=== PATIENT | male | born 1940 | race African-American/Black ===

== ENCOUNTER → 2020-06-25 | Outpatient (CLI) | payer BC ==
--- NOTE | 2020-06-26 02:21 | MR ---
EXAMINATION TYPE: MR brain wo/w con DATE OF EXAM: 06/25/2020 COMPARISON: None HISTORY: Mental status changes. CONTRAST: Standard multiplanar, multisequence MRI departmental protocol utilizing 9 mL intravenous Gadavist pranav olinium contrast. There is diffuse cerebral cortical atrophy. There is no mass effect nor midline shift. There is no si gn of intracranial hemorrhage. There is some thinning of the corpus callosum. Diffusion images show n o evidence of an acute infarct. On the T2 and FLAIR images there are numerous foci of white matter hi gh signal around the lateral ventricles. These are coalescent and measure up to 1 cm. There are small er more peripheral high signal foci at the mullins-white matter junction of both cerebral hemispheres. T he brainstem is intact. Cerebellum is intact. Sella turcica appears intact. The contrast images show no pathologic enhancement. There is normal enhancement of the venous sinuses . IMPRESSION: Extensive white matter coalescent increased signal around the lateral ventricles and mullins-white matte r junction of both cerebral hemispheres. This probably relates to chronic small vessel ischemia. Demy elinating disease also possible. No evidence of an acute infarct. Cerebral atrophy.
== END | disposition home or self-care (01) ==
LOC: RADMRIMAIN 18:31
PROVIDERS: ATTEND Physician Assistant Medical
DX: R90.89 Other abnormal findings on diagnostic imaging of central nervous system (principal); G31.84 Mild cognitive impairment of uncertain or unknown etiology
CPT/HCPCS: 70553; A9585

== ENCOUNTER 2020-12-11 06:50 | Day surgery (SDC) | payer BC ==
[2020-12-10 11:44] VITALS: BMI 31.6
[~2020-12-11 06:50] MED LIST: LACTATED RINGERS 1,000 ML IV SCH; LIDOCAINE 1% (10MG/ML) FOR IV START INTRADERMA PRN
[2020-12-11 07:30] VITALS: TEMP 97.3
[2020-12-11 07:42] LABS: Glucose,Whole Blood 96 mg/dL (75-99)
[2020-12-11] MEDS ORDERED: PROPOFOL 10 MG/ML 20 ML VIAL IV ONE (08:02)
[2020-12-11] MEDS ORDERED: GLUCAGON 1 MG/ML VIAL ONE (08:02)
--- NOTE | 2020-12-11 08:10 | P.GSHP ---
History of Present Illness H&P Date: 12/11/20 Chief Complaint: GI bleed This is a 80-year-old male who's had issues with rectal bleeding. Patient presents today for colonoscopy. Past Medical History Past Medical History: Asthma, Coronary Artery Disease (CAD), Cancer, Diabetes Mellitus, Hyperlipidemia, Hypertension, Myocardial Infarction ([place]) Additional Past Medical History / Comment(s): 12-16-14 ADMITTTED WITH AFIB/FLUTTER. OTHER PAST HX INCLUDES: PROSTATE CANCER. Myocardial infarction Last Myocardial Infarction Date:: 06/30/2015 History of Any Multi-Drug Resistant Organisms: None Reported Past Surgical History: Coronary Bypass/CABG, Heart Catheterization, Heart Catheterization With Stent, Prostate Surgery Additional Past Surgical History / Comment(s): TRIPLE VESSEL CABG-06/30/2015. COLONOSCOPY Past Anesthesia/Blood Transfusion Reactions: No Reported Reaction Date of Last Stent Placement:: 2004 Smoking Status: Former smoker - Past Family History Father Family Medical History: CVA/TIA Mother Family Medical History: Cancer Additional Family Medical History / Comment(s): COLON CANCER Medications and Allergies Home Medications Medication Instructions Recorded Confirmed Type Montelukast [Singulair] 10 mg PO HS 11/26/14 12/11/20 History Atorvastatin [Lipitor] 20 mg PO HS #30 tab 12/14/14 12/11/20 Rx Aspirin EC [Ecotrin Low Dose] 81 mg PO DAILY #60 tablet. 12/19/14 12/11/20 Rx Losartan [Cozaar] 100 mg PO DAILY #60 tab 12/19/14 12/11/20 Rx sitaGLIPtin [Januvia] 100 mg PO DAILY #30 tab 07/02/15 12/11/20 Rx Ergocalciferol [Vitamin D2 (1250 1,250 mcg PO MO 12/10/20 12/11/20 History Mcg = 98364 Iu)] Insulin Detemir [Levemir Flextouch 35 units SQ HS 12/10/20 12/11/20 History Pen] Metoprolol Tartrate [Lopressor] 25 mg PO HS 12/10/20 12/11/20 History Metoprolol Tartrate [Lopressor] 50 mg PO QAM 12/10/20 12/11/20 History glyBURIDE [Diabeta] 5 mg PO AC-BID 12/10/20 12/11/20 History hydroCHLOROthiazide [Hydrodiuril] 25 mg PO DAILY 12/10/20 12/11/20 History Allergies Allergy/AdvReac Type Severity Reaction Status Date / Time No Known Allergies Allergy Verified 12/10/20 11:27 Surgical - Exam Vital Signs Temp Pulse Resp BP Pulse Ox 97.3 F L 67 16 153/78 98 12/11/20 07:24 12/11/20 07:24 12/11/20 07:24 12/11/20 07:24 12/11/20 07:24 - General well developed, well nourished, no distress - Eyes PERRL - ENT normal pinna - Neck no masses - Respiratory normal expansion - Cardiovascular Rhythm: regular - Abdomen Abdomen: soft, non tender Assessment and Plan Assessment: GI bleed. We'll perform colonoscopy.
--- NOTE | 2020-12-11 08:45 | P.OP ---
Date of Procedure: 12/11/20 Preoperative Diagnosis: GI bleed Postoperative Diagnosis: Sigmoid colon mass Procedure(s) Performed: Colonoscopy Anesthesia: MAC Surgeon: Daryl Womack Pathology: other (Sigmoid colon) Condition: stable Disposition: PACU Description of Procedure: The patient's placed on the endoscopy table in the lateral position. He received IV sedation. Digital rectal exam was performed which revealed no abnormalities. The prostate was symmetric without nodules. Flexible colonoscope was then placed patient anus passed throughout the entire colon. Ileocecal valve was visualized. Cecum, ascending and transverse colon appeared normal. The descending colon appeared normal. In the sigmoid colon at approximately 27 cm art there was a friable mass seen. This was biopsied. It had the suspicious characteristics of a colon cancer. The scope was brought back the rectum this appeared normal. Scope was withdrawn for patient.
[2020-12-11 08:50] VITALS: RESP 20
[2020-12-11 09:15] VITALS: BP 110/70; PULSE 58
== END 2020-12-11 09:26 | disposition home or self-care (01) ==
LOC: ORWHC2ENDO 06:50
PROVIDERS: ATTEND Surgery
DX: C18.7 Malignant neoplasm of sigmoid colon (principal); J45.909 Unspecified asthma, uncomplicated; I25.10 Atherosclerotic heart disease of native coronary artery without angina pectoris; E11.9 Type 2 diabetes mellitus without complications; E78.5 Hyperlipidemia, unspecified; I10 Essential (primary) hypertension; I25.2 Old myocardial infarction; Z85.46 Personal history of malignant neoplasm of prostate; I48.91 Unspecified atrial fibrillation; I48.92 Unspecified atrial flutter; Z95.5 Presence of coronary angioplasty implant and graft; Z95.1 Presence of aortocoronary bypass graft; Z98.890 Other specified postprocedural states; Z87.891 Personal history of nicotine dependence; Z82.49 Family history of ischemic heart disease and other diseases of the circulatory system; Z80.0 Family history of malignant neoplasm of digestive organs; Z79.84 Long term (current) use of oral hypoglycemic drugs; Z79.82 Long term (current) use of aspirin; Z79.4 Long term (current) use of insulin; Z79.899 Other long term (current) drug therapy; K92.2 Gastrointestinal hemorrhage, unspecified
CPT/HCPCS: 88305; 45380; J1610; J2704; 45381

== ENCOUNTER → 2020-12-22 | Outpatient (CLI) | payer BC ==
[2020-12-22 13:48] LABS: Potassium 4.7 mmol/L (3.5-5.1)
[2020-12-22 14:03] LABS: HCT 43.7 % (39.0-53.0); HGB 14.1 gm/dL (13.0-17.5); MCH 29.9 pg (25.0-35.0); MCHC 32.3 g/dL (31.0-37.0); MCV 92.6 fL (80.0-100.0); Mean Platelet Volume 7.9; Platelet Count 205 k/uL (150-450); RBC 4.72 m/uL (4.30-5.90); RDW 13.8 % (11.5-15.5); WBC 6.3 k/uL (3.8-10.6)
== END | disposition home or self-care (01) ==
LOC: LABPAT 11:35
PROVIDERS: ATTEND Surgery
DX: Z01.812 Encounter for preprocedural laboratory examination (principal); C18.9 Malignant neoplasm of colon, unspecified
CPT/HCPCS: 80051; 85027

== ENCOUNTER 2020-12-29 08:22 | Inpatient (IN) | payer BC ==
[~2020-12-29 08:22] MED LIST changes: +ACETAMINOPHEN TAB 500 MG TAB PO PRN; +DEXAMETHASONE SOD PHOSPHATE 4 MG/ML 1 ML VIAL IV ONE; +HEPARIN SODIUM,PORCINE/PF 5,000 UNIT/0.5 ML SYRINGE SQ PRN; +HYDROmorphone 0.5 MG/0.5 ML SYRINGE IVP PRN; -LACTATED RINGERS 1,000 ML IV SCH; +MIDAZOLAM 2 MG/2 ML VIAL IV PRN; +ONDANSETRON 4 MG/2 ML VIAL IVP ONE
[2020-12-29 09:07] LABS: Glucose,Whole Blood 178 mg/dL (75-99)
[2020-12-29] MEDS: LACTATED RINGERS 1,000 ML IV SCH (09:08)
[2020-12-29] MEDS ORDERED: MIDAZOLAM 2 MG/2 ML VIAL IVP ONE (10:25)
[2020-12-29] MEDS ORDERED: ALVIMOPAN 12 MG CAPSULE PO ONE (10:54)
--- NOTE | 2020-12-29 10:58 | P.GSHP ---
History of Present Illness H&P Date: 12/29/20 Chief Complaint: Colon cancer Is a 80-year-old male who had complaints of rectal bleeding. Patient's workup with colonoscopy. 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 He presents today for low anterior resection. Past Medical History Past Medical History: Asthma, Coronary Artery Disease (CAD), Cancer, Diabetes Mellitus, Hyperlipidemia, Hypertension, Myocardial Infarction ([place]), Osteoarthritis (OA), Prostate Disorder Additional Past Medical History / Comment(s): PROSTATE CANCER. colon cancer, Last Myocardial Infarction Date:: 06/30/2015 History of Any Multi-Drug Resistant Organisms: None Reported Past Surgical History: Coronary Bypass/CABG, Heart Catheterization, Heart Catheterization With Stent, Prostate Surgery Additional Past Surgical History / Comment(s): TRIPLE VESSEL CABG-06/30/2015, COLONOSCOPY, two cardiac stents Past Anesthesia/Blood Transfusion Reactions: No Reported Reaction Date of Last Stent Placement:: 2004 Smoking Status: Former smoker - Past Family History Father Family Medical History: CVA/TIA Mother Family Medical History: Cancer Additional Family Medical History / Comment(s): COLON CANCER Medications and Allergies Home Medications Medication Instructions Recorded Confirmed Type Montelukast [Singulair] 10 mg PO QAM 11/26/14 12/24/20 History Atorvastatin [Lipitor] 20 mg PO HS #30 tab 12/14/14 12/24/20 Rx Aspirin EC [Ecotrin Low Dose] 81 mg PO DAILY #60 tablet. 12/19/14 12/24/20 Rx sitaGLIPtin [Januvia] 100 mg PO DAILY #30 tab 07/02/15 12/24/20 Rx Ergocalciferol [Vitamin D2 (1250 1,250 mcg PO MO 12/10/20 12/24/20 History Mcg = 38806 Iu)] Insulin Detemir [Levemir Flextouch 35 units SQ HS 12/10/20 12/24/20 History Pen] Metoprolol Tartrate [Lopressor] 25 mg PO HS 12/10/20 12/24/20 History Metoprolol Tartrate [Lopressor] 50 mg PO QAM 12/10/20 12/24/20 History glyBURIDE [Diabeta] 5 mg PO AC-BID 12/10/20 12/24/20 History hydroCHLOROthiazide [Hydrodiuril] 25 mg PO DAILY 12/10/20 12/24/20 History Losartan [Cozaar] 100 mg PO AC-SUPPER 12/24/20 12/24/20 History Allergies Allergy/AdvReac Type Severity Reaction Status Date / Time No Known Allergies Allergy Verified 12/29/20 08:48 Surgical - Exam Vital Signs Temp Pulse Resp BP Pulse Ox 97.4 F L 66 16 154/85 98 12/29/20 08:56 12/29/20 08:56 12/29/20 08:56 12/29/20 08:56 12/29/20 08:56 - General well developed, well nourished, no distress - Eyes PERRL - ENT normal pinna - Neck no masses - Respiratory normal expansion - Cardiovascular Rhythm: regular - Abdomen Abdomen: soft, non tender Results - Labs Abnormal Lab Results - Last 24 Hours (Table) 12/29/20 Range/Units 09:05 POC Glucose (mg/dL) 178 H (75-99) mg/dL Assessment and Plan Assessment: History of colon cancer. We'll perform a low anterior section. I discussed the risk of possible colostomy with the patient and his daughter.
[2020-12-29] MEDS ORDERED: NEOSTIGMINE 1 MG/ML 10 ML VIAL ONE (11:30)
[2020-12-29] MEDS ORDERED: ePHEDrine SULFATE/0.9% NACL/PF 50 MG/5 ML SYRINGE IV ONE (11:30)
[2020-12-29] MEDS ORDERED: PROPOFOL 10 MG/ML 20 ML VIAL IV ONE (11:30)
[2020-12-29] MEDS ORDERED: GLYCOPYRROLATE 0.2 MG/ML 2 ML VIAL ONE (11:30)
[2020-12-29] MEDS ORDERED: MIDAZOLAM 2 MG/2 ML VIAL ONE (11:30)
[2020-12-29] MEDS ORDERED: LIDOCAINE 1% INJ 10MG/ML (20 ML MDV) ONE (11:30)
[2020-12-29] MEDS ORDERED: fentaNYL (PF) 50 MCG/ML 2 ML AMP ONE (11:30)
[2020-12-29] MEDS ORDERED: ROCURONIUM 10 MG/ML (5 ML VIAL) IV ONE (11:30)
[2020-12-29] MEDS ORDERED: SUCCINYLCHOLINE CHLORIDE 100 MG/5 ML SYR IV ONE (11:30)
[2020-12-29] MEDS ORDERED: NALOXONE 0.4 MG/ML 1 ML VIAL IV PRN (11:30)
--- NOTE | 2020-12-29 11:30 | P.ANPRN ---
Procedure Note - Anesthesia - Epidural/Spinal Epidural Continuous Time Out Performed: Yes Date of Procedure: 12/29/20 Procedure Start Time: 10:24 Procedure Stop Time: 10:38 Location of Patient: PreOp Indication: Acute Post-Operative Pain Sedation Type: Sedate with meaningful contact maintained Preparation: Sterile Dressing Position: Sitting Catheter: Indwelling Needle Guage: 18 Injectate: Test Dose Lidocaine1.5% w/1:200,000 epi (3cc without response) Blood Aspirated: No Pain Paresthesia on Injection Noted: No Events: Uneventful and Well Tolerated
[2020-12-29] MEDS: metroNIDAZOLE-NS PMX 500 MG in SALINE 1 100ML.BAG IVPB PRN ×2 (11:50→12:02)
[2020-12-29] MEDS ORDERED: LACTATED RINGERS 1,000 ML IV ONE (12:29)
[2020-12-29] MEDS ORDERED: METOCLOPRAMIDE 5 MG/ML 2 ML VIAL IVP PRN (13:01)
--- NOTE | 2020-12-29 13:01 | P.OP ---
Date of Procedure: 12/29/20 Preoperative Diagnosis: Sigmoid colon cancer Postoperative Diagnosis: Sigmoid colon cancer Procedure(s) Performed: Low anterior resection Anesthesia: DAYNA Surgeon: Daryl Womack Estimated Blood Loss (ml): 25 Pathology: other (Sigmoid colon) Condition: stable Disposition: PACU Description of Procedure: DESCRIPTION OF PROCEDURE: The patient was placed on the operating table in the supine position. Patient received a general anesthesia. Patient was then placed in the dorsal lithotomy position. The patients abdomen was prepped and draped in the usual sterile fashion. Through a low midline incision, the abdomen was entered. The Cooper retractor was placed in the wound. The stomach appeared normal. The small bowel appeared normal. The liver appeared normal. The right colon and transverse colon appeared normal. On the left colon, there was an extensive diverticulosis noted. The sigmoid colon was then mobilized by dividing the white line of Toldt with electrocautery. At this point, the proximal sigmoid colon was transected with a GI stapler after a window had been made in the mesentery. The distal sigmoid colon was then dissected. Mesentery was taken down between Nell clamps and ligated with #0 silk ties. At a point beyond the lesion, the bowel was then transected with a Proximate stapler. This was then removed. The splenic flexure was then taken down in order to provide adequate lengthening of the sigmoid colon. At this point, the auto purse-string suture device was placed across the proximal colon and fired. The colon was then opened. The 29 mm EEA anvil was then placed into the colon and then the purse-string was secured. The EEA stapler device was then placed in the patients anus and passed into the rectum. The nail for the EEA was then brought out through the distal rectum and then attached to the anvil. The EEA stapler device was then fired. The anastomosis was inspected. There were 2 good donuts of tissue removed from the EEA stapler. The anastomosis was then tested under water and there was no air leak seen. At this point the abdomen was then irrigated. There was no bleeding seen. The fascia was then closed with double stranded #1 PDS. The skin was closed with li. The patient tolerated the procedure well.
[2020-12-29 13:34] LABS: Glucose,Whole Blood 185 mg/dL (75-99)
[2020-12-29] MEDS: ROPIVACAINE 250 MG, fentaNYL (PF) 625 MCG in SODIUM CHLORIDE 0.9% 188 ML EPIDURAL PRN (13:47)
[2020-12-29] MEDS: D5-0.45% NACL WITH KCL 20MEQ/L 1,000 ML IV SCH (17:51)
[2020-12-29] MEDS: HEPARIN SODIUM,PORCINE/PF 5,000 UNIT/0.5 ML SYRINGE SQ SCH ×2 (17:51→22:49)
[2020-12-29 19:33] LABS: Glucose,Whole Blood 185 mg/dL (75-99)
[2020-12-30] MEDS: D5-0.45% NACL WITH KCL 20MEQ/L 1,000 ML IV SCH ×4 (03:41→18:13)
--- NOTE | 2020-12-30 07:34 | P.PN ---
Progress Note - Text Progress Note Date: 12/30/20 Postoperative day # 1 status post low anterior resection ,epidural catheter placed for postoperative analgesia, patient doing well epidural site okay, patient currently on combination of epidural infusion solution of Ropivacaine 0.0625% and FentanyL the infusion rate at 10 ml per hour , patient had no motor deficit epidural site okay , vital signs stable ,VAS 0/10 , Assessment and plan= post operative day #1 patient doing well ,pain well controlled , there is no anesthesia related complications
[2020-12-30] MEDS: LACTATED RINGERS 1,000 ML IV SCH ×2 (07:38→22:56)
[2020-12-30] MEDS: ALVIMOPAN 12 MG CAPSULE PO SCH ×2 (08:04→21:04)
[2020-12-30] MEDS: HEPARIN SODIUM,PORCINE/PF 5,000 UNIT/0.5 ML SYRINGE SQ SCH ×2 (08:04→15:24)
[2020-12-30 09:09] LABS: Basophils % (A) 0 %; Eosinophils # (A) 0.2 k/uL (0-0.7); Eosinophils % (A) 2 %; HCT 38.6 % (39.0-53.0); HGB 12.9 gm/dL (13.0-17.5); Lymphocytes # (A) 2.1 k/uL (1.0-4.8); Lymphocytes % (A) 19 %; MCHC 33.5 g/dL (31.0-37.0); MCV 89.6 fL (80.0-100.0); Mean Platelet Volume 7.3; Monocytes # (A) 0.5 k/uL (0-1.0); Monocytes % (A) 4 %; Neutrophils # (A) 7.9 k/uL (1.3-7.7); Neutrophils % (A) 73 %; Platelet Count 200 k/uL (150-450); RBC 4.31 m/uL (4.30-5.90); RDW 14.3 % (11.5-15.5); WBC 10.9 k/uL (3.8-10.6)
[2020-12-30 09:29] LABS: African American GFR (CKD) 62 (>60 ml/min/1.73 sqM); Anion Gap 4 mmol/L; Blood Urea Nitrogen 11 mg/dL (9-20); Calcium 8.6 mg/dL (8.4-10.2); Carbon Dioxide 27 mmol/L (22-30); Chloride 104 mmol/L (98-107); Glucose 215 mg/dL (74-99); Non-African American GFR(CKD) 54 (>60 ml/min/1.73 sqM); Potassium 4.4 mmol/L (3.5-5.1); Sodium 135 mmol/L (137-145)
[2020-12-30] MEDS: METOPROLOL TARTRATE 25 MG TAB PO SCH ×2 (10:09→21:04)
[2020-12-30] MEDS: hydroCHLOROthiazide 25 MG TAB PO SCH (10:09)
[2020-12-30] MEDS: SIMETHICONE 40 MG/0.6 ML DROPS 2,000 MG/30 ML BOTTLE PO SCH ×4 (10:10→21:04)
[2020-12-30 11:25] LABS: Glucose,Whole Blood 206 mg/dL (75-99)
[2020-12-30] MEDS: ROPIVACAINE 250 MG, fentaNYL (PF) 625 MCG in SODIUM CHLORIDE 0.9% 188 ML EPIDURAL PRN (11:37)
--- NOTE | 2020-12-30 11:51 | P.PN ---
Subjective Progress Note Date: 12/30/20 CHIEF COMPLAINT: Sigmoid colon cancer HISTORY OF PRESENT ILLNESS: Patient is status post lower anterior resection and appendectomy. Postop day #1. Patient has epidural in place. He reports his pain is controlled. Denies any nausea or vomiting. He is complaining of some gas pains denies any flatus or BM. Currently nothing by mouth. Afebrile. WBC is 10.9 hemoglobin 12.9 and platelets 200 sodium 135 potassium 4.4 creatinine is 1.26 glucose 215 urine output adequate PHYSICAL EXAM: VITAL SIGNS: Reviewed. GENERAL: Well-developed in no acute distress. HEENT: No sclera icterus. Extraocular movements grossly intact. Moist buccal mucosa. Head is atraumatic, normocephalic. ABDOMEN: Soft. Mildly distended. There is 3 small areas of small blood saturation noted on incisional dressing. And also noted at the distal aspect of the incisional dressing NEUROLOGIC: Alert and oriented. Cranial nerves II through XII grossly intact. ASSESSMENT: 1. Sigmoid colon cancer status post lower anterior resection and appendectomy PLAN: -Continue epidural for pain control -Continue Sandoval catheter -Keep patient nothing by mouth except for ice chips, gum and medications -Add Mylicon gas drops for gas pains -continue IV fluids -Encouraged patient to use incentive spirometer -Encouraged patient to increase activity -DVT prophylaxis subcu heparin and GI prophylaxis will add protonix Physician Billing Typist note has been reviewed by physician. Signing provider agrees with the documented findings, assessment, and plan of care. Objective - Vital Signs Vital signs: Vital Signs Temp 99.1 F 12/30/20 05:24 Pulse 89 12/30/20 05:24 Resp 16 12/30/20 05:24 BP 114/72 12/30/20 05:24 Pulse Ox 96 12/30/20 05:24 Intake & Output 12/29/20 12/30/20 12/30/20 18:59 06:59 18:59 Intake Total 2117 Output Total 800 600 Balance 1318 -600 Weight 90 kg Intake: IV 2117 Output: Urine 770 600 Estimated Blood Loss 30 Other: Voiding Method Indwelling Catheter Indwelling Catheter # Bowel Movements 0 0 - Labs CBC & Chem 7: 12/30/20 09:00 12/30/20 09:00 Labs: Abnormal Lab Results - Last 24 Hours (Table) 12/29/20 12/29/20 12/30/20 Range/Units 13:32 19:30 09:00 WBC 10.9 H (3.8-10.6) k/uL Hgb 12.9 L (13.0-17.5) gm/dL Hct 38.6 L (39.0-53.0) % Neutrophils # 7.9 H (1.3-7.7) k/uL Sodium (137-145) mmol/L Creatinine (0.66-1.25) mg/dL Glucose (74-99) mg/dL POC Glucose (mg/dL) 185 H 185 H (75-99) mg/dL 12/30/20 12/30/20 Range/Units 09:00 11:23 WBC (3.8-10.6) k/uL Hgb (13.0-17.5) gm/dL Hct (39.0-53.0) % Neutrophils # (1.3-7.7) k/uL Sodium 135 L (137-145) mmol/L Creatinine 1.26 H (0.66-1.25) mg/dL Glucose 215 H (74-99) mg/dL POC Glucose (mg/dL) 206 H (75-99) mg/dL
[2020-12-30] MEDS: PANTOPRAZOLE 40 MG/10 ML VIAL IVP SCH (13:07)
[2020-12-30] MEDS: INSULIN ASPART (NovoLOG) 100 UNIT/ML VIAL SQ SCH ×3 (13:08→21:04)
[2020-12-30] MEDS: LOSARTAN 50 MG TAB PO SCH (15:25)
[2020-12-30 17:11] LABS: Glucose,Whole Blood 167 mg/dL (75-99)
[2020-12-30 20:55] LABS: Glucose,Whole Blood 182 mg/dL (75-99)
[2020-12-30] MEDS: ATORVASTATIN 20 MG TAB PO SCH (21:04)
[2020-12-31] MEDS: HEPARIN SODIUM,PORCINE/PF 5,000 UNIT/0.5 ML SYRINGE SQ SCH ×3 (00:14→18:02)
[2020-12-31] MEDS: D5-0.45% NACL WITH KCL 20MEQ/L 1,000 ML IV SCH ×3 (02:10→20:28)
[2020-12-31 07:19] LABS: Glucose,Whole Blood 247 mg/dL (75-99)
--- NOTE | 2020-12-31 08:26 | P.CONS ---
History of Present Illness - Reason for Consult Consult date: 12/30/20 Requesting physician: Daryl Womack - History of Present Illness Issa Jennings is a 80 yo M with PMH of T2DM, HTN who is admitted for LAR. He was noted with rectal bleeding and on subsequent colonoscopy was found to have colorectal cancer. He is POD#1 today, overall feeling well, denies abdominal pain, nausea, vomiting. He has epidural in place today. He has not had a bowel movement. He has not yet had a chance to see Oncology. Review of Systems All systems: negative Constitutional: Reports weakness, Denies chills, Denies fever Eyes: denies blurred vision, denies pain Ears, nose, mouth and throat: Denies headache, Denies sore throat Cardiovascular: Denies chest pain, Denies shortness of breath Respiratory: Denies cough Gastrointestinal: Denies abdominal pain, Denies diarrhea, Denies nausea, Denies vomiting Musculoskeletal: Denies myalgias Integumentary: Denies pruritus, Denies rash Neurological: Denies numbness, Denies weakness Psychiatric: Denies anxiety, Denies depression Endocrine: Denies fatigue, Denies weight change Past Medical History Past Medical History: Asthma, Coronary Artery Disease (CAD), Cancer, Diabetes Mellitus, Hyperlipidemia, Hypertension, Myocardial Infarction ([place]), Osteoarthritis ([place]), Prostate Disorder Additional Past Medical History / Comment(s): PROSTATE CANCER. colon cancer, Last Myocardial Infarction Date:: 06/30/2015 History of Any Multi-Drug Resistant Organisms: None Reported Past Surgical History: Coronary Bypass/CABG, Heart Catheterization, Heart Catheterization With Stent, Prostate Surgery Additional Past Surgical History / Comment(s): TRIPLE VESSEL CABG-06/30/2015, COLONOSCOPY, two cardiac stents Past Anesthesia/Blood Transfusion Reactions: No Reported Reaction Date of Last Stent Placement:: 2004 Smoking Status: Former smoker - Past Family History Father Family Medical History: CVA/TIA Mother Family Medical History: Cancer Additional Family Medical History / Comment(s): COLON CANCER Medications and Allergies Home Medications Medication Instructions Recorded Confirmed Type Montelukast [Singulair] 10 mg PO QAM 11/26/14 12/24/20 History Atorvastatin [Lipitor] 20 mg PO HS #30 tab 12/14/14 12/24/20 Rx Aspirin EC [Ecotrin Low Dose] 81 mg PO DAILY #60 tablet. 12/19/14 12/24/20 Rx sitaGLIPtin [Januvia] 100 mg PO DAILY #30 tab 07/02/15 12/24/20 Rx Ergocalciferol [Vitamin D2 (1250 1,250 mcg PO MO 12/10/20 12/24/20 History Mcg = 47215 Iu)] Insulin Detemir [Levemir Flextouch 35 units SQ HS 12/10/20 12/24/20 History Pen] Metoprolol Tartrate [Lopressor] 25 mg PO HS 12/10/20 12/24/20 History Metoprolol Tartrate [Lopressor] 50 mg PO QAM 12/10/20 12/24/20 History glyBURIDE [Diabeta] 5 mg PO AC-BID 12/10/20 12/24/20 History hydroCHLOROthiazide [Hydrodiuril] 25 mg PO DAILY 12/10/20 12/24/20 History Losartan [Cozaar] 100 mg PO AC-SUPPER 12/24/20 12/24/20 History Allergies Allergy/AdvReac Type Severity Reaction Status Date / Time No Known Allergies Allergy Verified 12/29/20 08:48 Physical Exam Vitals: Vital Signs Temp Pulse Resp BP BP Pulse Ox 12/31/20 05:00 100.4 F H 95 16 102/66 95 12/30/20 20:22 99.4 F 70 16 164/92 96 12/30/20 15:20 98.6 F 103 H 16 126/76 95 12/30/20 13:05 55 L 123/66 12/30/20 12:52 99.6 F 96 17 143/91 98 Intake and Output 12/30/20 12/31/20 12/31/20 22:59 06:59 14:59 Intake Total 30 1215 Output Total 200 1100 Balance -170 115 Intake: Intake, IV Titration 1200 Amount D5-0.45% NaCl with KCl 1200 20Meq/l 1,000 ml @ 125 mls/hr IV .Q8H [facility] Rx#: [id number] Oral 30 15 Output: Urine 200 1100 Other: Voiding Method Indwelling Catheter # Bowel Movements 0 General: elderly male in NAD, vitals reviewed HEENT: normocephalic, atraumatic, mucus membranes moist Neck: supple, no thyromegaly, no JVD CV: RRR, no murmur. Pulses 2+ Lungs: Normal effort, clear throughout Abd: soft, generalized tenderness Neuro: alert and oriented x3, no focal deficits Skin: warm and dry Results CBC & Chem 7: 12/30/20 09:00 12/30/20 09:00 Labs: Abnormal Lab Results - Last 24 Hours (Table) 12/30/20 12/30/20 12/30/20 Range/Units 09:00 09:00 11:23 WBC 10.9 H (3.8-10.6) k/uL Hgb 12.9 L (13.0-17.5) gm/dL Hct 38.6 L (39.0-53.0) % Neutrophils # 7.9 H (1.3-7.7) k/uL Sodium 135 L (137-145) mmol/L Creatinine 1.26 H (0.66-1.25) mg/dL Glucose 215 H (74-99) mg/dL POC Glucose (mg/dL) 206 H (75-99) mg/dL 12/30/20 12/30/20 12/31/20 Range/Units 17:05 20:54 07:16 WBC (3.8-10.6) k/uL Hgb (13.0-17.5) gm/dL Hct (39.0-53.0) % Neutrophils # (1.3-7.7) k/uL Sodium (137-145) mmol/L Creatinine (0.66-1.25) mg/dL Glucose (74-99) mg/dL POC Glucose (mg/dL) 167 H 182 H 247 H (75-99) mg/dL Assessment and Plan Plan: 1. Colorectal cancer s/p LAR. Await pathology, advance diet per surgery. Will need outpatient follow up with Oncology and surgery 2. HTN. Resume home antihypertensives 3. T2DM. Hold jauvia. Accucheck, sliding scale insulin
[2020-12-31] MEDS: ALVIMOPAN 12 MG CAPSULE PO SCH ×2 (09:04→20:29)
[2020-12-31] MEDS: PANTOPRAZOLE 40 MG/10 ML VIAL IVP SCH (09:04)
[2020-12-31] MEDS: hydroCHLOROthiazide 25 MG TAB PO SCH (09:05)
[2020-12-31] MEDS: METOPROLOL TARTRATE 25 MG TAB PO SCH ×2 (09:05→20:28)
[2020-12-31] MEDS: SIMETHICONE 40 MG/0.6 ML DROPS 2,000 MG/30 ML BOTTLE PO SCH ×4 (09:06→20:29)
[2020-12-31] MEDS: INSULIN ASPART (NovoLOG) 100 UNIT/ML VIAL SQ SCH ×4 (09:07→20:28)
[2020-12-31 09:37] LABS: Basophils % (A) 0 %; Eosinophils # (A) 0.1 k/uL (0-0.7); Eosinophils % (A) 1 %; HCT 43.2 % (39.0-53.0); HGB 14.1 gm/dL (13.0-17.5); Lymphocytes # (A) 1.2 k/uL (1.0-4.8); Lymphocytes % (A) 13 %; MCH 30.1 pg (25.0-35.0); MCHC 32.6 g/dL (31.0-37.0); MCV 92.1 fL (80.0-100.0); Mean Platelet Volume 7.5; Monocytes # (A) 0.5 k/uL (0-1.0); Monocytes % (A) 6 %; Neutrophils % (A) 79 %; Platelet Count 201 k/uL (150-450); RBC 4.69 m/uL (4.30-5.90); RDW 14.2 % (11.5-15.5); WBC 8.8 k/uL (3.8-10.6)
[2020-12-31 09:46] LABS: African American GFR (CKD) 57 (>60 ml/min/1.73 sqM); Anion Gap 5 mmol/L; Blood Urea Nitrogen 9 mg/dL (9-20); Calcium 8.7 mg/dL (8.4-10.2); Carbon Dioxide 24 mmol/L (22-30); Chloride 105 mmol/L (98-107); Glucose 271 mg/dL (74-99); Non-African American GFR(CKD) 50 (>60 ml/min/1.73 sqM); Potassium 4.7 mmol/L (3.5-5.1); Sodium 134 mmol/L (137-145)
[2020-12-31 11:24] LABS: Glucose,Whole Blood 219 mg/dL (75-99)
[2020-12-31] MEDS: ROPIVACAINE 250 MG, fentaNYL (PF) 625 MCG in SODIUM CHLORIDE 0.9% 188 ML EPIDURAL PRN (12:11)
--- NOTE | 2020-12-31 12:57 | P.PN ---
Subjective Progress Note Date: 12/31/20 CHIEF COMPLAINT: Sigmoid colon cancer HISTORY OF PRESENT ILLNESS: Patient is status post lower anterior resection and appendectomy. Postop day #2. Patient has epidural in place. He reports his pain is controlled. Denies any nausea or vomiting. Patient denies any flatus or BM. Patient did have a temp of 100.4 this morning. WBC 8.8 hemoglobin 14.1 platelets 201 sodium 134 creatinine 1.35 glucose 219 PHYSICAL EXAM: VITAL SIGNS: Reviewed. GENERAL: Well-developed in no acute distress. HEENT: No sclera icterus. Extraocular movements grossly intact. Moist buccal mucosa. Head is atraumatic, normocephalic. ABDOMEN: Soft. Mildly distended. Incision site clean dry and intact NEUROLOGIC: Alert and oriented. Cranial nerves II through XII grossly intact. ASSESSMENT: 1. Sigmoid colon cancer status post lower anterior resection and appendectomy 2. Low-grade temperature 0.4 likely due to atelectasis. We'll monitor PLAN: -Continue epidural for pain control -Continue Sandoval catheter -Keep patient nothing by mouth except for ice chips, gum and medications -continue IV fluids -Encouraged patient to use incentive spirometer -Encouraged patient to increase activity -DVT prophylaxis subcu heparin and GI prophylaxis protonix Physician Structural Engineering Technician note has been reviewed by physician. Signing provider agrees with the documented findings, assessment, and plan of care. Objective - Vital Signs Vital signs: Vital Signs Temp 98.3 F 12/31/20 12:36 Pulse 89 12/31/20 12:36 Resp 17 12/31/20 12:36 BP 128/79 12/31/20 12:36 Pulse Ox 97 12/31/20 12:36 Intake & Output 12/30/20 12/31/20 12/31/20 18:59 06:59 18:59 Intake Total 1245 245.667 Output Total 700 1100 Balance -700 145 245.667 Intake: Intake, IV Titration 1200 245.667 Amount D5-0.45% NaCl with KCl 1200 20Meq/l 1,000 ml @ 125 mls/hr IV .Q8H [facility] Rx#: [id number] Ropivacaine 250 mg 245.667 fentaNYL (PF) 625 mcg In Sodium Chloride 0.9% 188 ml @ Per Protocol EPIDURAL .Q0M PRN Rx#: [id number] Oral 45 Output: Urine 700 1100 Other: Voiding Method Indwelling Catheter Indwelling Catheter Indwelling Catheter # Bowel Movements 0 - Labs CBC & Chem 7: 12/31/20 09:12 12/31/20 09:12 Labs: Abnormal Lab Results - Last 24 Hours (Table) 12/30/20 12/30/20 12/31/20 Range/Units 17:05 20:54 07:16 Sodium (137-145) mmol/L Creatinine (0.66-1.25) mg/dL Glucose (74-99) mg/dL POC Glucose (mg/dL) 167 H 182 H 247 H (75-99) mg/dL 12/31/20 12/31/20 Range/Units 09:12 11:13 Sodium 134 L (137-145) mmol/L Creatinine 1.35 H (0.66-1.25) mg/dL Glucose 271 H (74-99) mg/dL POC Glucose (mg/dL) 219 H (75-99) mg/dL
--- NOTE | 2020-12-31 15:17 | P.PN ---
Progress Note - Text Progress Note Date: 12/31/20 Anesthesia Postop day 2 Status post low anterior resection with epidural catheter day #3 Patient seen and examined. Doing well without complaint. VAS 9 out of 10rest able. Patient very happy with pain control. No nausea vomiting or pruritus. Ropivacaine 0.1% with fentanyl 2.5 mcg/mL at 10 mL an hour. Objective: Vital signs reviewed Lungs: Good chest excursion Abdomen: Appears nondistended Other: Epidural Site Intact without induration. Dressing intact Neuro: No apparent motor block. Sensory within normal limits. Assessment: Status post low anterior resection with epidural postoperative day #2 Plan: Continue current care with your medical management. Anticipate catheter removal tomorrow. Discussed with nurse about holding heparin in a.m.
--- NOTE | 2020-12-31 15:38 | P.PN ---
Subjective Progress Note Date: 12/31/20 Issa Jennings is a 80 yo M with PMH of T2DM, HTN who is admitted for LAR. He was noted with rectal bleeding and on subsequent colonoscopy was found to have colorectal cancer. He is POD#1 today, overall feeling well, denies abdominal pain, nausea, vomiting. He has epidural in place today. He has not had a bowel movement. He has not yet had a chance to see Oncology. 12/31/2020 Pain controlled with epidural. Tolerating ice chips. Denies nausea vomiting. Minimal flatus. T-max 100.4, afebrile. Creatinine up to 1.35., Glucose 219. 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 Benign appendix without histopathologic abnormality. Objective - Vital Signs Vital signs: Vital Signs Temp 98.3 F 12/31/20 12:36 Pulse 89 12/31/20 12:36 Resp 17 12/31/20 12:36 BP 128/79 12/31/20 12:36 Pulse Ox 97 12/31/20 12:36 Intake & Output 12/30/20 12/31/20 12/31/20 18:59 06:59 18:59 Intake Total 1245 245.667 Output Total 700 1100 Balance -700 145 245.667 Intake: Intake, IV Titration 1200 245.667 Amount D5-0.45% NaCl with KCl 1200 20Meq/l 1,000 ml @ 125 mls/hr IV .Q8H [facility] Rx#: [id number] Ropivacaine 250 mg 245.667 fentaNYL (PF) 625 mcg In Sodium Chloride 0.9% 188 ml @ Per Protocol EPIDURAL .Q0M PRN Rx#: [id number] Oral 45 Output: Urine 700 1100 Other: Voiding Method Indwelling Catheter Indwelling Catheter Indwelling Catheter # Bowel Movements 0 - Exam General: elderly male in NAD, vitals reviewed HEENT: normocephalic, atraumatic, mucus membranes moist Neck: supple, no thyromegaly, no JVD CV: RRR, no murmur. Pulses 2+ Lungs: Normal effort, clear throughout Abd: soft, generalized tenderness Neuro: alert and oriented x3, no focal deficits Skin: warm and dry - Labs CBC & Chem 7: 12/31/20 09:12 12/31/20 09:12 Labs: Abnormal Lab Results - Last 24 Hours (Table) 12/30/20 12/30/20 12/31/20 Range/Units 17:05 20:54 07:16 Sodium (137-145) mmol/L Creatinine (0.66-1.25) mg/dL Glucose (74-99) mg/dL POC Glucose (mg/dL) 167 H 182 H 247 H (75-99) mg/dL 12/31/20 12/31/20 Range/Units 09:12 11:13 Sodium 134 L (137-145) mmol/L Creatinine 1.35 H (0.66-1.25) mg/dL Glucose 271 H (74-99) mg/dL POC Glucose (mg/dL) 219 H (75-99) mg/dL Assessment and Plan Assessment: Colorectal cancer status post LAR and appendectomy. Hypertension Diabetes mellitus type 2 Plan: Continue on current medication regime ,monitoring and symptomatic treatment. Diet advancement as per surgery. Pain management. Increase ambulation as tolerated. Aggressive pulmonary toileting with incentive spirometer reinforced. Close monitoring of renal function with repeat labs ordered for a.m. The impression and plan of care has been dictated as directed. : I performed a history and examination of this patient, discussed the same with the dictator. I agree with the dictator's note ,documented as a scribe. Any additional findings or plans will be noted.
[2020-12-31 17:27] LABS: Glucose,Whole Blood 195 mg/dL (75-99)
[2020-12-31] MEDS: LOSARTAN 50 MG TAB PO SCH (18:08)
[2020-12-31 19:58] LABS: Glucose,Whole Blood 147 mg/dL (75-99)
[2020-12-31] MEDS: ATORVASTATIN 20 MG TAB PO SCH (20:28)
[2021-01-01] MEDS: HEPARIN SODIUM,PORCINE/PF 5,000 UNIT/0.5 ML SYRINGE SQ SCH ×3 (00:16→18:03)
[2021-01-01 07:08] LABS: Glucose,Whole Blood 221 mg/dL (75-99)
[2021-01-01] MEDS: LACTATED RINGERS 1,000 ML IV SCH (08:54)
[2021-01-01] MEDS: METOPROLOL TARTRATE 25 MG TAB PO SCH ×2 (09:02→22:18)
[2021-01-01] MEDS: ALVIMOPAN 12 MG CAPSULE PO SCH ×2 (09:02→22:17)
[2021-01-01] MEDS: PANTOPRAZOLE 40 MG/10 ML VIAL IVP SCH (09:03)
[2021-01-01] MEDS: INSULIN ASPART (NovoLOG) 100 UNIT/ML VIAL SQ SCH ×4 (09:03→22:16)
[2021-01-01] MEDS: SIMETHICONE 40 MG/0.6 ML DROPS 2,000 MG/30 ML BOTTLE PO SCH ×4 (09:03→22:18)
--- NOTE | 2021-01-01 10:53 | P.PN ---
Subjective Progress Note Date: 01/01/21 CHIEF COMPLAINT: Sigmoid colon cancer HISTORY OF PRESENT ILLNESS: Patient is status post lower anterior resection and appendectomy. Postop day #3. Patient reports his pain is controlled. Currently has epidural in place. He did have some nausea. No vomiting. He is having flatus. No bowel movement. Afebrile. BMP pending PHYSICAL EXAM: VITAL SIGNS: Reviewed. GENERAL: Well-developed in no acute distress. HEENT: No sclera icterus. Extraocular movements grossly intact. Moist buccal mucosa. Head is atraumatic, normocephalic. ABDOMEN: Soft. Mildly distended. Incision dressing small area of saturation yellowish color NEUROLOGIC: Alert and oriented. Cranial nerves II through XII grossly intact. ASSESSMENT: 1. 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 Signing provider agrees with the documented findings, assessment, and plan of care. Objective - Vital Signs Vital signs: Vital Signs Temp 98.9 F 01/01/21 05:00 Pulse 70 01/01/21 05:00 Resp 17 01/01/21 05:00 BP 99/63 01/01/21 05:00 Pulse Ox 97 01/01/21 05:00 Intake & Output 12/31/20 01/01/21 01/01/21 18:59 06:59 18:59 Intake Total 805.600 3615 Output Total 350 1200 Balance -104.333 300 Intake: Intake, IV Titration 035.193 1093 Amount D5-0.45% NaCl with KCl 1500 20Meq/l 1,000 ml @ 125 mls/hr IV .Q8H [facility] Rx#: [id number] Ropivacaine 250 mg 245.667 fentaNYL (PF) 625 mcg In Sodium Chloride 0.9% 188 ml @ Per Protocol EPIDURAL .Q0M PRN Rx#: [id number] Output: Urine 350 1200 Other: Voiding Method Indwelling Catheter Indwelling Catheter # Bowel Movements 0 - Labs CBC & Chem 7: 12/31/20 09:12 12/31/20 09:12 Labs: Abnormal Lab Results - Last 24 Hours (Table) 12/31/20 12/31/20 12/31/20 Range/Units 11:13 17:24 19:57 POC Glucose (mg/dL) 219 H 195 H 147 H (75-99) mg/dL 01/01/21 Range/Units 07:06 POC Glucose (mg/dL) 221 H (75-99) mg/dL
--- NOTE | 2021-01-01 11:26 | P.PN ---
Progress Note - Text Progress Note Date: 01/01/21 Anesthesia Postop day #3 Status post low anterior resection with epidural day #4 Patient seen and examined. Doing well without complaint. VAS 9 out of 10. Rest able. No nausea vomiting or pruritus. Ropivacaine 0.1% with fentanyl 2.5 mcg/mL at 10 mL an hour. Objective: Vital signs reviewed Lungs: Good chest excursion Abdomen: Appears nondistended Other: Epidural Site Intact without induration. Dressing intact Neuro: No apparent motor block. Sensory within normal limits. Assessment: Status post low anterior resection postop day #4 Plan: Continue current care with your medical management. Discontinue epidural. Communicated with nurse. Heparin to continue to be held until after epidural pull.
[2021-01-01] MEDS: HYDROcodone/APAP 5-325MG 1 EACH TAB PO PRN ×2 (11:56→19:21)
[2021-01-01] MEDS: D5-0.45% NACL WITH KCL 20MEQ/L 1,000 ML IV SCH ×3 (12:10→23:47)
[2021-01-01 12:15] LABS: Glucose,Whole Blood 205 mg/dL (75-99)
[2021-01-01] MEDS: HYDROmorphone 1 MG/ML 1 ML SYRINGE IVP PRN (14:24)
--- NOTE | 2021-01-01 16:22 | P.PN ---
Subjective Progress Note Date: 01/01/21 Issa Jennings is a 80 yo M with PMH of T2DM, HTN who is admitted for LAR. He was noted with rectal bleeding and on subsequent colonoscopy was found to have colorectal cancer. He is POD#1 today, overall feeling well, denies abdominal pain, nausea, vomiting. He has epidural in place today. He has not had a bowel movement. He has not yet had a chance to see Oncology. 12/31/2020 Pain controlled with epidural. Tolerating ice chips. Denies nausea vomiting. Minimal flatus. T-max 100.4, afebrile. Creatinine up to 1.35., Glucose 219. 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 Benign appendix without histopathologic abnormality. 01/01/2021 scheduled to have epidural discontinued today. Reports bloatedness, minimal passing of flatus, no bowel movement with mild nausea. Abdomen dist ended. Pain controlled. T-max 99. Labs pending. Reports he ambulated in the hallway yesterday, tolerating exertion well. Denies chest pain, palpitations or shortness of breath. Maintaining O2 sats in the high 90s on room air. Objective - Vital Signs Vital signs: Vital Signs Temp 98.9 F 01/01/21 05:00 Pulse 70 01/01/21 05:00 Resp 17 01/01/21 05:00 BP 99/63 01/01/21 05:00 Pulse Ox 97 01/01/21 05:00 Intake & Output 12/31/20 01/01/21 01/01/21 18:59 06:59 18:59 Intake Total 392.572 7256 Output Total 350 1200 Balance -104.333 300 Intake: Intake, IV Titration 511.777 5727 Amount D5-0.45% NaCl with KCl 1500 20Meq/l 1,000 ml @ 125 mls/hr IV .Q8H [facility] Rx#: [id number] Ropivacaine 250 mg 245.667 fentaNYL (PF) 625 mcg In Sodium Chloride 0.9% 188 ml @ Per Protocol EPIDURAL .Q0M PRN Rx#: [id number] Output: Urine 350 1200 Other: Voiding Method Indwelling Catheter Indwelling Catheter # Bowel Movements 0 - Exam General: elderly male in NAD, vitals reviewed HEENT: normocephalic, atraumatic, mucus membranes moist Neck: supple, no thyromegaly, no JVD CV: RRR, no murmur. Pulses 2+ Lungs: Normal effort, clear throughout Abd: soft, distended, generalized tenderness Neuro: alert and oriented x3, no focal deficits Skin: warm and dry - Labs CBC & Chem 7: 12/31/20 09:12 12/31/20 09:12 Labs: Abnormal Lab Results - Last 24 Hours (Table) 12/31/20 12/31/20 12/31/20 Range/Units 11:13 17:24 19:57 POC Glucose (mg/dL) 219 H 195 H 147 H (75-99) mg/dL 01/01/21 Range/Units 07:06 POC Glucose (mg/dL) 221 H (75-99) mg/dL Assessment and Plan Assessment: Colorectal cancer status post LAR and appendectomy. Hypertension Diabetes mellitus type 2 Plan: Continue on current medication regime ,monitoring and symptomatic treatment. Diet advancement/ Pain management as per surgery. Increase ambulation as tolerated. Aggressive pulmonary toileting with incentive spirometer reinforced. BMP pending- Close monitoring of renal function with repeat labs ordered for a.m. The impression and plan of care has been dictated as directed. : I performed a history and examination of this patient, discussed the same with the dictator. I agree with the dictator's note ,documented as a scribe. Any a dditional findings or plans will be noted.
[2021-01-01 17:11] LABS: African American GFR (CKD) 52.7 (60.0-200.0); Anion Gap 14.6 mmol/L (4.00-12.00); BUN/Creat Ratio 5.69 Ratio (12.00-20.00); Blood Urea Nitrogen 8.3 mg/dL (9.0-27.0); Calcium 8.6 mg/dL (8.7-10.3); Carbon Dioxide 18.6 mmol/L (21.6-31.8); Non-African American GFR(CKD) 45.5 (60.0-200.0); Potassium 4.9 mmol/L (3.5-5.5)
[2021-01-01 17:23] LABS: Glucose,Whole Blood 252 mg/dL (75-99)
[2021-01-01] MEDS: LOSARTAN 50 MG TAB PO SCH (18:02)
[2021-01-01 20:14] LABS: Glucose,Whole Blood 231 mg/dL (75-99)
[2021-01-01] MEDS: ATORVASTATIN 20 MG TAB PO SCH (22:18)
[2021-01-02] MEDS: HEPARIN SODIUM,PORCINE/PF 5,000 UNIT/0.5 ML SYRINGE SQ SCH ×3 (01:28→16:50)
--- NOTE | 2021-01-02 02:05 | XR ---
EXAMINATION TYPE: XR chest 1V DATE OF EXAM: 01/02/2021 COMPARISON: 06/29/2015 HISTORY: Weakness TECHNIQUE: Single view FINDINGS: There is no heart failure nor confluent pneumonic infiltrate. Costophrenic angles show some subtle mild blunting on the right side. There are no hilar masses. There are sternal wires. Bony tho rax is intact. IMPRESSION: There is small right pleural effusion that appears new compared to old exam. No heart ariana lure.
[2021-01-02] MEDS: D5-0.45% NACL WITH KCL 20MEQ/L 1,000 ML IV SCH ×3 (06:13→22:15)
[2021-01-02 07:16] LABS: Glucose,Whole Blood 208 mg/dL (75-99)
[2021-01-02] MEDS: LACTATED RINGERS 1,000 ML IV SCH (07:36)
[2021-01-02] MEDS: HYDROmorphone 1 MG/ML 1 ML SYRINGE IVP PRN ×4 (07:37→21:57)
[2021-01-02] MEDS: ALVIMOPAN 12 MG CAPSULE PO SCH ×2 (07:38→21:46)
[2021-01-02] MEDS: INSULIN ASPART (NovoLOG) 100 UNIT/ML VIAL SQ SCH ×4 (07:39→21:46)
[2021-01-02] MEDS: METOPROLOL TARTRATE 25 MG TAB PO SCH ×2 (07:39→21:45)
[2021-01-02] MEDS: PANTOPRAZOLE 40 MG/10 ML VIAL IVP SCH (07:40)
[2021-01-02] MEDS: SIMETHICONE 40 MG/0.6 ML DROPS 2,000 MG/30 ML BOTTLE PO SCH ×4 (07:41→21:46)
[2021-01-02 08:52] LABS: Basophils % (A) 0 %; Eosinophils # (A) 0.4 k/uL (0-0.7); Eosinophils % (A) 6 %; HCT 43.7 % (39.0-53.0); HGB 13.8 gm/dL (13.0-17.5); Lymphocytes # (A) 1.4 k/uL (1.0-4.8); Lymphocytes % (A) 20 %; MCH 29.7 pg (25.0-35.0); MCHC 31.7 g/dL (31.0-37.0); MCV 93.7 fL (80.0-100.0); Mean Platelet Volume 7.7; Monocytes # (A) 0.5 k/uL (0-1.0); Monocytes % (A) 6 %; Neutrophils # (A) 4.5 k/uL (1.3-7.7); Neutrophils % (A) 65 %; Platelet Count 213 k/uL (150-450); RBC 4.66 m/uL (4.30-5.90); RDW 13.9 % (11.5-15.5); WBC 6.9 k/uL (3.8-10.6)
[2021-01-02 11:00] LABS: African American GFR (CKD) 66.3 (60.0-200.0); Anion Gap 12.6 mmol/L (4.00-12.00); BUN/Creat Ratio 4.83 Ratio (12.00-20.00); Blood Urea Nitrogen 5.8 mg/dL (9.0-27.0); Calcium 8.6 mg/dL (8.7-10.3); Carbon Dioxide 20.4 mmol/L (21.6-31.8); Non-African American GFR(CKD) 57.2 (60.0-200.0); Potassium 4.5 mmol/L (3.5-5.5)
--- NOTE | 2021-01-02 11:09 | P.PN ---
Subjective Progress Note Date: 01/02/21 CHIEF COMPLAINT: Sigmoid colon cancer HISTORY OF PRESENT ILLNESS: Patient is status post lower anterior resection and appendectomy. Postop day #4. Patient had increase in abdominal distention and bloating last night. With severe nausea. NG tube was inserted. He is stopped having any flatus. Nausea is improving. NG tube with 700 mL of dark output. Afebrile. Elevated BP. WBC 6.9 hemoglobin 13.8 platelets 213 sodium 136 potassium 4.5 creatinine 1.2 PHYSICAL EXAM: VITAL SIGNS: Reviewed. GENERAL: Well-developed in no acute distress. HEENT: No sclera icterus. Extraocular movements grossly intact. Moist buccal mucosa. Head is atraumatic, normocephalic. ABDOMEN: Soft. Distended. Incision dressing small area of saturation yellowish color NEUROLOGIC: Alert and oriented. Cranial nerves II through XII grossly intact. ASSESSMENT: 1. 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 Signing provider agrees with the documented findings, assessment, and plan of care. Objective - Vital Signs Vital signs: Vital Signs Temp 98.1 F 01/02/21 06:57 Pulse 76 01/02/21 06:57 Resp 15 01/02/21 06:57 BP 172/97 01/02/21 06:57 Pulse Ox 97 01/02/21 06:57 Intake & Output 01/01/21 01/02/21 01/02/21 18:59 06:59 18:59 Intake Total 240 Output Total 400 150 Balance -160 -150 Intake: Oral 240 Output: Urine 400 150 Other: Voiding Method Indwelling Catheter # Voids 3 - Labs CBC & Chem 7: 01/02/21 06:45 01/02/21 06:45 Labs: Abnormal Lab Results - Last 24 Hours (Table) 01/01/21 01/01/21 01/01/21 Range/Units 06:16 12:11 17:22 Carbon Dioxide 18.6 L (21.6-31.8) mmol/L Anion Gap 14.60 H (4.00-12.00) mmol/L BUN 8.3 L (9.0-27.0) mg/dL Est GFR (CKD-EPI)AfAm 52.7 L (60.0-200.0) Est GFR (CKD-EPI)NonAf 45.5 L (60.0-200.0) BUN/Creatinine Ratio 5.69 L (12.00-20.00) Ratio Glucose 229 H (70-110) mg/dL POC Glucose (mg/dL) 205 H 252 H (75-99) mg/dL Calcium 8.6 L (8.7-10.3) mg/dL 01/01/21 01/02/21 01/02/21 Range/Units 20:12 06:45 07:14 Carbon Dioxide 20.4 L (21.6-31.8) mmol/L Anion Gap 12.60 H (4.00-12.00) mmol/L BUN 5.8 L (9.0-27.0) mg/dL Est GFR (CKD-EPI)AfAm (60.0-200.0) Est GFR (CKD-EPI)NonAf 57.2 L (60.0-200.0) BUN/Creatinine Ratio 4.83 L (12.00-20.00) Ratio Glucose 212 H (70-110) mg/dL POC Glucose (mg/dL) 231 H 208 H (75-99) mg/dL Calcium 8.6 L (8.7-10.3) mg/dL
[2021-01-02 11:56] LABS: Glucose,Whole Blood 234 mg/dL (75-99)
--- NOTE | 2021-01-02 12:32 | P.PN ---
Subjective Progress Note Date: 01/02/21 Issa Jennings is a 80 yo M with PMH of T2DM, HTN who is admitted for LAR. He was noted with rectal bleeding and on subsequent colonoscopy was found to have colorectal cancer. He is POD#1 today, overall feeling well, denies abdominal pain, nausea, vomiting. He has epidural in place today. He has not had a bowel movement. He has not yet had a chance to see Oncology. 12/31/2020 Pain controlled with epidural. Tolerating ice chips. Denies nausea vomiting. Minimal flatus. T-max 100.4, afebrile. Creatinine up to 1.35., Glucose 219. 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 Benign appendix without histopathologic abnormality. 01/01/2021 scheduled to have epidural discontinued today. Reports bloatedness, minimal passing of flatus, no bowel movement with mild nausea. Abdomen dist ended. Pain controlled. T-max 99. Labs pending. Reports he ambulated in the hallway yesterday, tolerating exertion well. Denies chest pain, palpitations or shortness of breath. Maintaining O2 sats in the high 90s on room air. 01/02/2021 NG tube inserted yesterday with improvement in abdominal distention, denies nausea. Denies passing any flatus. Epidural discontinued, pain currently controlled on current regimen. Hypertensive. Denies chest pain, palpitations or shortness of breath. Afebrile, normal WBC. Creatinine trending down, 1.2. Objective - Vital Signs Vital signs: Vital Signs Temp 98.1 F 01/02/21 06:57 Pulse 76 01/02/21 06:57 Resp 15 01/02/21 06:57 BP 172/97 01/02/21 06:57 Pulse Ox 97 01/02/21 06:57 Intake & Output 01/01/21 01/02/21 01/02/21 18:59 06:59 18:59 Intake Total 240 Output Total 400 150 Balance -160 -150 Intake: Oral 240 Output: Urine 400 150 Other: Voiding Method Indwelling Catheter # Voids 3 - Exam General: Sitting up at side of bed, NAD, vitals reviewed HEENT: normocephalic, atraumatic, mucus membranes moist Neck: supple, no thyromegaly, no JVD CV: RRR, no murmur. Pulses 2+ Lungs: Normal effort, clear throughout Abd: softer, distended, status post surgery- generalized tenderness Neuro: alert and oriented x3, no focal deficits Skin: warm and dry - Labs CBC & Chem 7: 01/02/21 06:45 01/02/21 06:45 Labs: Abnormal Lab Results - Last 24 Hours (Table) 01/01/21 01/01/21 01/01/21 Range/Units 06:16 17:22 20:12 Carbon Dioxide 18.6 L (21.6-31.8) mmol/L Anion Gap 14.60 H (4.00-12.00) mmol/L BUN 8.3 L (9.0-27.0) mg/dL Est GFR (CKD-EPI)AfAm 52.7 L (60.0-200.0) Est GFR (CKD-EPI)NonAf 45.5 L (60.0-200.0) BUN/Creatinine Ratio 5.69 L (12.00-20.00) Ratio Glucose 229 H (70-110) mg/dL POC Glucose (mg/dL) 252 H 231 H (75-99) mg/dL Calcium 8.6 L (8.7-10.3) mg/dL 01/02/21 01/02/21 01/02/21 Range/Units 06:45 07:14 11:55 Carbon Dioxide 20.4 L (21.6-31.8) mmol/L Anion Gap 12.60 H (4.00-12.00) mmol/L BUN 5.8 L (9.0-27.0) mg/dL Est GFR (CKD-EPI)AfAm (60.0-200.0) Est GFR (CKD-EPI)NonAf 57.2 L (60.0-200.0) BUN/Creatinine Ratio 4.83 L (12.00-20.00) Ratio Glucose 212 H (70-110) mg/dL POC Glucose (mg/dL) 208 H 234 H (75-99) mg/dL Calcium 8.6 L (8.7-10.3) mg/dL Assessment and Plan Assessment: Colorectal cancer status post LAR and appendectomy. Hypertension Diabetes mellitus type 2 Plan: Continue on current medication regime ,monitoring and symptomatic treatment. Norvasc ordered, close monitoring of blood pressure..Decompression via NG tube/Pain management as per surgery. IV fluid hydration. Increase ambulation as tolerated. Aggressive pulmonary toileting with incentive spirometer reinforced. The impression and plan of care has been dictated as directed. : I performed a history and examination of this patient, discussed the same with the dictator. I agree with the dictator's note ,documented as a scribe. Any additional findings or plans will be noted.
[2021-01-02] MEDS: amLODIPine 5 MG TAB NG-TUBE SCH (13:31)
[2021-01-02 15:07] VITALS: BMI 33.0
[2021-01-02] MEDS: LOSARTAN 50 MG TAB PO SCH (16:50)
[2021-01-02] MEDS: METOCLOPRAMIDE 5 MG/ML 2 ML VIAL IVP SCH ×2 (16:50→17:42)
[2021-01-02 17:15] LABS: Glucose,Whole Blood 203 mg/dL (75-99)
[2021-01-02 20:45] LABS: Glucose,Whole Blood 214 mg/dL (75-99)
[2021-01-02] MEDS: ATORVASTATIN 20 MG TAB PO SCH (21:46)
[2021-01-03] MEDS: HEPARIN SODIUM,PORCINE/PF 5,000 UNIT/0.5 ML SYRINGE SQ SCH ×3 (00:16→17:18)
[2021-01-03] MEDS: METOCLOPRAMIDE 5 MG/ML 2 ML VIAL IVP SCH ×4 (00:16→17:51)
[2021-01-03] MEDS: D5-0.45% NACL WITH KCL 20MEQ/L 1,000 ML IV SCH ×2 (02:57→13:20)
[2021-01-03] MEDS: HYDROmorphone 1 MG/ML 1 ML SYRINGE IVP PRN ×3 (06:09→21:20)
[2021-01-03 06:54] LABS: Glucose,Whole Blood 246 mg/dL (75-99)
[2021-01-03] MEDS: LACTATED RINGERS 1,000 ML IV SCH (07:14)
[2021-01-03] MEDS: INSULIN ASPART (NovoLOG) 100 UNIT/ML VIAL SQ SCH ×5 (07:26→21:21)
[2021-01-03] MEDS: amLODIPine 5 MG TAB NG-TUBE SCH (09:04)
[2021-01-03] MEDS: METOPROLOL TARTRATE 25 MG TAB PO SCH ×2 (09:04→21:22)
[2021-01-03] MEDS: ALVIMOPAN 12 MG CAPSULE PO SCH ×2 (09:05→21:22)
[2021-01-03] MEDS: PANTOPRAZOLE 40 MG/10 ML VIAL IVP SCH (09:05)
[2021-01-03] MEDS: SIMETHICONE 40 MG/0.6 ML DROPS 2,000 MG/30 ML BOTTLE PO SCH ×4 (09:07→21:22)
--- NOTE | 2021-01-03 11:11 | P.PN ---
Progress Note - Text Progress Note Date: 01/03/21 Patient feels better today. He states he had a bowel movement. On exam her vital signs are stable. Abdomen soft. Incision is clean dry intact. Resolving ileus. Patient will have nasogastric tube removed today.
[2021-01-03 11:38] LABS: Glucose,Whole Blood 248 mg/dL (75-99)
[2021-01-03] MEDS: SODIUM CHLORIDE 0.9% 1,000 ML IV SCH ×2 (13:29→21:21)
[2021-01-03 17:12] LABS: Glucose,Whole Blood 183 mg/dL (75-99)
[2021-01-03] MEDS: LOSARTAN 50 MG TAB PO SCH (17:18)
[2021-01-03] MEDS: HYDROcodone/APAP 5-325MG 1 EACH TAB PO PRN (17:20)
[2021-01-03 20:21] LABS: Glucose,Whole Blood 179 mg/dL (75-99)
[2021-01-03] MEDS: ATORVASTATIN 20 MG TAB PO SCH (21:22)
--- NOTE | 2021-01-03 21:53 | P.PN ---
Subjective This is a pleasant 80 years old -[place] male with diagnosis of sigmoid colon cancer status post lower anterior resection with appendectomy by primary surgery team with Dr. Washington. We are seeing the patient for consult. Patient today is fully awake and oriented, he is lying in bed comfortable not in distress, has normal conversation. His NG tube was withdrawn anterior and he was started on liquid diet which he tolerates well so far. Denies abdominal pain. No chest pain. No vomiting. He has normal bowel movement or gas yet. Vitals are stable. Abdomen is soft remains on IV fluids, normal saline at 125 mL/h. He had fever on admission but thus resolved now. His creatinine was elevated upon admission resolved yesterday to 1.2, with baseline 1.1-1.4. Patient is known with chronic kidney disease stage III Objective - Vital Signs Vital signs: Vital Signs Temp 97.9 F 01/03/21 11:19 Pulse 67 01/03/21 11:19 Resp 16 01/03/21 11:19 BP 150/81 01/03/21 11:19 Pulse Ox 97 01/03/21 11:19 Intake & Output 01/02/21 01/03/21 01/03/21 18:59 06:59 18:59 Intake Total 1500 Output Total 600 1000 400 Balance -600 500 -400 Weight 90 kg Intake: Intake, IV Titration 1500 Amount D5-0.45% NaCl with KCl 1500 20Meq/l 1,000 ml @ 125 mls/hr IV .Q8H [facility] Rx#: [id number] Output: Gastric Drainage 600 1000 Urine 400 Other: Voiding Method Urinal Urinal # Voids 3 # Bowel Movements 1 - Exam -GENERAL: The patient is alert and oriented x3, not in any acute distress. Obese HEENT: Pupils are round and equally reacting to light. EOMI. No scleral icterus. No conjunctival pallor. Normocephalic, atraumatic. No pharyngeal erythema. No thyromegaly. CARDIOVASCULAR: S1 and S2 present. No murmurs, rubs, or gallops. PULMONARY: Chest is clear to auscultation, no wheezing or crackles. -ABDOMEN: Soft, nontender, nondistended, normoactive bowel sounds. No palpable organomegaly. The colon was cleaned with a dressing, rest of exam is deferred to surgery team MUSCULOSKELETAL: No joint swelling or deformity. EXTREMITIES: No cyanosis, clubbing, or pedal edema. NEUROLOGICAL: Gross neurological examination did not reveal any focal deficits. SKIN: No rashes. no petechiae. 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 Patient on liquid diet. Advance as tolerated per surgery team. Patient is controlled. Monitor electrolytes and creatinine. Keep the patient off his Levemir 35 units, Januvia and glyburide and continue with insulin sliding scale as distal a liquid diet. Continue with hydration check BMP and magnesium tomorrow Labs and medication were reviewed.. Continue same treatment. Continue with symptomatic treatment. Resume home medication. Monitor lytes and vitals. DVT and GI prophylaxis. Further recommendations as per clinical course of the patient DVT prophylaxis: Subcutaneous heparin GI Prophylaxis: Zhengcid Thank you for consulting us, we'll follow up with the pt
[2021-01-04] MEDS: METOCLOPRAMIDE 5 MG/ML 2 ML VIAL IVP SCH ×4 (01:23→18:00)
[2021-01-04] MEDS: HEPARIN SODIUM,PORCINE/PF 5,000 UNIT/0.5 ML SYRINGE SQ SCH ×3 (01:23→16:43)
[2021-01-04] MEDS: HYDROcodone/APAP 5-325MG 1 EACH TAB PO PRN (01:29)
[2021-01-04] MEDS: ONDANSETRON 4 MG/2 ML VIAL IVP PRN ×2 (02:19→08:51)
[2021-01-04] MEDS: SODIUM CHLORIDE 0.9% 1,000 ML IV SCH ×3 (04:37→21:16)
[2021-01-04] MEDS: HYDROmorphone 1 MG/ML 1 ML SYRINGE IVP PRN ×4 (04:38→19:58)
[2021-01-04 07:05] LABS: Glucose,Whole Blood 166 mg/dL (75-99)
[2021-01-04] MEDS: LACTATED RINGERS 1,000 ML IV SCH (07:37)
[2021-01-04] MEDS: PANTOPRAZOLE 40 MG/10 ML VIAL IVP SCH (08:53)
[2021-01-04] MEDS: SIMETHICONE 40 MG/0.6 ML DROPS 2,000 MG/30 ML BOTTLE PO SCH ×4 (09:19→21:16)
[2021-01-04 09:47] LABS: Basophils % (A) 0 %; Eosinophils # (A) 0.2 k/uL (0-0.7); Eosinophils % (A) 2 %; HGB 13.3 gm/dL (13.0-17.5); Lymphocytes # (A) 0.8 k/uL (1.0-4.8); Lymphocytes % (A) 8 %; MCH 28.8 pg (25.0-35.0); MCHC 30.3 g/dL (31.0-37.0); MCV 94.9 fL (80.0-100.0); Mean Platelet Volume 8.6; Monocytes # (A) 0.5 k/uL (0-1.0); Monocytes % (A) 5 %; Neutrophils # (A) 8.4 k/uL (1.3-7.7); Neutrophils % (A) 84 %; Platelet Count 219 k/uL (150-450); RBC 4.64 m/uL (4.30-5.90)
[2021-01-04 10:16] LABS: ALT 52 U/L (4-49); AST 85 U/L (17-59); African American GFR (CKD) 71 (>60 ml/min/1.73 sqM); Albumin 3.4 g/dL (3.5-5.0); Albumin/Globulin Ratio 1.2; Alkaline Phosphatase 56 U/L (38-126); Anion Gap 8 mmol/L; Blood Urea Nitrogen 5 mg/dL (9-20); Carbon Dioxide 24 mmol/L (22-30); Chloride 104 mmol/L (98-107); Globulin 2.9 g/dL; Glucose 197 mg/dL (74-99); Non-African American GFR(CKD) 61 (>60 ml/min/1.73 sqM); Potassium 5.9 mmol/L (3.5-5.1); Sodium 136 mmol/L (137-145); Total Bilirubin 0.6 mg/dL (0.2-1.3); Total Protein 6.3 g/dL (6.3-8.2)
[2021-01-04 10:25] LABS: Magnesium 1.7 mg/dL (1.5-2.4)
[2021-01-04] MEDS: ALVIMOPAN 12 MG CAPSULE PO SCH ×2 (10:27→21:16)
[2021-01-04] MEDS: METOPROLOL TARTRATE 25 MG TAB PO SCH ×2 (10:27→21:15)
[2021-01-04] MEDS: amLODIPine 5 MG TAB NG-TUBE SCH (10:27)
[2021-01-04] MEDS: INSULIN ASPART (NovoLOG) 100 UNIT/ML VIAL SQ SCH ×4 (10:27→21:15)
--- NOTE | 2021-01-04 10:45 | P.PN ---
Progress Note - Text Progress Note Date: 01/04/21 Patient states he's had some flatus and a small bowel movement. He still has significant abdominal distention. On exam vital signs are stable. Abdomen soft. There is some distention. There is no rebound or guarding. There is mild incisional pain. Resolving ileus. Patient will remain on sips of clear liquids
[2021-01-04 10:54] LABS: African American GFR (CKD) 68.3 (60.0-200.0); Anion Gap 11.4 mmol/L (4.00-12.00); BUN/Creat Ratio 4.61 Ratio (12.00-20.00); Blood Urea Nitrogen 5.4 mg/dL (9.0-27.0); Calcium 9.1 mg/dL (8.7-10.3); Potassium 5.7 mmol/L (3.5-5.5)
[2021-01-04 12:02] LABS: Glucose,Whole Blood 185 mg/dL (75-99)
[2021-01-04] MEDS: LOSARTAN 50 MG TAB PO SCH (16:43)
[2021-01-04 17:02] LABS: Glucose,Whole Blood 178 mg/dL (75-99)
--- NOTE | 2021-01-04 20:23 | P.PN ---
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 Washington. We are seeing the patient for consult. Patient today is fully awake and oriented, he is lying in bed comfortable not in distress, has normal conversation. His NG tube was withdrawn anterior and he was started on liquid diet which he tolerates well so far. Denies abdominal pain. No chest pain. No vomiting. He has normal bowel movement or gas yet. Vitals are stable. Abdomen is soft remains on IV fluids, normal saline at 125 mL/h. He had fever on admission but thus resolved now. His creatinine was elevated upon admission resolved yesterday to 1.2, with baseline 1.1-1.4. Patient is known with chronic kidney disease stage III 01/04/2021 Patient awake and alert, today he has some abdominal distention but no significant pain and abdomen looked soft and examination with no rebound or guarding. He is hemodynamically stable and fever on admission subsided with no fever over the last 48 hours. 1.1 glucose is around 200. Has some today was elevated about 5.9. And liver enzymes mildly elevated. Surgical team are following the case closely and they kept the patient on clear liquid diet and keep monitoring including his abdominal distention. Other than that he is hemodynamically stable. His pain is controlled. He remains on normal saline at 1 25 mL/h Objective - Vital Signs Vital signs: Vital Signs Temp 98.5 F 01/04/21 11:22 Pulse 88 01/04/21 11:22 Resp 16 01/04/21 11:22 BP 138/76 01/04/21 11:22 Pulse Ox 95 01/04/21 11:22 Intake & Output 01/03/21 01/04/21 01/04/21 18:59 06:59 18:59 Intake Total 1500 Output Total 1200 200 Balance -1200 1300 Intake: Intake, IV Titration 1500 Amount Sodium Chloride 0.9% 1, 1500 000 ml @ 125 mls/hr IV . Q8H [facility] Rx#:[id number] Output: Urine 1200 200 Other: Voiding Method Urinal Urinal # Voids 2 # Bowel Movements 1 2 - Exam -GENERAL: The patient is alert and oriented x3, not in any acute distress. Obese HEENT: Pupils are round and equally reacting to light. EOMI. No scleral icterus. No conjunctival pallor. Normocephalic, atraumatic. No pharyngeal erythema. No thyromegaly. CARDIOVASCULAR: S1 and S2 present. No murmurs, rubs, or gallops. PULMONARY: Chest is clear to auscultation, no wheezing or crackles. -ABDOMEN: Soft, nontender, nondistended, normoactive bowel sounds. No palpable organomegaly. The colon was cleaned with a dressing, rest of exam is deferred to surgery team MUSCULOSKELETAL: No joint swelling or deformity. EXTREMITIES: No cyanosis, clubbing, or pedal edema. NEUROLOGICAL: Gross neurological examination did not reveal any focal deficits. SKIN: No rashes. no petechiae. - Labs CBC & Chem 7: 01/04/21 06:05 01/04/21 06:05 Labs: Abnormal Lab Results - Last 24 Hours (Table) 01/03/21 01/03/21 01/04/21 Range/Units 17:11 20:19 06:05 MCHC (31.0-37.0) g/dL Neutrophils # (1.3-7.7) k/uL Lymphocytes # (1.0-4.8) k/uL Sodium (137-145) mmol/L Potassium 5.7 H (3.5-5.5) mmol/L BUN 5.4 L (9.0-27.0) mg/dL Est GFR (CKD-EPI)NonAf 59.0 L (60.0-200.0) BUN/Creatinine Ratio 4.61 L (12.00-20.00) Ratio Glucose 196 H (70-110) mg/dL POC Glucose (mg/dL) 183 H 179 H (75-99) mg/dL AST (17-59) U/L ALT (4-49) U/L Albumin (3.5-5.0) g/dL 01/04/21 01/04/21 01/04/21 Range/Units 06:05 06:05 07:03 MCHC 30.3 L (31.0-37.0) g/dL Neutrophils # 8.4 H (1.3-7.7) k/uL Lymphocytes # 0.8 L (1.0-4.8) k/uL Sodium 136 L (137-145) mmol/L Potassium 5.9 H (3.5-5.5) mmol/L BUN 5 L (9.0-27.0) mg/dL Est GFR (CKD-EPI)NonAf (60.0-200.0) BUN/Creatinine Ratio (12.00-20.00) Ratio Glucose 197 H (70-110) mg/dL POC Glucose (mg/dL) 166 H (75-99) mg/dL AST 85 H (17-59) U/L ALT 52 H (4-49) U/L Albumin 3.4 L (3.5-5.0) g/dL 01/04/21 01/04/21 Range/Units 11:52 16:57 MCHC (31.0-37.0) g/dL Neutrophils # (1.3-7.7) k/uL Lymphocytes # (1.0-4.8) k/uL Sodium (137-145) mmol/L Potassium (3.5-5.5) mmol/L BUN (9.0-27.0) mg/dL Est GFR (CKD-EPI)NonAf (60.0-200.0) BUN/Creatinine Ratio (12.00-20.00) Ratio Glucose (70-110) mg/dL POC Glucose (mg/dL) 185 H 178 H (75-99) mg/dL AST (17-59) U/L ALT (4-49) U/L Albumin (3.5-5.0) g/dL Assessment and Plan Assessment: Sigmoid colon cancer status post lower anterior resection with appendectomy Chronic kidney disease stage III Hyperkalemia Plan: This is a pleasant 80 years old male with colon cancer status post resection. Patient on liquid diet. Advance as tolerated per surgery team. Patient pain is controlled. Recheck potassium Monitor electrolytes and creatinine. Keep the patient off his Levemir 35 units, Januvia and glyburide and continue with insulin sliding scale as distal a liquid diet. Continue with hydration check BMP and magnesium tomorrow Labs and medication were reviewed.. Continue same treatment. Continue with symptomatic treatment. Resume home medication. Monitor lytes and vitals. DVT and GI prophylaxis. Further recommendations as per clinical course of the patient DVT prophylaxis: Subcutaneous heparin GI Prophylaxis: Pepcid Thank you for consulting us, we'll follow up with the pt
[2021-01-04 20:41] LABS: Glucose,Whole Blood 160 mg/dL (75-99)
[2021-01-04] MEDS: ATORVASTATIN 20 MG TAB PO SCH (21:15)
[2021-01-05] MEDS: METOCLOPRAMIDE 5 MG/ML 2 ML VIAL IVP SCH ×5 (00:37→23:48)
[2021-01-05] MEDS: HEPARIN SODIUM,PORCINE/PF 5,000 UNIT/0.5 ML SYRINGE SQ SCH ×4 (00:37→23:48)
[2021-01-05] MEDS: LACTATED RINGERS 1,000 ML IV SCH (06:05)
[2021-01-05] MEDS: SODIUM CHLORIDE 0.9% 1,000 ML IV SCH ×2 (06:05→12:35)
[2021-01-05 07:34] LABS: Glucose,Whole Blood 144 mg/dL (75-99)
[2021-01-05] MEDS: METOPROLOL TARTRATE 25 MG TAB PO SCH ×2 (07:40→20:34)
[2021-01-05] MEDS: PANTOPRAZOLE 40 MG/10 ML VIAL IVP SCH (07:41)
[2021-01-05] MEDS: SIMETHICONE 40 MG/0.6 ML DROPS 2,000 MG/30 ML BOTTLE PO SCH ×4 (07:41→20:35)
[2021-01-05] MEDS: ALVIMOPAN 12 MG CAPSULE PO SCH (07:41)
[2021-01-05] MEDS: amLODIPine 5 MG TAB NG-TUBE SCH (07:41)
[2021-01-05] MEDS: INSULIN ASPART (NovoLOG) 100 UNIT/ML VIAL SQ SCH ×4 (08:44→20:35)
[2021-01-05] MEDS: HYDROmorphone 1 MG/ML 1 ML SYRINGE IVP PRN ×4 (08:47→20:39)
--- NOTE | 2021-01-05 11:36 | P.PN ---
Subjective Progress Note Date: 01/05/21 Issa Jennings is a 80 yo M with PMH of T2DM, HTN who is admitted for LAR. He was noted with rectal bleeding and on subsequent colonoscopy was found to have colorectal cancer. He is POD#1 today, overall feeling well, denies abdominal pain, nausea, vomiting. He has epidural in place today. He has not had a bowel movement. He has not yet had a chance to see Oncology. 12/31/2020 Pain controlled with epidural. Tolerating ice chips. Denies nausea vomiting. Minimal flatus. T-max 100.4, afebrile. Creatinine up to 1.35., Glucose 219. 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 Benign appendix without histopathologic abnormality. 01/01/2021 scheduled to have epidural discontinued today. Reports bloatedness, minimal passing of flatus, no bowel movement with mild nausea. Abdomen dist ended. Pain controlled. T-max 99. Labs pending. Reports he ambulated in the hallway yesterday, tolerating exertion well. Denies chest pain, palpitations or shortness of breath. Maintaining O2 sats in the high 90s on room air. 01/02/2021 NG tube inserted yesterday with improvement in abdominal distention, denies nausea. Denies passing any flatus. Epidural discontinued, pain currently controlled on current regimen. Hypertensive. Denies chest pain, palpitations or shortness of breath. Afebrile, normal WBC. Creatinine trending down, 1.2. 01/05/2021 tolerating consistent carb clear liquid diet with no nausea. Blood sugars controlled. Most recent creatinine continues trending down, 1.14. Abdomen distended, reports less bloating. Positive loose bowel movement. Pain controlled. T-max 99.2. Objective - Vital Signs Vital signs: Vital Signs Temp 98.0 F 01/05/21 05:20 Pulse 90 01/05/21 05:20 Resp 16 01/05/21 05:20 BP 158/81 01/05/21 05:20 Pulse Ox 91 L 01/05/21 05:20 Intake & Output 01/04/21 01/05/21 01/05/21 18:59 06:59 18:59 Intake Total 1200 1000 Balance 1200 1000 Intake: Intake, IV Titration 1200 1000 Amount Sodium Chloride 0.9% 1, 1200 1000 000 ml @ 125 mls/hr IV . Q8H [facility] Rx#:[id number] Other: Voiding Method Urinal Toilet Urinal # Bowel Movements 3 1 - Exam General: Sitting up at side of bed, NAD, vitals reviewed HEENT: normocephalic, atraumatic, mucus membranes moist Neck: supple, no thyromegaly, no JVD CV: RRR, no murmur. Pulses 2+ Lungs: Normal effort, clear throughout Abd: softer, distended, status post surgery, positive bowel sounds Neuro: alert and oriented x3, no focal deficits Skin: warm and dry - Labs CBC & Chem 7: 01/04/21 06:05 01/04/21 20:31 Labs: Abnormal Lab Results - Last 24 Hours (Table) 01/04/21 01/04/21 01/04/21 Range/Units 11:52 16:57 20:38 POC Glucose (mg/dL) 185 H 178 H 160 H (75-99) mg/dL 01/05/21 Range/Units 07:33 POC Glucose (mg/dL) 144 H (75-99) mg/dL Assessment and Plan Assessment: Colorectal cancer status post LAR and appendectomy. Hypertension Diabetes mellitus type 2 Plan: Continue on current medication regime ,monitoring and symptomatic treatment. Maintain IV fluid hydration. Increase ambulation as tolerated. Continue with aggressive pulmonary toileting with incentive spirometer reinforced. Diet advancement/pain management as per surgery. The impression and plan of care has been dictated as directed. : I performed a history and examination of this patient, discussed the same with the dictator. I agree with the dictator's note ,documented as a scribe. Any additional findings or plans will be noted.
[2021-01-05 11:37] LABS: Glucose,Whole Blood 133 mg/dL (75-99)
--- NOTE | 2021-01-05 14:15 | P.PN ---
Subjective Progress Note Date: 01/05/21 CHIEF COMPLAINT: Sigmoid colon cancer HISTORY OF PRESENT ILLNESS: Patient is status post lower anterior resection and appendectomy. Postop day #7. Patient is having flatus and BM's. NG tube was removed over the weekend. He is currently on a liquid diet. He reports his pain is controlled. Denies any nausea or vomiting. He reports feeling distended. Afebrile PHYSICAL EXAM: VITAL SIGNS: Reviewed. GENERAL: Well-developed in no acute distress. HEENT: No sclera icterus. Extraocular movements grossly intact. Moist buccal mucosa. Head is atraumatic, normocephalic. ABDOMEN: Soft. Distended. Incisional dressing clean dry and intact NEUROLOGIC: Alert and oriented. Cranial nerves II through XII grossly intact. ASSESSMENT: 1. Sigmoid colon cancer status post lower anterior resection and appendectomy PLAN: -Continue clear liquid diet -Continue pain medication as needed -Continue antiemetics as needed -continue IV fluids -Encouraged patient to use incentive spirometer -Encouraged patient to increase activity -DVT prophylaxis subcu heparin and GI prophylaxis protonix Physician Faculty Dean note has been reviewed by physician. Signing provider agrees with the documented findings, assessment, and plan of care. Objective - Vital Signs Vital signs: Vital Signs Temp 97.9 F 01/05/21 11:41 Pulse 76 01/05/21 11:41 Resp 17 01/05/21 11:41 BP 126/56 01/05/21 11:41 Pulse Ox 98 01/05/21 11:41 Intake & Output 01/04/21 01/05/21 01/05/21 18:59 06:59 18:59 Intake Total 1200 1000 Balance 1200 1000 Weight 90 kg Intake: Intake, IV Titration 1200 1000 Amount Sodium Chloride 0.9% 1, 1200 1000 000 ml @ 125 mls/hr IV . Q8H [facility] Rx#:[id number] Other: Voiding Method Urinal Toilet Urinal # Bowel Movements 3 1 - Labs CBC & Chem 7: 01/04/21 06:05 01/04/21 20:31 Labs: Abnormal Lab Results - Last 24 Hours (Table) 01/04/21 01/04/21 01/05/21 Range/Units 16:57 20:38 07:33 POC Glucose (mg/dL) 178 H 160 H 144 H (75-99) mg/dL 01/05/21 Range/Units 11:36 POC Glucose (mg/dL) 133 H (75-99) mg/dL
--- NOTE | 2021-01-05 14:27 | CDI ---
Documentation Clarification Form Date: 01/05/2021 02:04:57 PM From: Deann Le RN, CCDS Admit Date: 12/29/2020 08:22:00 AM Patient Name: sIsa Jennings Visit Number: [id number] Discharge Date: ATTENTION: The Clinical Documentation Specialists (CDI) and [facility] Coding Staff appreciate your assistance in clarifying documentation. Please respond to the clarification below the line at the bottom and electronically sign. The CDI & [facility] Coding staff will review the response and follow-up if needed. Please note: Queries are made part of the Legal Health Record. If you have any questions, please contact the author of this message via ITS. Dr. Daryl Womack Ileus is documented 01/03 & 01/04, Surgical progress note and patient had low anterior resection, 12/29. Additional clarification is requested regarding the relationship, if any, that exists between the diagnosis and the procedure. Patients Admitting Diagnosis: Sigmoid colon cancer Post-Operative Diagnosis: Sigmoid colon cancer Procedure performed: Low anterior resection History/Risk Factors: 80-year-old male was found to have sigmoid colon cancer. Medical history: Prostate cancer, colon cancer, CKD 3, HLD and HTN. H&P, 12/29. Clinical Indicators: 01/02 Surgical Progress note: Post op day #4. Patient had increase in abdominal distention and bloating last night. With severe nausea. NG tube was inserted. He is stopped having any flatus. Nausea is improving. NG tube with 700ml of dark outpt. 01/02 Medicine Progress note: NG tube inserted yesterday with improvement of abdominal distention denies nausea and passing any flatus. Treatment: 01/01 NG tube for decompression. 01/01 NPO except ice chips, gum and medications. What relationship, if any, exists between the diagnosis of Ileus and the procedure: [ ] Ileus is a complication of surgical procedure [x ] Ileus is an expected outcome of the surgical procedure [ ] Ileus is related to patients co-morbid condition(s) of please insert comorbid conditions & not a complication of the procedure [ ] Other please specify ____ [ ] Unable to determine (Template Last Revised: May 2020) ARSHD
[2021-01-05 17:19] LABS: Glucose,Whole Blood 104 mg/dL (75-99)
[2021-01-05] MEDS: LOSARTAN 50 MG TAB PO SCH (17:47)
[2021-01-05 20:14] LABS: Glucose,Whole Blood 132 mg/dL (75-99)
[2021-01-05] MEDS: ATORVASTATIN 20 MG TAB PO SCH (20:34)
[2021-01-06] MEDS: SODIUM CHLORIDE 0.9% 1,000 ML IV SCH (00:28)
[2021-01-06] MEDS: METOCLOPRAMIDE 5 MG/ML 2 ML VIAL IVP SCH ×2 (05:54→13:13)
[2021-01-06 07:23] LABS: Glucose,Whole Blood 140 mg/dL (75-99)
[2021-01-06] MEDS: PANTOPRAZOLE 40 MG/10 ML VIAL IVP SCH (07:23)
[2021-01-06] MEDS: HEPARIN SODIUM,PORCINE/PF 5,000 UNIT/0.5 ML SYRINGE SQ SCH (07:23)
[2021-01-06] MEDS: LACTATED RINGERS 1,000 ML IV SCH (07:23)
[2021-01-06] MEDS: SIMETHICONE 40 MG/0.6 ML DROPS 2,000 MG/30 ML BOTTLE PO SCH ×2 (07:24→13:14)
[2021-01-06] MEDS: amLODIPine 5 MG TAB NG-TUBE SCH (07:24)
[2021-01-06] MEDS: METOPROLOL TARTRATE 25 MG TAB PO SCH (07:24)
[2021-01-06] MEDS: INSULIN ASPART (NovoLOG) 100 UNIT/ML VIAL SQ SCH ×2 (08:37→13:14)
[2021-01-06] MEDS: HYDROcodone/APAP 5-325MG 1 EACH TAB PO PRN (10:58)
--- NOTE | 2021-01-06 11:15 | P.PN ---
Subjective Progress Note Date: 01/06/21 Issa Jennings is a 80 yo M with PMH of T2DM, HTN who is admitted for LAR. He was noted with rectal bleeding and on subsequent colonoscopy was found to have colorectal cancer. He is POD#1 today, overall feeling well, denies abdominal pain, nausea, vomiting. He has epidural in place today. He has not had a bowel movement. He has not yet had a chance to see Oncology. 12/31/2020 Pain controlled with epidural. Tolerating ice chips. Denies nausea vomiting. Minimal flatus. T-max 100.4, afebrile. Creatinine up to 1.35., Glucose 219. 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 Benign appendix without histopathologic abnormality. 01/01/2021 scheduled to have epidural discontinued today. Reports bloatedness, minimal passing of flatus, no bowel movement with mild nausea. Abdomen dist ended. Pain controlled. T-max 99. Labs pending. Reports he ambulated in the hallway yesterday, tolerating exertion well. Denies chest pain, palpitations or shortness of breath. Maintaining O2 sats in the high 90s on room air. 01/02/2021 NG tube inserted yesterday with improvement in abdominal distention, denies nausea. Denies passing any flatus. Epidural discontinued, pain currently controlled on current regimen. Hypertensive. Denies chest pain, palpitations or shortness of breath. Afebrile, normal WBC. Creatinine trending down, 1.2. 01/05/2021 tolerating consistent carb clear liquid diet with no nausea. Blood sugars controlled. Most recent creatinine continues trending down, 1.14. Abdomen distended, reports less bloating. Positive loose bowel movement. Pain controlled. T-max 99.2. 01/06/2021 diet advanced to full liquids yesterday, tolerating well. Blood sugars controlled Abdomen less tense, reports positive bowel movement 2 firming up. Pain controlled, tolerating increase in exertion/ambulation. Afebrile. Denies lightheadedness dizziness or focal deficits. Denies chest pain, palpitations or shortness of breath. Objective - Vital Signs Vital signs: Vital Signs Temp 98.4 F 01/06/21 04:57 Pulse 91 01/06/21 04:57 Resp 18 01/06/21 04:57 BP 161/91 01/06/21 04:57 Pulse Ox 99 01/06/21 04:57 Intake & Output 01/05/21 01/06/21 01/06/21 18:59 06:59 18:59 Intake Total 1740 500 240 Balance 1740 500 240 Weight 90 kg Intake: Intake, IV Titration 1500 400 Amount Sodium Chloride 0.9% 1, 1500 400 000 ml @ 50 mls/hr IV . Q20H [facility] Rx#:[id number] Oral 240 100 240 Other: Voiding Method Toilet Urinal # Voids 4 2 # Bowel Movements 1 - Exam General: Sitting up at side of bed, NAD, vitals reviewed HEENT: normocephalic, atraumatic, mucus membranes moist Neck: supple, no JVD CV: RRR, no murmur. Pulses 2+ Lungs: Normal effort, clear throughout Abd: softer, nondistended, status post surgery, positive bowel sounds Neuro: alert and oriented x3, no focal deficits Skin: warm and dry - Labs CBC & Chem 7: 01/04/21 06:05 01/04/21 20:31 Labs: Abnormal Lab Results - Last 24 Hours (Table) 01/05/21 01/05/21 01/05/21 Range/Units 11:36 17:17 20:10 POC Glucose (mg/dL) 133 H 104 H 132 H (75-99) mg/dL 01/06/21 Range/Units 07:21 POC Glucose (mg/dL) 140 H (75-99) mg/dL Assessment and Plan Assessment: Colorectal cancer status post LAR and appendectomy. Hypertension Diabetes mellitus type 2 Plan: Continue on current medication regime ,monitoring and symptomatic treatment. Aggressive pulmonary toileting with incentive spirometer reinforced. Diet advancement/pain management as per surgery. Continue increasing ambulation as tolerated. The impression and plan of care has been dictated as directed. : I performed a history and examination of this patient, discussed the same with the dictator. I agree with the dictator's note ,documented as a scribe. Any additional findings or plans will be noted.
[2021-01-06 12:06] LABS: Glucose,Whole Blood 195 mg/dL (75-99)
[2021-01-06 12:19] VITALS: BP 176/80; PULSE 89; RESP 17; TEMP 97.9
[2021-01-06 12:59] LABS: Basophils % (A) 0 %; Eosinophils # (A) 0.5 k/uL (0-0.7); Eosinophils % (A) 6 %; HCT 42.5 % (39.0-53.0); HGB 13.4 gm/dL (13.0-17.5); Hypochromasia Slight; Lymphocytes # (A) 1.2 k/uL (1.0-4.8); Lymphocytes % (A) 14 %; MCHC 31.6 g/dL (31.0-37.0); MCV 94.9 fL (80.0-100.0); Monocytes # (A) 0.5 k/uL (0-1.0); Monocytes % (A) 6 %; Neutrophils # (A) 5.6 k/uL (1.3-7.7); Neutrophils % (A) 70 %; Platelet Count 140 k/uL (150-450); RBC 4.48 m/uL (4.30-5.90); RDW 13.9 % (11.5-15.5)
[2021-01-06 13:09] LABS: African American GFR (CKD) 86 (>60 ml/min/1.73 sqM); Anion Gap 5 mmol/L; Blood Urea Nitrogen 5 mg/dL (9-20); Calcium 8.7 mg/dL (8.4-10.2); Carbon Dioxide 24 mmol/L (22-30); Chloride 108 mmol/L (98-107); Glucose 187 mg/dL (74-99); Non-African American GFR(CKD) 75 (>60 ml/min/1.73 sqM); Sodium 137 mmol/L (137-145)
[2021-01-06 13:13] LABS: Potassium 4.9 mmol/L (3.5-5.1)
--- NOTE | 2021-01-06 14:33 | P.DS ---
Providers Date of admission: 12/29/20 08:22 Expected date of discharge: 01/06/21 Attending physician: Daryl Womack Consults: 12/29/20 13:01 Consult Physician Routine Consulting Provider: Zachery Pruett Consult Reason/Comments: Medical management Do you want consulting provider notified?: Yes Primary care physician: Emely Gutierrez Hospital Course: Discharge diagnosis 1. Sigmoid colon cancer status post lower anterior resection and appendectomy Hospital course This is a 80-year-old male with sigmoid colon cancer. He is status post lower anterior resection and appendectomy. Patient tolerated surgery well. He is tolerating full liquid diet. He reports that his pain is controlled. He has been up and ambulating. He is having flatus and bowel movements. He is afe brile. He is stable for discharge. Please refer to chart for any further details. Physician Tester Sound note has been reviewed by physician. Signing provider agrees with the documented findings, assessment, and plan of care. Patient Condition at Discharge: Stable Plan - Discharge Summary Discharge Rx Participant: Yes New Discharge Prescriptions: New Simethicone 40 mg/0.6 ml Drops [Mylicon Drops] 40 mg PO QID ml Docusate [Colace] 100 mg PO BID #30 capsule HYDROcodone/APAP 5-325MG [[place] 5-325] 1 tab PO Q4HR PRN 3 Days #18 tab PRN Reason: Pain Continue Montelukast [Singulair] 10 mg PO QAM Atorvastatin [Lipitor] 20 mg PO HS #30 tab Aspirin EC [Ecotrin Low Dose] 81 mg PO DAILY #60 tablet. Metoprolol Tartrate [Lopressor] 25 mg PO HS Ergocalciferol [Vitamin D2 (1250 Mcg = 67399 Iu)] 1,250 mcg PO MO hydroCHLOROthiazide [Hydrodiuril] 25 mg PO DAILY Metoprolol Tartrate [Lopressor] 50 mg PO QAM Losartan [Cozaar] 100 mg PO AC-SUPPER No Action sitaGLIPtin [Januvia] 100 mg PO DAILY #30 tab glyBURIDE [Diabeta] 5 mg PO AC-BID Insulin Detemir [Levemir Flextouch Pen] 35 units SQ HS Discharge Medication List Montelukast [Singulair] 10 mg PO QAM 11/26/14 [History] Atorvastatin [Lipitor] 20 mg PO HS #30 tab 12/14/14 [Rx] Aspirin EC [Ecotrin Low Dose] 81 mg PO DAILY #60 tablet. 12/19/14 [Rx] sitaGLIPtin [Januvia] 100 mg PO DAILY #30 tab 07/02/15 [Rx] Ergocalciferol [Vitamin D2 (1250 Mcg = 55868 Iu)] 1,250 mcg PO MO 12/10/20 [History] Insulin Detemir [Levemir Flextouch Pen] 35 units SQ HS 12/10/20 [History] Metoprolol Tartrate [Lopressor] 25 mg PO HS 12/10/20 [History] Metoprolol Tartrate [Lopressor] 50 mg PO QAM 12/10/20 [History] glyBURIDE [Diabeta] 5 mg PO AC-BID 12/10/20 [History] hydroCHLOROthiazide [Hydrodiuril] 25 mg PO DAILY 12/10/20 [History] Losartan [Cozaar] 100 mg PO AC-SUPPER 12/24/20 [History] Docusate [Colace] 100 mg PO BID #30 capsule 01/06/21 [Rx] HYDROcodone/APAP 5-325MG [[place] 5-325] 1 tab PO Q4HR PRN 3 Days #18 tab 01/06/21 [Rx] Simethicone 40 mg/0.6 ml Drops [Mylicon Drops] 40 mg PO QID ml 01/06/21 [Rx] Follow up Appointment(s)/Referral(s): Zachery Pruett MD [STAFF PHYSICIAN] - 1 Week Daryl Womack MD [STAFF PHYSICIAN] - 1 Week Activity/Diet/Wound Care/Special Instructions: Medicine service to complete discharge med rec No driving while taking [place] No lifting over 10 pounds You may shower. No soaking or tub baths for 2 weeks Very light activity until you are reevaluated at your follow up appointment with your surgeon Continue full liquid diet for the next 24 hours and then titrate diet as tolerated Discharge Disposition: HOME SELF-CARE
[2021-01-06] MEDS ORDERED: amLODIPine 5 MG TAB PO SCH (21:00)
== END 2021-01-06 16:31 | disposition home or self-care (01) | DRG 330 ==
LOC: 2ORMAIN 08:22 → 5NMEDONC 15:45
PROVIDERS: ADMIT Surgery; ATTEND Surgery
PROC: 0DBP0ZZ Excision of Rectum, Open Approach (ICD-10-PCS; 2020-12-29)
PROC: 0DTJ0ZZ Resection of Appendix, Open Approach (ICD-10-PCS; principal; 2020-12-29 10:10)
PROC: 0DBN0ZZ Excision of Sigmoid Colon, Open Approach (ICD-10-PCS; 2020-12-29 10:10)
DX: C18.7 Malignant neoplasm of sigmoid colon (principal); K56.7 Ileus, unspecified; K62.5 Hemorrhage of anus and rectum; E78.5 Hyperlipidemia, unspecified; E87.5 Hyperkalemia; E11.22 Type 2 diabetes mellitus with diabetic chronic kidney disease; I12.9 Hypertensive chronic kidney disease with stage 1 through stage 4 chronic kidney disease, or unspecified chronic kidney disease; N18.30 Chronic kidney disease, stage 3 unspecified; I25.10 Atherosclerotic heart disease of native coronary artery without angina pectoris; I25.2 Old myocardial infarction; J45.909 Unspecified asthma, uncomplicated; Z79.4 Long term (current) use of insulin; Z79.82 Long term (current) use of aspirin; Z79.899 Other long term (current) drug therapy; Z80.0 Family history of malignant neoplasm of digestive organs; Z85.46 Personal history of malignant neoplasm of prostate; Z87.891 Personal history of nicotine dependence; Z95.1 Presence of aortocoronary bypass graft; Z95.5 Presence of coronary angioplasty implant and graft
CPT/HCPCS: 71045; 80048; 80053; 83735; 84132; 85025; 86850; 86900; 86901; 87635; 88302; 88309

== ENCOUNTER 2024-01-23 17:23 | Emergency (ER) | payer BC, OTHER ==
[2024-01-23 17:35] LABS: Glucose,Whole Blood 79 mg/dL (70-110)
--- NOTE | 2024-01-23 17:52 | ED ---
Altered Mental Status HPI - General Source: patient, family, RN notes reviewed Mode of arrival: ambulatory Limitations: no limitations - History of Present Illness MD Complaint: altered mental status Onset/Timin -: week(s) Context: diabetes Associated Symptoms: difficulty walking <Rory Armas - Last Filed: 01/23/24 17:50> <Son Patton - Last Filed: 01/23/24 21:09> - General Chief Complaint: Altered Mental Status Stated Complaint: Fall-L hip injury,AMS Time Seen by Provider: 01/23/24 17:41 - History of Present Illness Initial Comments: Quick note: This is an 83-year-old male with history of insulin-dependent diabetes presenting presenting with for altered mental status and frequent falling at home x 2 weeks. states patient is not acting like his usual self and has been more confused than usual. States he is also falling at home at least once every other day. States patient was much more active and sharp, retiring from work only last year. (Rory Armas) 83-year-old male presents for evaluation of weakness and some confusion which has been intermittent over the past several weeks. There is been several falls with only minor injury mild left hip pain. No head or neck trauma. Patient feels fine at the time my evaluation and is alert and oriented. There is concern that the blood sugar may be dropping low as the patient has been eating a very low carbohydrate healthy diet and continues to say take the same doses of diabetic medications including insulin. (Son Patton) - Related Data Home Medications Medication Instructions Recorded Confirmed Montelukast [Singulair] 10 mg PO QAM 11/26/14 12/24/20 Ergocalciferol [Vitamin D2 (1250 1,250 mcg PO MO 12/10/20 12/24/20 Mcg = 48808 Iu)] Metoprolol Tartrate [Lopressor] 25 mg PO HS 12/10/20 12/24/20 Metoprolol Tartrate [Lopressor] 50 mg PO QAM 12/10/20 12/24/20 hydroCHLOROthiazide [Hydrodiuril] 25 mg PO DAILY 12/10/20 12/24/20 Losartan [Cozaar] 100 mg PO AC-SUPPER 12/24/20 12/24/20 Previous Rx's Medication Instructions Recorded Atorvastatin [Lipitor] 20 mg PO HS #30 tab 12/14/14 Aspirin EC [Ecotrin Low Dose] 81 mg PO DAILY #60 tablet. 12/19/14 Docusate [Colace] 100 mg PO BID #30 capsule 01/06/21 HYDROcodone/APAP 5-325MG [[place] 1 tab PO Q4HR PRN 3 Days #18 tab 01/06/21 5-325] Insulin Detemir [Levemir Flextouch 30 units SQ HS #0 01/06/21 Pen] Simethicone 40 mg/0.6 ml Drops 40 mg PO QID ml 01/06/21 [Mylicon Drops] Allergies Allergy/AdvReac Type Severity Reaction Status Date / Time bee venom protein (honey bee) Allergy Rash/Hives Verified 01/23/24 17:37 tree nut [Nut] Allergy Rash/Hives Verified 01/23/24 17:37 Review of Systems ROS Other: All systems not noted in ROS Statement are negative. <Rory Armas - Last Filed: 01/23/24 17:50> ROS Other: All systems not noted in ROS Statement are negative. <Son Patton - Last Filed: 01/23/24 21:09> ROS Statement: Those systems with pertinent positive or pertinent negative responses have been documented in the HPI. Past Medical History Past Medical History: Asthma, Coronary Artery Disease (CAD), Cancer, Diabetes Mellitus, Hyperlipidemia, Hypertension, Myocardial Infarction (CT), Osteoarthritis (OA), Prostate Disorder Additional Past Medical History / Comment(s): PROSTATE CANCER. colon cancer, Last Myocardial Infarction Date:: 06/30/2015 History of Any Multi-Drug Resistant Organisms: None Reported Past Surgical History: Coronary Bypass/CABG, Heart Catheterization, Heart Catheterization With Stent, Prostate Surgery Additional Past Surgical History / Comment(s): TRIPLE VESSEL CABG-06/30/2015, COLONOSCOPY, two cardiac stents Past Anesthesia/Blood Transfusion Reactions: No Reported Reaction Date of Last Stent Placement:: 2004 Past Psychological History: No Psychological Hx Reported Smoking Status: Former smoker - Past Family History Father Family Medical History: CVA/TIA Mother Family Medical History: Cancer Additional Family Medical History / Comment(s): COLON CANCER <Rory Armas - Last Filed: 01/23/24 17:50> General Exam Limitations: no limitations <Rory Armas - Last Filed: 01/23/24 17:50> General appearance: alert, in no apparent distress Head exam: Present: atraumatic, normocephalic Eye exam: Present: normal appearance, PERRL ENT exam: Present: normal exam Neck exam: Present: normal inspection. Absent: tenderness, meningismus Respiratory exam: Present: normal lung sounds bilaterally. Absent: respiratory distress, wheezes Cardiovascular Exam: Present: regular rate, normal rhythm GI/Abdominal exam: Present: soft. Absent: distended, tenderness Extremities exam: Present: normal inspection Neurological exam: Present: alert, oriented X3, CN II-XII intact. Absent: motor sensory deficit Psychiatric exam: Present: normal affect, normal mood Skin exam: Present: warm, dry, intact. Absent: cyanosis, diaphoretic <Son Patton - Last Filed: 01/23/24 21:09> - General Exam Comments Initial Comments: Visual Physical Exam Vital signs reviewed General: Well-appearing, nontoxic, no acute distress. Head: Normocephalic, atraumatic Eyes: PERRLA, EOMI ENT: Airway patent Chest: Nonlabored breathing Skin: No visual rash, normal skin tone Neuro: Alert and oriented 4 Musculoskeletal: No gross abnormalities (Rory Armas) Course Vital Signs 01/23/24 01/23/24 17:32 19:58 Temperature 97.6 F 98.4 F Pulse Rate 80 70 Respiratory 16 17 Rate Blood Pressure 165/78 149/74 O2 Sat by Pulse 96 99 Oximetry Medical Decision Making <Rory Armas - Last Filed: 01/23/24 17:50> - Lab Data Result diagrams: 01/23/24 18:03 01/23/24 18:03 <Son Patton - Last Filed: 01/23/24 21:09> - Medical Decision Making I completed the quick note portion of this chart signed SAMANTHA Levine (Rory Armas) Was pt. sent in by a medical professional or institution (MARILIA Wesley, EXPLOSIVES MIXER OPERATOR, urgent care, hospital, or care home...) When possible be specific @ -No Did you speak to anyone other than the patient for history (EMS, parent, family, police, friend...)? What history was obtained from this source @ -No Did you review nursing and triage notes (agree or disagree)? Why? @ -I reviewed and agree with nursing and triage notes Were old charts reviewed (outside hosp., previous admission, EMS record, old EKG, old radiological studies, urgent care reports/EKG's, care home records)? Report findings @ -No old charts were reviewed Differential Altered Mental Status: Hypoglycemia, DKA, hypercapnia, ETOH, overdose, CO poisoning, trauma, myxedema coma, HTN encephalopathy, infection, encephalitis, psychosis, intercranial hemorrhage, hepatic encephalopathy, meningitis, CVA, this is not meant to be an all-inclusive list EKG interpreted by me (3pts min.). @Sinus rhythm rate of 80, IA interval 160, QRS duration 109, QTc [address] segment elevation. X-rays interpreted by me (1pt min.). @Chest x-ray and x-ray of the left hip are negative CT interpreted by me (1pt min.). @ -None done U/S interpreted by me (1pt. min.). @ -None done What testing was considered but not performed or refused? (CT, X-rays, U/S, labs)? Why? @ -None What meds were considered but not given or refused? Why? @ -None Did you discuss the management of the patient with other professionals (professionals i.e. , PA, EXPLOSIVES MIXER OPERATOR, lab, RT, psych nurse, social media executive, [employer] reverse winder, teacher, alumni relations officer, outpatient case manager)? Give summary @ -No Was smoking cessation discussed for >3mins.? @ -No Was critical care preformed (if so, how long)? @ -No Were there social determinants of health that impacted care today? How? (Homelessness, low income, unemployed, alcoholism, drug addiction, transportation, low edu. Level, literacy, decrease access to med. care, retirement, rehab)? @ -No Was there de-escalation of care discussed even if they declined (Discuss DNR or withdrawal of care, Hospice)? DNR status @ -No What co-morbidities impacted this encounter? (DM, HTN, Smoking, COPD, CAD, Cancer, CVA, ARF, Chemo, Hep., AIDS, mental health diagnosis, sleep apnea, morbid obesity)? @ -Insulin-dependent diabetes Was patient admitted / discharged? Hospital course, mention meds given and route, prescriptions, significant lab abnormalities, going to OR and other pertinent info. @ -83-year-old male with some episodes of confusion and minor falls over the past 2 weeks. Family concerned that this may be related to hypoglycemia and have obtained a continuous glucose monitor which they have not used thus far. Workup reveals normal CBC, CMP shows a mild SARAH and normal blood glucose. Urinalysis is negative. X-rays of the chest and left hip are negative. Patient is feeling fine and is eager for discharge. He is agreeable with wearing the continuous glucose monitor and returning as needed. He is instructed to drink more fluids. Return parameters discussed. Undiagnosed new problem with uncertain prognosis? @ -No Drug Therapy requiring intensive monitoring for toxicity (Heparin, Nitro, Insulin, Cardizem)? @ -No Were any procedures done? @ -No Diagnosis/symptom? @ -[Intermittent confusion, possible hypoglycemia Acute, or Chronic, or Acute on Chronic? @Acute Uncomplicated (without systemic symptoms) or Complicated (systemic symptoms)? @ -Default Side effects of treatment? @ -No Exacerbation, Progression, or Severe Exacerbation? @ -No Poses a threat to life or bodily function? How? (Chest pain, USA, CT, pneumonia, PE, COPD, DKA, ARF, appy, cholecystitis, CVA, Diverticulitis, Homicidal, Suicidal, threat to staff... and all critical care pts) @Low risk at this time (Son Patton) - Lab Data Lab Results 01/23/24 01/23/24 01/23/24 Range/Units 17:34 18:03 18:03 WBC 6.6 (3.8-10.6) k/uL RBC 4.96 (4.30-5.90) m/uL Hgb 14.8 (13.0-17.5) gm/dL Hct 45.6 (39.0-53.0) % MCV 91.9 (80.0-100.0) fL MCH 29.8 (25.0-35.0) pg MCHC 32.5 (31.0-37.0) g/dL RDW 13.2 (11.5-15.5) % Plt Count 175 (150-450) k/uL MPV 8.0 Neutrophils % 73 % Lymphocytes % 19 % Monocytes % 6 % Eosinophils % 1 % Basophils % 0 % Neutrophils # 4.8 (1.3-7.7) k/uL Lymphocytes # 1.3 (1.0-4.8) k/uL Monocytes # 0.4 (0-1.0) k/uL Eosinophils # 0.1 (0-0.7) k/uL Basophils # 0.0 (0-0.2) k/uL PT 12.0 (10.0-12.5) sec INR 1.1 (<1.2) APTT 22.7 (22.0-30.0) sec Sodium (137-145) mmol/L Potassium (3.5-5.1) mmol/L Chloride (98-107) mmol/L Carbon Dioxide (22-30) mmol/L Anion Gap mmol/L BUN (9-20) mg/dL Creatinine (0.66-1.25) mg/dL Est GFR (CKD-EPI)AfAm (>60 ml/min/1.73 sqM) Est GFR (CKD-EPI)NonAf (>60 ml/min/1.73 sqM) Glucose (74-99) mg/dL POC Glucose (mg/dL) 79 (70-110) mg/dL POC Glu Manager Ob ID Raymundo Celaya Calcium (8.4-10.2) mg/dL Total Bilirubin (0.2-1.3) mg/dL AST (17-59) U/L ALT (4-49) U/L Alkaline Phosphatase (38-126) U/L Troponin I (0.000-0.034) ng/mL Total Protein (6.3-8.2) g/dL Albumin (3.5-5.0) g/dL Urine Color Urine Appearance (Clear) Urine pH (5.0-8.0) Ur Specific [place] (1.001-1.035) Urine Protein (Negative) Urine Glucose (UA) (Negative) Urine Ketones (Negative) Urine Blood (Negative) Urine Nitrite (Negative) Urine Bilirubin (Negative) Urine Urobilinogen (<2.0) mg/dL Ur Leukocyte Esterase (Negative) Urine Opiates Screen Ur Oxycodone Screen Urine Methadone Screen Ur Barbiturates Screen U Tricyclic Antidepress Ur Phencyclidine Scrn Ur Amphetamines Screen U Methamphetamines Scrn U Benzodiazepines Scrn Urine Cocaine Screen U Marijuana (THC) Screen 01/23/24 01/23/24 01/23/24 Range/Units 18:03 18:03 18:03 WBC (3.8-10.6) k/uL RBC (4.30-5.90) m/uL Hgb (13.0-17.5) gm/dL Hct (39.0-53.0) % MCV (80.0-100.0) fL MCH (25.0-35.0) pg MCHC (31.0-37.0) g/dL RDW (11.5-15.5) % Plt Count (150-450) k/uL MPV Neutrophils % % Lymphocytes % % Monocytes % % Eosinophils % % Basophils % % Neutrophils # (1.3-7.7) k/uL Lymphocytes # (1.0-4.8) k/uL Monocytes # (0-1.0) k/uL Eosinophils # (0-0.7) k/uL Basophils # (0-0.2) k/uL PT (10.0-12.5) sec INR (<1.2) APTT (22.0-30.0) sec Sodium 142 (137-145) mmol/L Potassium 3.4 L (3.5-5.1) mmol/L Chloride 107 (98-107) mmol/L Carbon Dioxide 29 (22-30) mmol/L Anion Gap 6 mmol/L BUN 23 H (9-20) mg/dL Creatinine 1.86 H (0.66-1.25) mg/dL Est GFR (CKD-EPI)AfAm 38 (>60 ml/min/1.73 sqM) Est GFR (CKD-EPI)NonAf 33 (>60 ml/min/1.73 sqM) Glucose 85 (74-99) mg/dL POC Glucose (mg/dL) (70-110) mg/dL POC Glu Manager Ob ID Calcium 9.3 (8.4-10.2) mg/dL Total Bilirubin 0.6 (0.2-1.3) mg/dL AST 23 (17-59) U/L ALT 16 (4-49) U/L Alkaline Phosphatase 52 (38-126) U/L Troponin I <0.012 (0.000-0.034) ng/mL Total Protein 7.0 (6.3-8.2) g/dL Albumin 4.2 (3.5-5.0) g/dL Urine Color Colorless Urine Appearance Clear (Clear) Urine pH 6.0 (5.0-8.0) Ur Specific [place] 1.014 (1.001-1.035) Urine Protein Negative (Negative) Urine Glucose (UA) 4+ H (Negative) Urine Ketones Negative (Negative) Urine Blood Negative (Negative) Urine Nitrite Negative (Negative) Urine Bilirubin Negative (Negative) Urine Urobilinogen <2.0 (<2.0) mg/dL Ur Leukocyte Esterase Negative (Negative) Urine Opiates Screen Cancelled Ur Oxycodone Screen Cancelled Urine Methadone Screen Cancelled Ur Barbiturates Screen Cancelled U Tricyclic Antidepress Cancelled Ur Phencyclidine Scrn Cancelled Ur Amphetamines Screen Cancelled U Methamphetamines Scrn Cancelled U Benzodiazepines Scrn Cancelled Urine Cocaine Screen Cancelled U Marijuana (THC) Screen Cancelled 01/23/24 Range/Units 20:05 WBC (3.8-10.6) k/uL RBC (4.30-5.90) m/uL Hgb (13.0-17.5) gm/dL Hct (39.0-53.0) % MCV (80.0-100.0) fL MCH (25.0-35.0) pg MCHC (31.0-37.0) g/dL RDW (11.5-15.5) % Plt Count (150-450) k/uL MPV Neutrophils % % Lymphocytes % % Monocytes % % Eosinophils % % Basophils % % Neutrophils # (1.3-7.7) k/uL Lymphocytes # (1.0-4.8) k/uL Monocytes # (0-1.0) k/uL Eosinophils # (0-0.7) k/uL Basophils # (0-0.2) k/uL PT (10.0-12.5) sec INR (<1.2) APTT (22.0-30.0) sec Sodium (137-145) mmol/L Potassium (3.5-5.1) mmol/L Chloride (98-107) mmol/L Carbon Dioxide (22-30) mmol/L Anion Gap mmol/L BUN (9-20) mg/dL Creatinine (0.66-1.25) mg/dL Est GFR (CKD-EPI)AfAm (>60 ml/min/1.73 sqM) Est GFR (CKD-EPI)NonAf (>60 ml/min/1.73 sqM) Glucose (74-99) mg/dL POC Glucose (mg/dL) 135 H (70-110) mg/dL POC Glu Manager Ob ARIAN Smith Calcium (8.4-10.2) mg/dL Total Bilirubin (0.2-1.3) mg/dL AST (17-59) U/L ALT (4-49) U/L Alkaline Phosphatase (38-126) U/L Troponin I (0.000-0.034) ng/mL Total Protein (6.3-8.2) g/dL Albumin (3.5-5.0) g/dL Urine Color Urine Appearance (Clear) Urine pH (5.0-8.0) Ur Specific [place] (1.001-1.035) Urine Protein (Negative) Urine Glucose (UA) (Negative) Urine Ketones (Negative) Urine Blood (Negative) Urine Nitrite (Negative) Urine Bilirubin (Negative) Urine Urobilinogen (<2.0) mg/dL Ur Leukocyte Esterase (Negative) Urine Opiates Screen Ur Oxycodone Screen Urine Methadone Screen Ur Barbiturates Screen U Tricyclic Antidepress Ur Phencyclidine Scrn Ur Amphetamines Screen U Methamphetamines Scrn U Benzodiazepines Scrn Urine Cocaine Screen U Marijuana (THC) Screen Disposition <Rory Armas - Last Filed: 01/23/24 17:50> Is patient prescribed a controlled substance at d/c from ED?: No Time of Disposition: 21:09 <Son Patton - Last Filed: 01/23/24 21:09> Clinical Impression: Diabetes, Altered mental status Disposition: HOME SELF-CARE Condition: Good Instructions (If sedation given, give patient instructions): Hypoglycemia in a Person with Diabetes (ED) Additional Instructions: Please monitor blood glucose closely and return to the emergency department with any worsening or changing symptoms Referrals: Emely Gutierrez DO [Primary Care Provider] - 1-2 days
[2024-01-23 18:46] LABS: Basophils % (A) 0 %; Eosinophils # (A) 0.1 k/uL (0-0.7); Eosinophils % (A) 1 %; HCT 45.6 % (39.0-53.0); HGB 14.8 gm/dL (13.0-17.5); Lymphocytes # (A) 1.3 k/uL (1.0-4.8); Lymphocytes % (A) 19 %; MCH 29.8 pg (25.0-35.0); MCHC 32.5 g/dL (31.0-37.0); MCV 91.9 fL (80.0-100.0); Monocytes # (A) 0.4 k/uL (0-1.0); Monocytes % (A) 6 %; Neutrophils # (A) 4.8 k/uL (1.3-7.7); Neutrophils % (A) 73 %; Platelet Count 175 k/uL (150-450); RBC 4.96 m/uL (4.30-5.90); RDW 13.2 % (11.5-15.5); WBC 6.6 k/uL (3.8-10.6)
[2024-01-23 18:59] LABS: ALT 16 U/L (4-49); AST 23 U/L (17-59); African American GFR (CKD) 38 (>60 ml/min/1.73 sqM); Albumin 4.2 g/dL (3.5-5.0); Alkaline Phosphatase 52 U/L (38-126); Anion Gap 6 mmol/L; Blood Urea Nitrogen 23 mg/dL (9-20); Calcium 9.3 mg/dL (8.4-10.2); Carbon Dioxide 29 mmol/L (22-30); Chloride 107 mmol/L (98-107); Glucose 85 mg/dL (74-99); Non-African American GFR(CKD) 33 (>60 ml/min/1.73 sqM); Potassium 3.4 mmol/L (3.5-5.1); Sodium 142 mmol/L (137-145); Total Bilirubin 0.6 mg/dL (0.2-1.3)
--- NOTE | 2024-01-23 19:04 | XR ---
EXAMINATION TYPE: XR Hip LT and AP Pelvis DATE OF EXAM: 01/23/2024 6:58 PM COMPARISON: None. CLINICAL INDICATION: Male, 83 years old with history of fall/pain, TECHNIQUE: XR Hip LT and AP Pelvis view(s) obtained. FINDINGS: Femoral heads articulate with the acetabulum. Multiple surgical clips may be from prior prostatectomy . Sacroiliac joints are normal. Symphysis pubis is normal. No acute fracture or dislocation evident Left hip appears intact. Femoral head articulates with the acetabulum. Joint space is preserved. No d isplaced fracture identified. IMPRESSION: 1. No acute osseous abnormality AP Pelvis [facility], , 01/23/2024 7:01 PM
--- NOTE | 2024-01-23 19:05 | XR ---
EXAMINATION TYPE: XR chest 2V DATE OF EXAM: 01/23/2024 7:01 PM COMPARISON: 01/02/2021 CLINICAL INDICATION: Male, 83 years old with history of altered mental status, TECHNIQUE: XR chest 2V view(s) obtained. FINDINGS: The heart size is normal. The pulmonary vasculature is normal. The lungs are clear. No pneumothorax is evident. Sternotomy wires are in the midline. IMPRESSION: 1. No acute pulmonary process. [facility], , 01/23/2024 7:02 PM
[2024-01-23 19:30] LABS: INR 1.1 (<1.2); Partial Thromboplastin Time 22.7 sec (22.0-30.0)
[2024-01-23 20:07] LABS: Glucose,Whole Blood 135 mg/dL (70-110)
[2024-01-23 20:08] VITALS: TEMP 98.4
[2024-01-23 20:27] LABS: Appearance,Urine Clear (Clear); Bilirubin,Urine Negative (Negative); Blood,Urine Negative (Negative); Color,Urine Colorless; Glucose,Urine (UA) 4+ (Negative); Ketones,Urine Negative (Negative); Leukocyte Esterase,Urine Negative (Negative); Nitrite,Urine Negative (Negative); Protein,Urine Negative (Negative); Specific Gravity,Urine 1.014 (1.001-1.035); Urobilinogen,Urine <2.0 mg/dL (<2.0)
[2024-01-23 21:18] VITALS: BP 143/78; PULSE 63; RESP 16
== END 2024-01-23 21:17 | disposition home or self-care (01) ==
LOC: EC 17:23
DX: R41.82 Altered mental status, unspecified (principal); E11.9 Type 2 diabetes mellitus without complications; Z87.891 Personal history of nicotine dependence; Z91.030 Bee allergy status; Z91.018 Allergy to other foods; Z79.4 Long term (current) use of insulin; Z95.1 Presence of aortocoronary bypass graft; Z95.5 Presence of coronary angioplasty implant and graft
CPT/HCPCS: 36415; 71046; 73502; 80053; 81003; 84484; 85025; 85610; 85730; 93005; 99285

== ENCOUNTER 2024-05-09 04:56 | Inpatient (IN) | payer OTHER, MEDICARE ==
[2024-05-09] MEDS: MORPHINE SULFATE 4 MG/ML SYRINGE IV STA (05:47)
--- NOTE | 2024-05-09 06:04 | ED ---
Abdominal Pain HPI - General Source: patient Mode of arrival: wheelchair Limitations: no limitations - History of Present Illness MD Complaint: abdominal pain Onset/Timin -: hour(s) Location: periumbilical Radiation: none Migration to: no migration Severity: severe Quality: cramping, fullness Consistency: constant Improves With: nothing Worsens With: nothing Associated Symptoms: vomiting <Issa Leung - Last Filed: 05/09/24 07:01> - General Source: patient, RN notes reviewed, old records reviewed Mode of arrival: wheelchair Limitations: no limitations - History of Present Illness Complaint: abdominal pain -: hour(s) Location: periumbilical, RUQ Radiation: none Migration to: no migration Severity: moderate Severity scale (1-10): 6 Quality: stabbing Improves With: nothing Worsens With: eating Associated Symptoms: nausea, vomiting Treatments Prior to Arrival: other (0) Gage Stoddard - Last Filed: 05/13/24 17:34> - General Chief Complaint: Abdominal Pain Stated Complaint: weakness NV abd pain Time Seen by Provider: 05/09/24 05:16 - History of Present Illness Initial Comments: This patient is an 83-year-old man with history of previous colon cancer s/p resection, who presents to have evaluation of periumbilical pain that has been going on since about 8 PM. Patient states that it had come on after he had finished eating. Patient states the pain is a fullness and has a sharp component. He states that to try and relieve the pain he induced vomiting at home, but that did not really alter the pain. Patient denies other associated symptoms. He did have a bowel movement yesterday earlier in the day and felt that it was normal. No change in urination. (Issa Leung) 83 male to the ER for eval of abdominal pain. Prior colon resection here at this hospital Dr. Womack (Gage Granados) - Related Data Home Medications Medication Instructions Recorded Confirmed Ergocalciferol [Vitamin D2 (1250 1,250 mcg PO Q7D 12/10/20 05/09/24 Mcg = 21783 Iu)] Metoprolol Tartrate [Lopressor] 25 mg PO BID 12/10/20 05/09/24 hydroCHLOROthiazide [Hydrodiuril] 25 mg PO DAILY 12/10/20 05/09/24 Atorvastatin [Lipitor] 40 mg PO DAILY 05/09/24 05/09/24 Empagliflozin [Jardiance] 10 mg PO DAILY 05/09/24 05/09/24 Losartan Potassium 100 mg PO DAILY 05/09/24 05/09/24 glyBURIDE [Diabeta] 5 mg PO BID 05/09/24 05/09/24 sitaGLIPtin [Januvia] 100 mg PO DAILY 05/09/24 05/09/24 Previous Rx's Medication Instructions Recorded Aspirin EC [Ecotrin Low Dose] 81 mg PO DAILY #60 tablet. 12/19/14 Allergies Allergy/AdvReac Type Severity Reaction Status Date / Time bee venom protein (honey bee) Allergy Rash/Hives Verified 05/09/24 09:52 tree nut [Nut] Allergy Rash/Hives Verified 05/09/24 09:52 Review of Systems ROS Other: All systems not noted in ROS Statement are negative. Constitutional: Denies: fever, chills, weakness Respiratory: Denies: cough, dyspnea Cardiovascular: Denies: chest pain, palpitations, edema Gastrointestinal: Reports: as per HPI, abdominal pain, vomiting. Denies: diarrhea, constipation, hematemesis, melena, hematochezia Genitourinary: Denies: dysuria, hematuria, testicular pain Musculoskeletal: Denies: back pain Skin: Denies: rash Neurological: Denies: headache <Issa Leung - Last Filed: 05/09/24 07:01> ROS Other: All systems not noted in ROS Statement are negative. <Gage Granados - Last Filed: 05/13/24 17:34> ROS Statement: Those systems with pertinent positive or pertinent negative responses have been documented in the HPI. Past Medical History Past Medical History: Asthma, Coronary Artery Disease (CAD), Cancer, Diabetes Mellitus, Hyperlipidemia, Hypertension, Myocardial Infarction ([place]), Osteoarthritis (OA), Prostate Disorder Additional Past Medical History / Comment(s): PROSTATE CANCER. colon cancer, Last Myocardial Infarction Date:: 06/30/2015 History of Any Multi-Drug Resistant Organisms: None Reported Past Surgical History: Coronary Bypass/CABG, Heart Catheterization, Heart Catheterization With Stent, Prostate Surgery Additional Past Surgical History / Comment(s): TRIPLE VESSEL CABG-06/30/2015, COLONOSCOPY, two cardiac stents Past Anesthesia/Blood Transfusion Reactions: No Reported Reaction Date of Last Stent Placement:: 2004 Past Psychological History: No Psychological Hx Reported Smoking Status: Former smoker Past Alcohol Use History: None Reported Past Drug Use History: None Reported - Past Family History Father Family Medical History: CVA/TIA Mother Family Medical History: Cancer Additional Family Medical History / Comment(s): COLON CANCER <Issa Leung - Last Filed: 05/09/24 07:01> General Exam Limitations: no limitations General appearance: alert, in no apparent distress Head exam: Present: atraumatic, normocephalic Eye exam: Present: normal appearance. Absent: scleral icterus, conjunctival injection ENT exam: Present: normal oropharynx Neck exam: Present: normal inspection Respiratory exam: Present: normal lung sounds bilaterally. Absent: respiratory distress, wheezes, rales, rhonchi, stridor, accessory muscle use Cardiovascular Exam: Present: regular rate, normal rhythm, normal heart sounds. Absent: systolic murmur, diastolic murmur, rubs, gallop GI/Abdominal exam: Present: soft, tenderness (Left upper quadrant). Absent: distended, guarding, rebound, rigid, mass, pulsatile mass, hernia Extremities exam: Present: normal inspection, normal capillary refill. Absent: pedal edema, calf tenderness Back exam: Present: normal inspection. Absent: CVA tenderness (R), CVA tenderness (L) Neurological exam: Present: alert Skin exam: Present: warm, dry, intact, normal color. Absent: rash <Issa Leung - Last Filed: 05/09/24 07:01> General appearance: alert, in no apparent distress Head exam: Present: atraumatic, normocephalic, normal inspection Eye exam: Present: normal appearance, PERRL, EOMI. Absent: scleral icterus, conjunctival injection, periorbital swelling ENT exam: Present: normal exam, mucous membranes moist Neck exam: Present: normal inspection. Absent: tenderness, meningismus, lymphadenopathy Respiratory exam: Present: normal lung sounds bilaterally. Absent: respiratory distress, wheezes, rales, rhonchi, stridor Cardiovascular Exam: Present: normal rhythm, tachycardia, normal heart sounds. Absent: systolic murmur, diastolic murmur, rubs, gallop, clicks GI/Abdominal exam: Present: soft, tenderness (Left upper quadrantand RUQ, e pigastric), normal bowel sounds. Absent: distended, guarding, rebound, rigid Extremities exam: Present: normal inspection, full ROM, normal capillary refill. Absent: tenderness, pedal edema, joint swelling, calf tenderness Back exam: Present: normal inspection Neurological exam: Present: alert, oriented X3, CN II-XII intact Psychiatric exam: Present: normal affect, normal mood Skin exam: Present: warm, dry, intact, normal color. Absent: rash <Gage Granados - Last Filed: 05/13/24 17:34> Course <Gage Granados - Last Filed: 05/13/24 17:34> Vital Signs 05/09/24 05/09/24 05/09/24 04:57 06:32 07:21 Temperature 97.9 F Pulse Rate 102 H 93 50 L Respiratory 20 14 18 Rate Blood Pressure 146/83 140/78 138/67 O2 Sat by Pulse 95 92 L 93 L Oximetry 05/09/24 05/09/24 08:02 09:16 Temperature Pulse Rate 92 Respiratory 18 Rate Blood Pressure 138/78 O2 Sat by Pulse 96 98 Oximetry - Reevaluation(s) Reevaluation #1: 05/09/24 08:[address] scan earlier today showing cholecystitis, this is also shown on ultrasound with right upper quadrant pain Prior inpatient evaluation and abdominal surgery with Dr. Womack is reviewed (Gage Granados) Reevaluation #2: 05/09/24 08:30 Patient's pain is improved Patient's pain remains improved mild nausea no vomiting (Gage Granados) Reevaluation #3: 05/09/24 08:30 Patient informed of results questions answered (Gage Granados) Reevaluation #4: Was pt. sent in by a medical professional or institution (, PA, DIRECTOR BROADCAST, urgent care, hospital, or fci...) When possible be specific @ -no Did you speak to anyone other than the patient for history (EMS, parent, family, police, friend...)? What history was obtained from this source @ -no Did you review nursing and triage notes (agree or disagree)? Why? @ -agree Are old charts reviewed (outside hosp., previous admission, EMS record, old EKG, old radiological studies, urgent care reports/EKG's, fci records)? Report findings @ -yes Differential Diagnosis (chest pain, altered mental status, abdominal pain women, abdominal pain men, vaginal bleeding, weakness, fever, dyspnea, syncope, headache, dizziness, GI bleed, back pain, seizure, CVA, palpatations, mental health, musculoskeletal)? @ -prior EKG interpreted by me (3pts min.). @ -yes X-rays interpreted by me (1pt min.). @ -no CT interpreted by me (1pt min.). @ -Yes positive cholecystitis U/S interpreted by me (1pt. min.). @ -yes positive for cholecystitis What testing was considered but not performed or refused? (CT, X-rays, U/S, labs)? Why? @ -none What meds were considered but not given or refused? Why? @ -none Did you discuss the management of the patient with other professionals (professionals i.e. , PA, DIRECTOR BROADCAST, lab, RT, psych nurse, adoption social worker, preventative maintenance technician, teacher, chief risk officer, leather case finisher)? Give summary @ -no Was smoking cessation discussed for >3mins.? @ -no Was critical care preformed (if so, how long)? @ -no Were there social determinants of health that impacted care today? How? (Homelessness, low income, unemployed, alcoholism, drug addiction, transportation, low edu. Level, literacy, decrease access to med. care, care home, rehab)? @ -none Was there de-escalation of care discussed even if they declined (Discuss DNR or withdrawal of care, Hospice)? DNR status @ -no What co-morbidities impacted this encounter? (DM, HTN, Smoking, COPD, CAD, Cancer, CVA, ARF, Chemo, Hep., AIDS, mental health diagnosis, sleep apnea, morbid obesity)? @ -none Was patient admitted / discharged? Hospital course, mention meds given and route, prescriptions, significant lab abnormalities, going to OR and other pertinent info. @ - 83 male to ER prior abdominal surgery coming in for abdominal pain today. CT scan questionable cholecystitis ultrasound also suggestive of cholecystitis patient placed on antibiotics and will admit for symptom control and surgical consult Admitted Undiagnosed new problem with uncertain prognosis? @ -no Drug Therapy requiring intensive monitoring for toxicity (Heparin, Nitro, Insulin, Cardizem)? @ -no Were any procedures done? @ -no Diagnosis/symptom? @ -Acute cholecystitis Acute, or Chronic, or Acute on Chronic? @ -Acute Uncomplicated (without systemic symptoms) or Complicated (systemic symptoms)? @ -Complicated Side effects of treatment? @ -no Exacerbation, Progression, or Severe Exacerbation? @ -exacerbation Poses a threat to life or bodily function? How? (Chest pain, [place], [place], pneumonia, PE, COPD, DKA, ARF, appy, cholecystitis, CVA, Diverticulitis, Homicidal, Suicidal, threat to staff... and all critical care pts) @ -yes extremes of age 0305/13/24 17:34 (Gage Granados) Reevaluation #5: Differential Abdominal Pain Men: Appendicitis, cholecystitis, diverticulosis, ischemic bowel, pancreatitis, hepatitis, UTI, gastroenteritis, AAA, incarcerated hernia, bowel obstruction, constipation, inflammatory bowel, hepatitis, peptic ulcer disease, splenic infarction, perforated viscus, testicular torsion, this is not meant to be an all-inclusive list (Gage Granados) - Consultations Consultation #1: Spoke with Dr. Womack regarding patient he agrees to admit (Gage Granados) Medical Decision Making - Lab Data Result diagrams: 05/09/24 06:14 - EKG Data -: EKG Interpreted by Md EKG shows normal: sinus rhythm (With frequent PVCs, rate 97 bpm), axis (Left axis deviation), intervals (Normal), QRS complexes (There is an intraventricular conduction delay. Possible pulmonary disease pattern.), ST-T waves (Anterior ischemia) <Issa Leung - Last Filed: 05/09/24 07:01> - Lab Data Result diagrams: 05/13/24 07:08 05/13/24 07:08 - EKG Data -: EKG Interpreted by Md - Radiology Data Radiology results: report reviewed (CT abdomen pelvis ultrasound gallbladder suggestive of cholecystitis), image reviewed <Gage Granados - Last Filed: 05/13/24 17:34> - Medical Decision Making 83 male to ER prior abdominal surgery coming in for abdominal pain today. CT scan questionable cholecystitis ultrasound also suggestive of cholecystitis patient placed on antibiotics and will admit for symptom control and surgical consult (Gage Granados - Lab Data Lab Results 05/09/24 05/09/24 05/09/24 Range/Units 06:14 06:32 06:32 WBC (3.8-10.6) k/uL RBC (4.30-5.90) m/uL Hgb (13.0-17.5) gm/dL Hct (39.0-53.0) % MCV (80.0-100.0) fL MCH (25.0-35.0) pg MCHC (31.0-37.0) g/dL RDW (11.5-15.5) % Plt Count (150-450) k/uL MPV Neutrophils % % Lymphocytes % % Monocytes % % Eosinophils % % Basophils % % Neutrophils # (1.3-7.7) k/uL Lymphocytes # (1.0-4.8) k/uL Monocytes # (0-1.0) k/uL Eosinophils # (0-0.7) k/uL Basophils # (0-0.2) k/uL Sodium 137 (137-145) mmol/L Potassium 5.0 (3.5-5.1) mmol/L Chloride 101 (98-107) mmol/L Carbon Dioxide 21 L (22-30) mmol/L Anion Gap 15 mmol/L BUN 17 (9-20) mg/dL Creatinine 1.54 H (0.66-1.25) mg/dL Est GFR (CKD-EPI)AfAm 48 (>60 ml/min/1.73 sqM) Est GFR (CKD-EPI)NonAf 41 (>60 ml/min/1.73 sqM) Glucose 184 H (74-99) mg/dL Plasma Lactic Acid Naif 1.6 (0.7-2.0) mmol/L Calcium 9.2 (8.4-10.2) mg/dL Total Bilirubin 1.6 H (0.2-1.3) mg/dL AST 30 (17-59) U/L ALT 13 (4-49) U/L Alkaline Phosphatase 45 (38-126) U/L Troponin I 0.024 (0.000-0.034) ng/mL Total Protein 7.1 (6.3-8.2) g/dL Albumin 4.2 (3.5-5.0) g/dL Amylase 81 (30-110) U/L Lipase 75 (23-300) U/L Urine Color Urine Appearance (Clear) Urine pH (5.0-8.0) Ur Specific Bucks (1.001-1.035) Urine Protein (Negative) Urine Glucose (UA) (Negative) Urine Ketones (Negative) Urine Blood (Negative) Urine Nitrite (Negative) Urine Bilirubin (Negative) Urine Urobilinogen (<2.0) mg/dL Ur Leukocyte Esterase (Negative) 05/09/24 05/09/24 Range/Units 07:08 07:40 WBC 14.3 H (3.8-10.6) k/uL RBC 5.08 (4.30-5.90) m/uL Hgb 14.4 (13.0-17.5) gm/dL Hct 46.5 (39.0-53.0) % MCV 91.7 (80.0-100.0) fL MCH 28.4 (25.0-35.0) pg MCHC 31.0 (31.0-37.0) g/dL RDW 13.2 (11.5-15.5) % Plt Count 148 L (150-450) k/uL MPV 7.8 Neutrophils % 89 % Lymphocytes % 5 % Monocytes % 4 % Eosinophils % 1 % Basophils % 0 % Neutrophils # 12.7 H (1.3-7.7) k/uL Lymphocytes # 0.8 L (1.0-4.8) k/uL Monocytes # 0.5 (0-1.0) k/uL Eosinophils # 0.2 (0-0.7) k/uL Basophils # 0.0 (0-0.2) k/uL Sodium (137-145) mmol/L Potassium (3.5-5.1) mmol/L Chloride (98-107) mmol/L Carbon Dioxide (22-30) mmol/L Anion Gap mmol/L BUN (9-20) mg/dL Creatinine (0.66-1.25) mg/dL Est GFR (CKD-EPI)AfAm (>60 ml/min/1.73 sqM) Est GFR (CKD-EPI)NonAf (>60 ml/min/1.73 sqM) Glucose (74-99) mg/dL Plasma Lactic Acid Naif (0.7-2.0) mmol/L Calcium (8.4-10.2) mg/dL Total Bilirubin (0.2-1.3) mg/dL AST (17-59) U/L ALT (4-49) U/L Alkaline Phosphatase (38-126) U/L Troponin I (0.000-0.034) ng/mL Total Protein (6.3-8.2) g/dL Albumin (3.5-5.0) g/dL Amylase (30-110) U/L Lipase (23-300) U/L Urine Color Colorless Urine Appearance Clear (Clear) Urine pH 5.0 (5.0-8.0) Ur Specific Bucks 1.022 (1.001-1.035) Urine Protein Negative (Negative) Urine Glucose (UA) 4+ H (Negative) Urine Ketones 3+ H (Negative) Urine Blood Negative (Negative) Urine Nitrite Negative (Negative) Urine Bilirubin Negative (Negative) Urine Urobilinogen <2.0 (<2.0) mg/dL Ur Leukocyte Esterase Negative (Negative) Disposition <Issa Leung - Last Filed: 05/09/24 07:01> Is patient prescribed a controlled substance at d/c from ED?: No Time of Disposition: 08:30 <Gage Granados - Last Filed: 05/13/24 17:34> Clinical Impression: Abdominal pain, Abdominal colic, Acute cholecystitis, Bradycardia Disposition: ADMITTED IP TO THIS HOSP Condition: Fair
[2024-05-09 06:37] LABS: ALT 13 U/L (4-49); AST 30 U/L (17-59); African American GFR (CKD) 48 (>60 ml/min/1.73 sqM); Albumin 4.2 g/dL (3.5-5.0); Alkaline Phosphatase 45 U/L (38-126); Amylase 81 U/L (30-110); Anion Gap 15 mmol/L; Blood Urea Nitrogen 17 mg/dL (9-20); Calcium 9.2 mg/dL (8.4-10.2); Carbon Dioxide 21 mmol/L (22-30); Chloride 101 mmol/L (98-107); Glucose 184 mg/dL (74-99); Lipase 75 U/L (23-300); Non-African American GFR(CKD) 41 (>60 ml/min/1.73 sqM); Sodium 137 mmol/L (137-145); Total Bilirubin 1.6 mg/dL (0.2-1.3); Total Protein 7.1 g/dL (6.3-8.2)
--- NOTE | 2024-05-09 07:24 | CT ---
EXAMINATION TYPE: CT abdomen pelvis wo con DATE OF EXAM: 05/09/2024 HISTORY: Abdominal pain. Epigastric pain for [address] DLP: 665.9 mGycm. Automated Exposure Control for Dose Reduction was Utilized. TECHNIQUE: CT scan of the abdomen and pelvis is performed without oral or IV contrast. COMPARISON: NONE FINDINGS: Within the limitations of a non-contrast study, the following observations are made. LUNG BASES: Mild bibasilar linear scarring and/or atelectasis. Overlying sternal wires are partially imaged. LIVER/GB: There is 3.1 cm thin-walled cyst in the left hepatic dome axial image 14. There are a few a dditional subcentimeter low dense lesions throughout the liver that are too small to further characte rize. Gallbladder has distended margins with mild 2 moderate surrounding fat stranding. No biliary di latation. PANCREAS: No significant abnormality is seen. SPLEEN: No significant abnormality is seen. ADRENALS: No significant abnormality is seen. KIDNEYS: No renal stones or hydronephrosis is present bilaterally. Mild to moderately distended bladd er without intraluminal calculus BOWEL: There is incidental 2.2 cm second portion duodenal diverticulum coronal image 36. No abnormal small or large bowel dilatation. Surgical sutures in the sigmoid colon of the pelvis are present. GENITAL ORGANS: Prostate gland is surgically absent. LYMPH NODES: No greater than 1cm abdominal or pelvic lymph nodes are appreciated. OSSEOUS STRUCTURES: No significant abnormality is seen. OTHER: Mild to moderate calcified plaque of the aorta extends into branch vessels. Focal eventration just above the umbilicus containing nondilated small bowel loop. IMPRESSION: CT findings suggest acute cholecystitis. Clinical correlation and surgical evaluation rec ommended. [facility], , 05/09/2024 7:21 AM
[2024-05-09] MEDS ORDERED: MORPHINE SULFATE 4 MG/ML SYRINGE IVP PRN (07:28)
[2024-05-09 07:36] LABS: Appearance,Urine Clear (Clear); Bilirubin,Urine Negative (Negative); Blood,Urine Negative (Negative); Color,Urine Colorless; Glucose,Urine (UA) 4+ (Negative); Leukocyte Esterase,Urine Negative (Negative); Nitrite,Urine Negative (Negative); Protein,Urine Negative (Negative); Specific Gravity,Urine 1.022 (1.001-1.035); Urobilinogen,Urine <2.0 mg/dL (<2.0)
[2024-05-09 07:47] LABS: Ketones,Urine 3+ (Negative)
[2024-05-09] MEDS: PANTOPRAZOLE 40 MG/10 ML VIAL IVP STA (07:47)
[2024-05-09 07:51] LABS: Basophils % (A) 0 %; Eosinophils % (A) 1 %; HCT 46.5 % (39.0-53.0); HGB 14.4 gm/dL (13.0-17.5); Lymphocytes % (A) 5 %; MCH 28.4 pg (25.0-35.0); MCV 91.7 fL (80.0-100.0); Mean Platelet Volume 7.8; Monocytes % (A) 4 %; Neutrophils % (A) 89 %; Platelet Count 148 k/uL (150-450); RBC 5.08 m/uL (4.30-5.90); RDW 13.2 % (11.5-15.5); WBC 14.3 k/uL (3.8-10.6)
[2024-05-09 07:52] LABS: Eosinophils # (A) 0.2 k/uL (0-0.7); Lymphocytes # (A) 0.8 k/uL (1.0-4.8); Monocytes # (A) 0.5 k/uL (0-1.0); Neutrophils # (A) 12.7 k/uL (1.3-7.7)
[2024-05-09] MEDS: AMPICILLIN-SULBACTAM 3 GM in SODIUM CHLORIDE 0.9% 100 ML IVPB STA (07:52)
--- NOTE | 2024-05-09 08:27 | US ---
EXAMINATION TYPE: US gallbladder DATE OF EXAM: 05/09/2024 COMPARISON: CT abdomen and pelvis earlier today CLINICAL INDICATION: Male, 83 years old with history of pain; pain and vomiting. TECHNIQUE: Grayscale and color Doppler imaging of the right upper quadrant was performed. FINDINGS: EXAM MEASUREMENTS: Liver Length: 13.3 cm Gallbladder Wall: .3 cm CBD: .5 cm Right Kidney: 9.8 x 4.8 x 3.8 cm CLINICIAN ONCOLOGY NOTES: Pancreas: Obscured by bowel gas Liver: Limited due to bowel gas. Gallbladder: Echogenic area seen Evidence for sonographic Villafana's sign: yes CBD: wnl Right Kidney: No hydronephrosis or masses seen Suboptimal study. IMPRESSION: Suboptimal study. Edematous wall thickening on CT less prominent on ultrasound. However t here are internal gallstones and positive sonographic Villafana's sign and thus acute cholecystitis riley ot be excluded. Consider HIDA scan follow-up. [facility], , 05/09/2024 8:24 AM
[2024-05-09] MEDS: ONDANSETRON 4 MG/2 ML VIAL IVP STA (08:44)
[2024-05-09] MEDS: SODIUM CHLORIDE 0.9% 1,000 ML IV STA (09:10)
[2024-05-09] MEDS: SODIUM CHLORIDE 0.9% 500 ML 500 ML IV STA (09:11)
[2024-05-09] MEDS: SODIUM CHLORIDE 0.9% 1,000 ML IV SCH (09:13)
[2024-05-09] MEDS: IV FLUID CONTINUATION 800 ML IV ONE (09:55)
[2024-05-09] MEDS: IV FLUID CONTINUATION 900 ML IV ONE (09:56)
[2024-05-09 10:08] LABS: Glucose,Whole Blood 181 mg/dL (70-110)
[2024-05-09] MEDS: DEXAMETHASONE SOD PHOSPHATE 4 MG/ML 1 ML VIAL IVP STA (10:28)
[2024-05-09] MEDS: HEPARIN SODIUM,PORCINE 5,000 UNIT/ML 1 ML VIAL SQ STA (10:29)
[2024-05-09] MEDS: ONDANSETRON 4 MG/2 ML VIAL IVP PRN (10:29)
--- NOTE | 2024-05-09 10:51 | P.GSHP ---
History of Present Illness H&P Date: 05/09/24 Chief Complaint: Right upper quadrant pain This is a 83-year-old male who had complaints of upper quadrant pain for 24 hours. Patient was brought to the emergency room. He is found to have evidence of cholecystitis. Past Medical History Past Medical History: Asthma, Coronary Artery Disease (CAD), Cancer, Diabetes Mellitus, Hyperlipidemia, Hypertension, Myocardial Infarction ([place]), Osteoarthritis (OA), Prostate Disorder Additional Past Medical History / Comment(s): PROSTATE CANCER. colon cancer, Last Myocardial Infarction Date:: 06/30/2015 History of Any Multi-Drug Resistant Organisms: None Reported Past Surgical History: Coronary Bypass/CABG, Heart Catheterization, Heart Catheterization With Stent, Prostate Surgery Additional Past Surgical History / Comment(s): TRIPLE VESSEL CABG-06/30/2015, COLONOSCOPY, two cardiac stents Past Anesthesia/Blood Transfusion Reactions: No Reported Reaction Date of Last Stent Placement:: 2004 Past Psychological History: No Psychological Hx Reported Smoking Status: Former smoker Past Alcohol Use History: None Reported Past Drug Use History: None Reported - Past Family History Father Family Medical History: CVA/TIA Mother Family Medical History: Cancer Additional Family Medical History / Comment(s): COLON CANCER Medications and Allergies Home Medications Medication Instructions Recorded Confirmed Type Aspirin EC [Ecotrin Low Dose] 81 mg PO DAILY #60 tablet. 12/19/14 05/09/24 Rx Ergocalciferol [Vitamin D2 (1250 1,250 mcg PO Q7D 12/10/20 05/09/24 History Mcg = 47951 Iu)] Metoprolol Tartrate [Lopressor] 25 mg PO BID 12/10/20 05/09/24 History hydroCHLOROthiazide [Hydrodiuril] 25 mg PO DAILY 12/10/20 05/09/24 History Atorvastatin [Lipitor] 40 mg PO DAILY 05/09/24 05/09/24 History Empagliflozin [Jardiance] 10 mg PO DAILY 05/09/24 05/09/24 History Losartan Potassium 100 mg PO DAILY 05/09/24 05/09/24 History glyBURIDE [Diabeta] 5 mg PO BID 05/09/24 05/09/24 History sitaGLIPtin [Januvia] 100 mg PO DAILY 05/09/24 05/09/24 History Allergies Allergy/AdvReac Type Severity Reaction Status Date / Time bee venom protein (honey bee) Allergy Rash/Hives Verified 05/09/24 09:52 tree nut [Nut] Allergy Rash/Hives Verified 05/09/24 09:52 Surgical - Exam Vital Signs Temp Pulse Resp BP Pulse Ox 97.9 F 102 H 20 146/83 95 05/09/24 04:57 05/09/24 04:57 05/09/24 04:57 05/09/24 04:57 05/09/24 04:57 - General well developed, well nourished, no distress - Eyes PERRL - ENT normal pinna - Neck no masses - Respiratory normal expansion - Cardiovascular Rhythm: regular - Abdomen Right upper quadrant tenderness Abdomen: soft Results - Labs 05/09/24 07:40 05/09/24 06:14 Abnormal Lab Results - Last 24 Hours (Table) 05/09/24 05/09/24 05/09/24 Range/Units 06:14 07:08 07:40 WBC 14.3 H (3.8-10.6) k/uL Plt Count 148 L (150-450) k/uL Neutrophils # 12.7 H (1.3-7.7) k/uL Lymphocytes # 0.8 L (1.0-4.8) k/uL Carbon Dioxide 21 L (22-30) mmol/L Creatinine 1.54 H (0.66-1.25) mg/dL Glucose 184 H (74-99) mg/dL POC Glucose (mg/dL) (70-110) mg/dL Total Bilirubin 1.6 H (0.2-1.3) mg/dL Urine Glucose (UA) 4+ H (Negative) Urine Ketones 3+ H (Negative) 05/09/24 Range/Units 10:06 WBC (3.8-10.6) k/uL Plt Count (150-450) k/uL Neutrophils # (1.3-7.7) k/uL Lymphocytes # (1.0-4.8) k/uL Carbon Dioxide (22-30) mmol/L Creatinine (0.66-1.25) mg/dL Glucose (74-99) mg/dL POC Glucose (mg/dL) 181 H (70-110) mg/dL Total Bilirubin (0.2-1.3) mg/dL Urine Glucose (UA) (Negative) Urine Ketones (Negative) Diabetes panel 05/09/24 Range/Units 06:14 Sodium 137 (137-145) mmol/L Potassium 5.0 (3.5-5.1) mmol/L Chloride 101 (98-107) mmol/L Carbon Dioxide 21 L (22-30) mmol/L BUN 17 (9-20) mg/dL Creatinine 1.54 H (0.66-1.25) mg/dL Glucose 184 H (74-99) mg/dL Calcium 9.2 (8.4-10.2) mg/dL AST 30 (17-59) U/L ALT 13 (4-49) U/L Alkaline Phosphatase 45 (38-126) U/L Total Protein 7.1 (6.3-8.2) g/dL Albumin 4.2 (3.5-5.0) g/dL Calcium panel 05/09/24 Range/Units 06:14 Calcium 9.2 (8.4-10.2) mg/dL Albumin 4.2 (3.5-5.0) g/dL Pituitary panel 05/09/24 Range/Units 06:14 Sodium 137 (137-145) mmol/L Potassium 5.0 (3.5-5.1) mmol/L Chloride 101 (98-107) mmol/L Carbon Dioxide 21 L (22-30) mmol/L BUN 17 (9-20) mg/dL Creatinine 1.54 H (0.66-1.25) mg/dL Glucose 184 H (74-99) mg/dL Calcium 9.2 (8.4-10.2) mg/dL Adrenal panel 05/09/24 Range/Units 06:14 Sodium 137 (137-145) mmol/L Potassium 5.0 (3.5-5.1) mmol/L Chloride 101 (98-107) mmol/L Carbon Dioxide 21 L (22-30) mmol/L BUN 17 (9-20) mg/dL Creatinine 1.54 H (0.66-1.25) mg/dL Glucose 184 H (74-99) mg/dL Calcium 9.2 (8.4-10.2) mg/dL Total Bilirubin 1.6 H (0.2-1.3) mg/dL AST 30 (17-59) U/L ALT 13 (4-49) U/L Alkaline Phosphatase 45 (38-126) U/L Total Protein 7.1 (6.3-8.2) g/dL Albumin 4.2 (3.5-5.0) g/dL Assessment and Plan Plan: Cholecystitis. Will perform laparoscopic cholecystectomy.
[2024-05-09] MEDS ORDERED: NEOSTIGMINE 1 MG/ML 10 ML VIAL ONE (11:05)
[2024-05-09] MEDS ORDERED: PROPOFOL 10 MG/ML 20 ML VIAL IV ONE (11:05)
[2024-05-09] MEDS ORDERED: LIDOCAINE 1% INJ 10MG/ML (20 ML MDV) ONE (11:05)
[2024-05-09] MEDS ORDERED: SUCCINYLCHOLINE CHLORIDE 200 MG/10 ML VIAL IV ONE (11:05)
[2024-05-09] MEDS ORDERED: SUGAMMADEX SODIUM 100 MG/ML SYR IV ONE (11:05)
[2024-05-09] MEDS ORDERED: GLYCOPYRROLATE 0.2 MG/ML 2 ML VIAL ONE (11:05)
[2024-05-09] MEDS ORDERED: fentaNYL (PF) 50 MCG/ML 2 ML AMP ONE (11:05)
[2024-05-09] MEDS ORDERED: ROCURONIUM 10 MG/ML (5 ML VIAL) IV ONE (11:05)
[2024-05-09] MEDS ORDERED: METOPROLOL TARTRATE 5 MG/5 ML VIAL IVP ONE (11:05)
[2024-05-09] MEDS: SODIUM CHLORIDE 0.9% 50 ML with ceFAZolin 2,000 MG IV ONE (11:07)
[2024-05-09] MEDS: BUPIVACAINE (PF) 0.25% 30 ML VIAL SQ ONE (11:32)
[2024-05-09] MEDS: IV FLUID CONTINUATION 1,000 ML IV ONE (12:53)
[2024-05-09] MEDS ORDERED: NALOXONE 0.4 MG/ML 1 ML VIAL IV PRN (12:53)
[2024-05-09] MEDS ORDERED: HYDROmorphone 1 MG/ML 1 ML SYRINGE IVP PRN (12:53)
--- NOTE | 2024-05-09 12:53 | P.OP ---
Date of Procedure: 05/09/24 Preoperative Diagnosis: Cholecystitis Postoperative Diagnosis: Gangrenous cholecystitis Adhesions Incisional hernia Procedure(s) Performed: Diagnostic laparoscopy Open cholecystectomy Repair of small bowel Lyse adhesions Repair of incisional hernia Anesthesia: DAYNA Surgeon: Daryl Womack Estimated Blood Loss (ml): 50 Pathology: other (Gallbladder) Condition: stable Disposition: PACU Description of Procedure: The patient was placed on the operating table. The patient received a general endotracheal tube anesthesia. His abdomen is prepped and draped you sterile fashion. The patient had a midline scar. Due to this the Veress needle is placed in left upper quadrant. And then the abdomen insufflated. After adequate deflation the Cor[place] Was entered using the optical trocar. There were adhesions located along the midline. A another 5 mm trocars placed in the left lower quadrant and then the adhesions were lysed using the harmonic scissors. Next a 5 mm trocars placed at the umbilicus and then a 8 mm trocars placed in the epigastric position. Two 5 mm trocars placed in the right lateral and right mid abdomen position. The patient is placed in the reverse Trendelenburg right side up position. The omentum was covering the gallbladder. It was adhesed to the gallbladder. Using the harmonic scissors the omentum was freed. The gallbladder had tyra gangrene of the gallbladder. There was necrosis of the almost the entire anterior wall of the gallbladder. Due to the inflammation it was said to convert the procedure to an open procedure. The trocars were withdrawn. The skin was incised in the midline. And then the abdominal cavity is entered. There was an incisional hernia located at the superior portion of his old midline scar. There were adhesions to the small bowel to the previous midline scar. These were lysed with sharp dissection. During the lysis of adhesions there was a small bowel enterotomy made. This was repaired with 3-0 GI silk suture. The gallbladder was visualized. The Bookwalter tract placed the wound. The ga llbladder was dissected in a dome down fashion use electrocautery and blunt finger dissection. Once the gallbladder was freed. The cystic artery and cystic duct were visualized. Using a 2-0 PDS suture at the cystic artery and duct were ligated together and then a tie knot device was placed. After that was ligated. Another suture ligation was performed using 2-0 Ethibond suture. The gallbladder was then cut on the neck of the gallbladder. The gallbladder was withdrawn. The gallbladder was grossly gangrenous. The abdomen is irrigated there is no bleeding seen. The liver bed was made for hemostasis. There is no bleeding seen. Several small spots were coagulated. A JUNIOR drain was placed in the gallbladder fossa and brought out through a lateral stab incision. The fascia was then closed with looped number PDS suture. Skin was closed li. Patient tolerated well. Sent to recovery room in stable condition.
[2024-05-09 13:09] LABS: Glucose,Whole Blood 179 mg/dL (70-110)
[2024-05-09] MEDS: HYDROmorphone 0.5 MG/0.5 ML SYRINGE IVP STA (13:46)
[2024-05-09] MEDS: LACTATED RINGERS 1,000 ML IV SCH (14:32)
[2024-05-09] MEDS ORDERED: RX INFO: IV CONTRAST WAS GIVEN 1 EACH MISC MISCELLANE PRN (15:06)
[2024-05-09] MEDS: NALOXONE 0.4 MG/ML 1 ML VIAL IV PRN (15:11)
[2024-05-09 16:44] LABS: Glucose,Whole Blood 177 mg/dL (70-110)
[2024-05-09] MEDS: HYDROcodone/APAP 5-325MG 1 EACH TAB PO PRN (17:27)
[2024-05-09] MEDS: DOCUSATE 100 MG CAP PO SCH (20:05)
[2024-05-09 20:55] LABS: Glucose,Whole Blood 230 mg/dL (70-110)
[2024-05-09] MEDS ORDERED: DEXTROSE 50% SYRINGE 50 ML IVP PRN ×2 (22:04)
[2024-05-09] MEDS: METOPROLOL TARTRATE 25 MG TAB PO SCH (22:27)
[2024-05-09] MEDS: ATORVASTATIN 40 MG TAB PO SCH (22:27)
[2024-05-10 06:12] LABS: Glucose,Whole Blood 203 mg/dL (70-110)
[2024-05-10] MEDS: INSULIN LISPRO (HumaLOG) 100 UNIT/ML 10 mL VL SQ SCH (07:04)
[2024-05-10] MEDS: ONDANSETRON 4 MG/2 ML VIAL IVP PRN (07:04)
[2024-05-10] MEDS: PANTOPRAZOLE 40 MG/10 ML VIAL IVP SCH (07:53)
[2024-05-10] MEDS: ACETAMINOPHEN TAB 325 MG TAB PO PRN (07:58)
[2024-05-10] MEDS: DAPAGLIFLOZIN PROPANEDIOL 5 MG TABLET PO SCH (07:59)
[2024-05-10] MEDS: ENOXAPARIN 40 MG/0.4 ML SYRINGE SQ SCH (07:59)
[2024-05-10 10:28] LABS: Basophils # (A) 0.02 X 10*3/uL (0.00-0.10); Basophils % (A) 0.2 %; Eosinophils # (A) 0 X 10*3/uL (0.04-0.35); Eosinophils % (A) 0 %; HCT 43.5 % (39.6-50.0); HGB 13.7 g/dL (13.0-17.0); Lymphocytes # (A) 1.03 X 10*3/uL (0.90-5.00); Lymphocytes % (A) 7.7 %; MCHC 31.5 g/dL (32.0-37.0); MCV 92.2 FL (80.0-97.0); Mean Platelet Volume 11.3 FL (9.5-12.2); Monocytes % (A) 8.3 %; NRBC Per 100 WBC 0 X 10*3/uL (0.00-0.01); Neutrophils # (A) 11.11 X 10*3/uL (1.80-7.70); Neutrophils % (A) 83.3 %; Platelet Count 163 X 10*3/uL (140-440); RBC 4.72 X 10*6/uL (4.40-5.60); RDW 14.1 % (11.5-14.5); WBC 13.32 X 10*3/uL (4.50-10.00)
[2024-05-10] MEDS: HYDROcodone/APAP 5-325MG 1 EACH TAB PO PRN (10:37)
[2024-05-10 10:53] LABS: ALT 38 U/L (10-49); AST 57 U/L (14-35); Albumin 3.5 g/dL (3.8-4.9); Albumin/Globulin Ratio 1.67 Ratio (1.60-3.17); Alkaline Phosphatase 46 U/L (41-126); BUN/Creat Ratio 10.12 Ratio (12.00-20.00); Blood Urea Nitrogen 17.2 mg/dL (9.0-27.0); Calcium 8.4 mg/dL (8.7-10.3); Carbon Dioxide 25.9 mmol/L (21.6-31.8); Chloride 105 mmol/L (96-109); Globulin 2.1 g/dL (1.6-3.3); Glucose 170 mg/dL (70-110); Phosphorus 3.1 mg/dL (2.4-5.1); Potassium 4.9 mmol/L (3.5-5.5); Sodium 142 mmol/L (135-145); Total Bilirubin 0.8 mg/dL (0.3-1.2); Total Protein 5.6 g/dL (6.2-8.2)
[2024-05-10 11:08] LABS: Glucose,Whole Blood 154 mg/dL (70-110)
--- NOTE | 2024-05-10 12:55 | P.PN ---
Subjective Progress Note Date: 05/10/24 SURGICAL PROGRESS NOTE CHIEF COMPLAINT: Gangrenous cholecystitis HISTORY OF PRESENT ILLNESS: Patient is postop day 1 status post diagnostic laparoscopy, open cholecystectomy repair of small bowel, lysis of adhesions and repair of incisional hernia. Patient reports his pain is controlled. He denies any nausea or vomiting. Denies any flatus. Denies any difficulty urinating. Afebrile. WBC is down from 14-13 AST 57 PHYSICAL EXAM: VITAL SIGNS: Reviewed. GENERAL: Well-developed in no acute distress. ABDOMEN: Soft. Mildly distended. Mild tenderness to palpation at incision sites. Prevena wound VAC in place NEUROLOGIC: Alert and oriented. Cranial nerves II through XII grossly intact. ASSESSMENT: 1. Gangrenous cholecystitis, adhesions, incisional hernia 2. Difficulty with speech postoperatively likely due to pain medication. Symptoms improved after Narcan. Dilaudid was discontinued. PLAN: -Continue clear liquid diet -Encourage patient to increase activity level -Continue pain management with oral medications -Neurology consulted regarding difficulty with speech postoperatively. -Continue antibiotic -Repeat CBC in a.m. -GI prophylaxis Protonix and DVT prophylaxis Lovenox Physician Claim Approver note has been reviewed by physician. Signing provider agrees with the documented findings, assessment, and plan of care. Objective - Vital Signs Vital signs: Vital Signs Temp 98.5 F 05/10/24 07:00 Pulse 89 05/10/24 07:00 Resp 18 05/10/24 10:57 BP 147/70 05/10/24 07:00 Pulse Ox 93 L 05/10/24 07:00 FiO2 Intake & Output 05/09/24 05/10/24 05/10/24 18:59 06:59 18:59 Intake Total 1000 100 Output Total 300 1000 900 Balance 700 -1000 -800 Weight 86.183 kg Intake: IV 1000 Oral 100 Output: Drainage 50 50 Abdomen 50 50 Urine 200 950 850 Estimated Blood Loss 100 Other: Voiding Method Urinal Urinal # Voids 2 2 - Labs CBC & Chem 7: 05/10/24 03:27 05/10/24 03:27 Labs: Abnormal Lab Results - Last 24 Hours (Table) 05/09/24 05/09/24 05/09/24 Range/Units 13:07 16:42 20:53 WBC (4.50-10.00) X 10*3/uL MCHC (32.0-37.0) g/dL Immature Gran # (0.00-0.04) X 10*3/uL Neutrophils # (1.80-7.70) X 10*3/uL Monocytes # (0.20-1.00) X 10*3/uL Eosinophils # (0.04-0.35) X 10*3/uL Creatinine (0.6-1.5) mg/dL Est GFR (CKD-EPI) (>=60) BUN/Creatinine Ratio (12.00-20.00) Ratio Glucose (70-110) mg/dL POC Glucose (mg/dL) 179 H 177 H 230 H (70-110) mg/dL Hemoglobin A1c (<=6.0) % Calcium (8.7-10.3) mg/dL AST (14-35) U/L Total Protein (6.2-8.2) g/dL Albumin (3.8-4.9) g/dL 05/10/24 05/10/24 05/10/24 Range/Units 03:27 03:27 03:27 WBC 13.32 H (4.50-10.00) X 10*3/uL MCHC 31.5 L (32.0-37.0) g/dL Immature Gran # 0.06 H (0.00-0.04) X 10*3/uL Neutrophils # 11.11 H (1.80-7.70) X 10*3/uL Monocytes # 1.10 H (0.20-1.00) X 10*3/uL Eosinophils # 0 L (0.04-0.35) X 10*3/uL Creatinine 1.7 H (0.6-1.5) mg/dL Est GFR (CKD-EPI) 40 L (>=60) BUN/Creatinine Ratio 10.12 L (12.00-20.00) Ratio Glucose 170 H (70-110) mg/dL POC Glucose (mg/dL) (70-110) mg/dL Hemoglobin A1c 7.9 H (<=6.0) % Calcium 8.4 L (8.7-10.3) mg/dL AST 57 H (14-35) U/L Total Protein 5.6 L (6.2-8.2) g/dL Albumin 3.5 L (3.8-4.9) g/dL 05/10/24 05/10/24 Range/Units 06:10 11:07 WBC (4.50-10.00) X 10*3/uL MCHC (32.0-37.0) g/dL Immature Gran # (0.00-0.04) X 10*3/uL Neutrophils # (1.80-7.70) X 10*3/uL Monocytes # (0.20-1.00) X 10*3/uL Eosinophils # (0.04-0.35) X 10*3/uL Creatinine (0.6-1.5) mg/dL Est GFR (CKD-EPI) (>=60) BUN/Creatinine Ratio (12.00-20.00) Ratio Glucose (70-110) mg/dL POC Glucose (mg/dL) 203 H 154 H (70-110) mg/dL Hemoglobin A1c (<=6.0) % Calcium (8.7-10.3) mg/dL AST (14-35) U/L Total Protein (6.2-8.2) g/dL Albumin (3.8-4.9) g/dL
--- NOTE | 2024-05-10 13:09 | CT ---
EXAMINATION TYPE: CT brain wo con DATE OF EXAM: 05/10/2024 12:34 PM COMPARISON: MRI 06/25/2020 CLINICAL INDICATION: Male, 83 years old with history of speech difficulty, Speech difficulty, recent sx TECHNIQUE: CT of the brain is performed utilizing 3 mm thick sections through the posterior fossa and 3 mm thick sections through the remaining calvarium. Study is performed within 24 hours of arrival to the hospital. Contrast used: mL of , (none if empty) CT DLP: 1183.4 mGycm, Automated exposure control for dose reduction was used. FINDINGS: No abnormal hyperdensity is present to suggest an acute intracranial hemorrhage. No mass lesion is evident. No acute infarcts are evident. Periventricular white matter hypodensity is present, likely on the bas is of chronic white matter ischemic changes. Ventricles and sulci are appropriate for the patient age. Paranasal sinuses and mastoid air cells within the [id number] are clear. IMPRESSION: 1. No acute intracranial process. Follow up MRI can be performed as clinically indicated. 2. Chronic appearing periventricular white matter ischemic changes. [facility], , 05/10/2024 1:06 PM
--- NOTE | 2024-05-10 13:28 | P.CNNES ---
History of Present Illness Consult date: 05/10/24 Requesting physician: Aleisha Moss Reason for Consult: difficulty with speech History of Present Illness: This is a 83 year-old gentleman who presents to the emergency department for abdominal pain. Yesterday he had diagnostic laproscopy cholecystectomy. Neurology is consulted for speech difficulty. Per the nurse, the patient received sedation for the surgery and when he came to floor he had speech difficulty but was following commands. Also yesterday while on the floor he recieved Diluadid. So he received Narcan and his speech difficulty resolved. It lasted 15 minutes.. Patient does not recall episode. He denies any focal weakness, speech difficulty currently, visual changes. It seems patient has acute on chronic kidney insufficiency. Per nurse he is doing drastically better post Narcan. He denies history of stroke. Some of the work-up during this hospital visit consisted of: I reviewed the labs work-up. CT head: No acute intracranial process. Chronic appearing periventricular white matter ischemic changes. I personally reviewed CT and agree with report. Review of Systems As per HPI. Past Medical History Past Medical History: Asthma, Coronary Artery Disease (CAD), Cancer, Diabetes Mellitus, Hyperlipidemia, Hypertension, Myocardial Infarction ([place]), Osteoarthritis (OA), Prostate Disorder Additional Past Medical History / Comment(s): PROSTATE CANCER. colon cancer, Last Myocardial Infarction Date:: 06/30/2015 History of Any Multi-Drug Resistant Organisms: None Reported Past Surgical History: Coronary Bypass/CABG, Heart Catheterization, Heart Catheterization With Stent, Prostate Surgery Additional Past Surgical History / Comment(s): TRIPLE VESSEL CABG-06/30/2015, COLONOSCOPY, two cardiac stents Past Anesthesia/Blood Transfusion Reactions: No Reported Reaction Date of Last Stent Placement:: 2004 Past Psychological History: No Psychological Hx Reported Smoking Status: Former smoker Past Alcohol Use History: None Reported Past Drug Use History: None Reported - Past Family History Father Family Medical History: CVA/TIA Mother Family Medical History: Cancer Additional Family Medical History / Comment(s): COLON CANCER Medications and Allergies Home Medications Medication Instructions Recorded Confirmed Type Aspirin EC [Ecotrin Low Dose] 81 mg PO DAILY #60 tablet. 12/19/14 05/09/24 Rx Ergocalciferol [Vitamin D2 (1250 1,250 mcg PO Q7D 12/10/20 05/09/24 History Mcg = 44085 Iu)] Metoprolol Tartrate [Lopressor] 25 mg PO BID 12/10/20 05/09/24 History hydroCHLOROthiazide [Hydrodiuril] 25 mg PO DAILY 12/10/20 05/09/24 History Atorvastatin [Lipitor] 40 mg PO DAILY 05/09/24 05/09/24 History Empagliflozin [Jardiance] 10 mg PO DAILY 05/09/24 05/09/24 History Losartan Potassium 100 mg PO DAILY 05/09/24 05/09/24 History glyBURIDE [Diabeta] 5 mg PO BID 05/09/24 05/09/24 History sitaGLIPtin [Januvia] 100 mg PO DAILY 05/09/24 05/09/24 History Allergies Allergy/AdvReac Type Severity Reaction Status Date / Time bee venom protein (honey bee) Allergy Rash/Hives Verified 05/09/24 09:52 tree nut [Nut] Allergy Rash/Hives Verified 05/09/24 09:52 Physical Examination - Vital Signs Vital Signs: Vital Signs Temp Pulse Resp BP Pulse Ox 05/10/24 10:57 18 05/10/24 07:00 98.5 F 89 18 147/70 93 L 05/10/24 02:19 99.1 F 87 17 132/77 97 05/09/24 20:12 98.0 F 80 16 156/86 94 L 05/09/24 20:06 80 16 05/09/24 16:11 86 125/76 97 05/09/24 15:56 85 125/78 97 05/09/24 15:41 85 138/83 97 05/09/24 15:26 87 139/84 96 05/09/24 15:12 88 121/68 93 L 05/09/24 15:11 14 05/09/24 14:57 89 121/75 93 L 05/09/24 14:55 99.1 F 92 16 124/68 93 L 05/09/24 14:30 87 17 123/67 97 05/09/24 14:15 88 18 162/67 97 05/09/24 14:00 87 17 130/68 97 05/09/24 13:45 84 18 145/75 94 L 05/09/24 13:30 83 16 151/88 96 Intake and Output 05/09/24 05/10/24 05/10/24 22:59 06:59 14:59 Intake Total 100 Output Total 200 1000 900 Balance -200 -1000 -800 Intake: Oral 100 Output: Drainage 50 50 Abdomen 50 50 Urine 200 950 850 Other: Voiding Method Urinal Urinal # Voids 1 2 2 GENERAL: The patient is sitting in a recliner chair and is not in acute distre ss. NEUROLOGICAL: Higher mental function: The patient is awake, alert, oriented to self, place and time. Patient is following commands. No aphasia and no neglect. Cranial nerves: The pupils are round, equal and reactive to light and accommodation. Visual herron are full to confrontation throughout. Extraocular movement is intact no nystagmus is noted. Facial sensation is normal to touch throughout. The facial strength is normal throughout. Hearing is normal bilaterally to hand rub. Tongue is midline and moved [id number] without any difficulty. No dysarthria is noted. Shoulder shrug is normal bilaterally. Motor: The strength is 5 over 5 throughout. Normal tone and bulk. Cerebellum: Normal finger to nosebilaterally. Sensation: Sensation is normal to touch throughout. Plantars are downgoing bilaterally. Results - Laboratory Findings CBC and BMP: 05/10/24 03:27 05/10/24 03:27 Abnormal Lab Findings: Abnormal Labs 05/09/24 05/09/24 05/09/24 06:14 07:08 07:40 WBC 14.3 H MCHC Plt Count 148 L Immature Gran # Neutrophils # 12.7 H Lymphocytes # 0.8 L Monocytes # Eosinophils # Carbon Dioxide 21 L Creatinine 1.54 H Est GFR (CKD-EPI) BUN/Creatinine Ratio Glucose 184 H POC Glucose (mg/dL) Hemoglobin A1c Calcium Total Bilirubin 1.6 H AST Total Protein Albumin Urine Glucose (UA) 4+ H Urine Ketones 3+ H 05/09/24 05/09/24 05/09/24 10:06 13:07 16:42 WBC MCHC Plt Count Immature Gran # Neutrophils # Lymphocytes # Monocytes # Eosinophils # Carbon Dioxide Creatinine Est GFR (CKD-EPI) BUN/Creatinine Ratio Glucose POC Glucose (mg/dL) 181 H 179 H 177 H Hemoglobin A1c Calcium Total Bilirubin AST Total Protein Albumin Urine Glucose (UA) Urine Ketones 05/09/24 05/10/24 05/10/24 20:53 03:27 03:27 WBC 13.32 H MCHC 31.5 L Plt Count Immature Gran # 0.06 H Neutrophils # 11.11 H Lymphocytes # Monocytes # 1.10 H Eosinophils # 0 L Carbon Dioxide Creatinine 1.7 H Est GFR (CKD-EPI) 40 L BUN/Creatinine Ratio 10.12 L Glucose 170 H POC Glucose (mg/dL) 230 H Hemoglobin A1c Calcium 8.4 L Total Bilirubin AST 57 H Total Protein 5.6 L Albumin 3.5 L Urine Glucose (UA) Urine Ketones 05/10/24 05/10/24 05/10/24 03:27 06:10 11:07 WBC MCHC Plt Count Immature Gran # Neutrophils # Lymphocytes # Monocytes # Eosinophils # Carbon Dioxide Creatinine Est GFR (CKD-EPI) BUN/Creatinine Ratio Glucose POC Glucose (mg/dL) 203 H 154 H Hemoglobin A1c 7.9 H Calcium Total Bilirubin AST Total Protein Albumin Urine Glucose (UA) Urine Ketones Assessment and Plan Assessment: This is a 83 y/o gentleman who presents for abdominal pain. Yesterday he had diagnostic laproscopy cholecystectomy. The patient received sedation for the surgery and when he came to floor he received Dilaudid then he had speech difficulty but was following commands. When he received Narcan patient was back to baseline. Episode of speech difficulty/expressive aphasia likely due to medication induced (Dilaudid in addition him receiving sedation for surgery). CT head is negative. I feel less likely TIA but cannot be rule out. Plan: Patient and his family members (daughter) do not want to pursue with further stroke work-up. But if he has any further speech difficulty or any new neurological work-up then recommend obtain rest of stroke work-up. Will defer the rest management to primary team and other specialist. There is no further neurological work-up. Will sign off. Please reconsult if needed. Time with Patient: Greater than 30
--- NOTE | 2024-05-10 14:10 | XR ---
EXAMINATION TYPE: XR chest 1V portable DATE OF EXAM: 05/10/2024 2:02 PM COMPARISON: Chest x-ray January 23, 2024 CLINICAL INDICATION: Male, 83 years old with history of shortness of breath, TECHNIQUE: Single frontal view of the chest is obtained. FINDINGS: Overlying sternal wires and mediastinal clips are redemonstrated. Persistent cardiomegaly. Patchy bibasilar opacities. Upper lungs are clear. The osseous structures are intact. IMPRESSION: Cardiomegaly with bibasilar atelectasis and/or less likely acute infiltrates. [facility], , 05/10/2024 2:08 PM
[2024-05-10] MEDS: PIPERACILLIN-TAZOBACTAM 3.375 GM in SODIUM CHLORIDE 0.9% 100 ML IVPB SCH (14:50)
[2024-05-10] MEDS: FUROSEMIDE 10 MG/ML 4 ML VIAL IV STA (16:25)
[2024-05-10 17:11] LABS: Glucose,Whole Blood 121 mg/dL (70-110)
[2024-05-10 22:11] LABS: Glucose,Whole Blood 140 mg/dL (70-110)
[2024-05-10] MEDS: MAG HYDROX/AL HYDROX/SIMETH 30 ML CUP PO PRN (23:14)
[2024-05-11] MEDS: METOCLOPRAMIDE 5 MG/ML 2 ML VIAL IVP SCH (02:38)
--- NOTE | 2024-05-11 06:03 | P.CONS ---
History of Present Illness - Reason for Consult Consult date: 05/10/24 Medical management, status post cholecystectomy - History of Present Illness This is a pleasant 83-year-old male who is admitted under general surgery services status post cholecystectomy which was noted to be gangrenous along with incisional hernia repair and lysis of adhesions. Patient follows with Dr. Gutierrez in the outpatient setting with a significant past medical history of asthma, coronary artery disease, prostate and colon cancer, diabetes mellitus, hyperlipidemia, hypertension, previous myocardial infarction with CABG and previous stenting, and osteoarthritis. Patient is a former smoker denies any other illicit drugs or alcohol use. Patient is status post surgical intervention and did have an episode of being aphasic and unable to speak almost immediately after Dilaudid was given and postop. Per general surgery neurology was consulted and CT brain was ordered and negative. Recommended to nursing staff to give Narcan which was administered and patient symptoms resolved. Recommend avoiding Dilaudid. REVIEW OF SYSTEMS: CONSTITUTIONAL: No fever, no malaise, no fatigue. HEENT: No recent visual problems or hearing problems. Denied any sore throat. CARDIOVASCULAR: No chest pain, orthopnea, PND, no palpitations, no syncope. PULMONARY: Reports of shortness of breath, no cough, no hemoptysis. GASTROINTESTINAL: No diarrhea, reports occasional nausea, no vomiting, reports abdominal pain and discomfort. NEUROLOGICAL: No headaches, no weakness, no numbness. HEMATOLOGICAL: Denies any bleeding or petechiae. GENITOURINARY: Denies any burning micturition, frequency, or urgency. MUSCULOSKELETAL/RHEUMATOLOGICAL: Denies any joint pain, swelling, or any muscle pain. ENDOCRINE: Denies any polyuria or polydipsia. The rest of the 14-point review of systems is negative. PHYSICAL EXAMINATION: GENERAL: The patient is alert and oriented x3, not in any acute distress. Well developed, elderly appearing, obese HEENT: Pupils are round and equally reacting to light. EOMI. No scleral icterus. No conjunctival pallor. Normocephalic, atraumatic. No pharyngeal erythema. No thyromegaly. CARDIOVASCULAR: S1 and S2 muffled PULMONARY: Diminished breath sounds bilaterally otherwise chest is clear to auscultation, a few faint crackles noted at the bases. ABDOMEN: Soft, tender, mildly distended, normoactive bowel sounds. No palpable organomegaly. Binder noted MUSCULOSKELETAL: No joint swelling or deformity. EXTREMITIES: No cyanosis, clubbing, or pedal edema. NEUROLOGICAL: Gross neurological examination did not reveal any focal deficits. Diffusely weak SKIN: No rashes. Assessment: Status post cholecystectomy for gangrenous cholecystitis along with lysis of adhesions and incisional hernia repair Brief period of difficulty in speaking with aphasia, TIA versus CVA unlikely, likely medication effect from Dilaudid as symptoms started almost immediately after Dilaudid was given and resolved status post Narcan administration History of asthma, not in exacerbation History of coronary artery disease with previous CABG and stenting Diabetes mellitus, type II Hyperlipidemia Hypertension Osteoarthritis Prostate and colon cancer Obesity with a BMI 31.6 GI prophylaxis DVT prophylaxis Full code Plan: Patient admitted under surgery status post surgical intervention with cholecyste ctomy for gangrenous gallbladder along with lysis of adhesions and incisional hernia repair. Patient having some mild crackles noted at the bases, will give a dose of Lasix and chest x-ray ordered Encourage incentive spirometer use at least 10 times every hour while awake Recommend PT/OT therapy for evaluation and sitting up in the chair more often Diet to be advanced per surgery Recommend repeat labs to monitor kidney functions and electrolytes. Replace electrolytes per protocol Neurology had been consulted for the acute aphasia episode and underwent CT brain which was negative recommending no further workup at this time. Strongly recommend avoiding Dilaudid and IV narcotics in this patient. We will continue to follow with general surgery. Thank you kindly for this consultation. The impression and plan of care has been dictated by Brandy Murphy, Nurse Practitioner as directed. Dr. Fabien MD I have performed a history and examination and MDM of this patient, discussed the same with the dictator, and agree with the dictator's assessment and plan as written ,documented as a scribe. Based on total visit time, I have performed more than 50% of the visit. Past Medical History Past Medical History: Asthma, Coronary Artery Disease (CAD), Cancer, Diabetes Mellitus, Hyperlipidemia, Hypertension, Myocardial Infarction ([place]), Osteoarthritis (OA), Prostate Disorder Additional Past Medical History / Comment(s): PROSTATE CANCER. colon cancer, Last Myocardial Infarction Date:: 06/30/2015 History of Any Multi-Drug Resistant Organisms: None Reported Past Surgical History: Coronary Bypass/CABG, Heart Catheterization, Heart Catheterization With Stent, Prostate Surgery Additional Past Surgical History / Comment(s): TRIPLE VESSEL CABG-06/30/2015, COLONOSCOPY, two cardiac stents Past Anesthesia/Blood Transfusion Reactions: No Reported Reaction Date of Last Stent Placement:: 2004 Past Psychological History: No Psychological Hx Reported Smoking Status: Former smoker Past Alcohol Use History: None Reported Past Drug Use History: None Reported - Past Family History Father Family Medical History: CVA/TIA Mother Family Medical History: Cancer Additional Family Medical History / Comment(s): COLON CANCER Medications and Allergies Home Medications Medication Instructions Recorded Confirmed Type Aspirin EC [Ecotrin Low Dose] 81 mg PO DAILY #60 tablet. 12/19/14 05/09/24 Rx Ergocalciferol [Vitamin D2 (1250 1,250 mcg PO Q7D 12/10/20 05/09/24 History Mcg = 93325 Iu)] Metoprolol Tartrate [Lopressor] 25 mg PO BID 12/10/20 05/09/24 History hydroCHLOROthiazide [Hydrodiuril] 25 mg PO DAILY 12/10/20 05/09/24 History Atorvastatin [Lipitor] 40 mg PO DAILY 05/09/24 05/09/24 History Empagliflozin [Jardiance] 10 mg PO DAILY 05/09/24 05/09/24 History Losartan Potassium 100 mg PO DAILY 05/09/24 05/09/24 History glyBURIDE [Diabeta] 5 mg PO BID 05/09/24 05/09/24 History sitaGLIPtin [Januvia] 100 mg PO DAILY 05/09/24 05/09/24 History Allergies Allergy/AdvReac Type Severity Reaction Status Date / Time bee venom protein (honey bee) Allergy Rash/Hives Verified 05/09/24 09:52 tree nut [Nut] Allergy Rash/Hives Verified 05/09/24 09:52 Physical Exam Vitals: Vital Signs Temp Pulse Pulse Pulse Resp BP BP 05/10/24 07:00 98.5 F 89 18 147/70 05/10/24 02:19 99.1 F 87 17 132/77 05/09/24 20:12 98.0 F 80 16 156/86 05/09/24 20:06 80 16 05/09/24 16:11 86 125/76 05/09/24 15:56 85 125/78 05/09/24 15:41 85 138/83 05/09/24 15:26 87 139/84 05/09/24 15:12 88 121/68 05/09/24 15:11 14 05/09/24 14:57 89 121/75 05/09/24 14:55 99.1 F 92 16 124/68 05/09/24 14:30 87 17 123/67 05/09/24 14:15 88 18 162/67 05/09/24 14:00 87 17 130/68 05/09/24 13:45 84 18 145/75 05/09/24 13:30 83 16 151/88 05/09/24 13:15 80 17 155/78 05/09/24 12:59 98.3 F 85 16 162/99 05/09/24 10:53 98.6 F 96 16 139/73 05/09/24 09:59 98.6 F 96 16 139/73 05/09/24 09:16 92 18 138/78 Pulse Ox 05/10/24 07:00 93 L 05/10/24 02:19 97 05/09/24 20:12 94 L 05/09/24 20:06 05/09/24 16:11 97 05/09/24 15:56 97 05/09/24 15:41 97 05/09/24 15:26 96 05/09/24 15:12 93 L 05/09/24 15:11 05/09/24 14:57 93 L 05/09/24 14:55 93 L 05/09/24 14:30 97 05/09/24 14:15 97 05/09/24 14:00 97 05/09/24 13:45 94 L 05/09/24 13:30 96 05/09/24 13:15 100 05/09/24 12:59 100 05/09/24 10:53 96 05/09/24 09:59 96 05/09/24 09:16 98 Intake and Output 05/09/24 05/10/24 05/10/24 22:59 06:59 14:59 Output Total 200 1000 Balance -200 -1000 Output: Drainage 50 Abdomen 50 Urine 200 950 Other: Voiding Method Urinal # Voids 1 2 Results CBC & Chem 7: 05/10/24 03:27 05/10/24 03:27 Labs: Abnormal Lab Results - Last 24 Hours (Table) 05/09/24 05/09/24 05/09/24 Range/Units 10:06 13:07 16:42 POC Glucose (mg/dL) 181 H 179 H 177 H (70-110) mg/dL 05/09/24 05/10/24 Range/Units 20:53 06:10 POC Glucose (mg/dL) 230 H 203 H (70-110) mg/dL
[2024-05-11 06:42] LABS: Glucose,Whole Blood 179 mg/dL (70-110)
[2024-05-11 08:44] LABS: Basophils # (A) 0.04 X 10*3/uL (0.00-0.10); Basophils % (A) 0.4 %; Eosinophils # (A) 0.03 X 10*3/uL (0.04-0.35); Eosinophils % (A) 0.3 %; HCT 44.2 % (39.6-50.0); HGB 14.1 g/dL (13.0-17.0); Lymphocytes # (A) 0.75 X 10*3/uL (0.90-5.00); Lymphocytes % (A) 8.4 %; MCHC 31.9 g/dL (32.0-37.0); MCV 90.9 FL (80.0-97.0); Mean Platelet Volume 11.7 FL (9.5-12.2); Monocytes # (A) 0.74 X 10*3/uL (0.20-1.00); Monocytes % (A) 8.3 %; NRBC Per 100 WBC 0 X 10*3/uL (0.00-0.01); Neutrophils # (A) 7.31 X 10*3/uL (1.80-7.70); Neutrophils % (A) 82.3 %; Platelet Count 153 X 10*3/uL (140-440); RBC 4.86 X 10*6/uL (4.40-5.60); RDW 14.3 % (11.5-14.5)
[2024-05-11 08:48] LABS: Blood Urea Nitrogen 22.8 mg/dL (9.0-27.0); Calcium 8.9 mg/dL (8.7-10.3); Carbon Dioxide 25.2 mmol/L (21.6-31.8); Chloride 102 mmol/L (96-109); Glucose 188 mg/dL (70-110); Potassium 4.8 mmol/L (3.5-5.5); Sodium 140 mmol/L (135-145)
[2024-05-11 08:49] LABS: Magnesium 2.3 mg/dL (1.5-2.4)
--- NOTE | 2024-05-11 11:31 | P.PN ---
Subjective Progress Note Date: 05/11/24 SURGICAL PROGRESS NOTE CHIEF COMPLAINT: Gangrenous cholecystitis HISTORY OF PRESENT ILLNESS: Patient is postop day #2 status post diagnostic laparoscopy, open cholecystectomy repair of small bowel, lysis of adhesions and repair of incisional hernia. Patient had nausea during the night. She was made NPO. He reports feeling better today. Denies any bowel activity. JUNIOR drain 30 mL serosanguineous output. Afebrile. WBC 13.32 down to 8.9 PHYSICAL EXAM: VITAL SIGNS: Reviewed. GENERAL: Well-developed in no acute distress. ABDOMEN: Soft. Mildly distended. Mild tenderness to palpation at incision sites. Prevena wound VAC in place NEUROLOGIC: Alert and oriented. Cranial nerves II through XII grossly intact. ASSESSMENT: 1. Gangrenous cholecystitis, adhesions, incisional hernia 2. Difficulty with speech postoperatively likely due to pain medication and anesthesia. Symptoms improved after Narcan. Dilaudid was discontinued. Patient seen by neurology service. 3. Ileus PLAN: -Restart clear liquid diet. Educated patient to go slow with diet -Encourage patient to increase activity level -Continue pain management -Continue antibiotic -Courage patient to use incentive spirometer -Anticipate discharge Tuesday -GI prophylaxis Protonix and DVT prophylaxis Lovenox Physician Crown Attacher note has been reviewed by physician. Signing provider agrees with the documented findings, assessment, and plan of care. Objective - Vital Signs Vital signs: Vital Signs Temp 97.7 F 05/11/24 07:36 Pulse 72 05/11/24 07:36 Resp 16 05/11/24 07:36 BP 114/77 05/11/24 07:36 Pulse Ox 98 05/11/24 07:36 FiO2 Intake & Output 05/10/24 05/11/24 05/11/24 18:59 06:59 18:59 Intake Total 900 540 Output Total 1350 1840 295 Balance -450 -1300 -295 Intake: Oral 900 540 Output: Drainage 100 115 30 Abdomen 100 115 30 Urine 1250 1725 225 Emesis 40 Other: Voiding Method Urinal # Voids 2 - Labs CBC & Chem 7: 05/11/24 05:27 05/11/24 05:27 Labs: Abnormal Lab Results - Last 24 Hours (Table) 05/10/24 05/10/24 05/11/24 Range/Units 17:10 22:08 05:27 MCHC 31.9 L (32.0-37.0) g/dL Lymphocytes # 0.75 L (0.90-5.00) X 10*3/uL Eosinophils # 0.03 L (0.04-0.35) X 10*3/uL Anion Gap (4.00-12.00) mmol/L Creatinine (0.6-1.5) mg/dL Est GFR (CKD-EPI) (>=60) BUN/Creatinine Ratio (12.00-20.00) Ratio Glucose (70-110) mg/dL POC Glucose (mg/dL) 121 H 140 H (70-110) mg/dL 05/11/24 05/11/24 Range/Units 05:27 06:36 MCHC (32.0-37.0) g/dL Lymphocytes # (0.90-5.00) X 10*3/uL Eosinophils # (0.04-0.35) X 10*3/uL Anion Gap 12.80 H (4.00-12.00) mmol/L Creatinine 2.0 H (0.6-1.5) mg/dL Est GFR (CKD-EPI) 33 L (>=60) BUN/Creatinine Ratio 11.40 L (12.00-20.00) Ratio Glucose 188 H (70-110) mg/dL POC Glucose (mg/dL) 179 H (70-110) mg/dL Microbiology - Last 24 Hours (Table) 05/09/24 07:40 Blood Culture - Preliminary Blood
[2024-05-11 11:54] LABS: Glucose,Whole Blood 169 mg/dL (70-110)
[2024-05-11 16:47] LABS: Glucose,Whole Blood 162 mg/dL (70-110)
[2024-05-11 21:15] LABS: Glucose,Whole Blood 138 mg/dL (70-110)
[2024-05-12] MEDS: MELATONIN 5 MG TABLET PO PRN (00:23)
[2024-05-12] MEDS ORDERED: HEPARIN SODIUM 1,000 UN/ML (10ML VL) IV PRN (01:42)
[2024-05-12 01:57] LABS: Glucose,Whole Blood 131 mg/dL (70-110)
[2024-05-12] MEDS: DILTIAZEM 125 MG in SODIUM CHLORIDE 0.9% 100 ML IV SCH (02:14)
[2024-05-12 02:20] LABS: Basophils % (A) 0 %; Eosinophils # (A) 0.2 k/uL (0-0.7); Eosinophils % (A) 2 %; HCT 46.8 % (39.0-53.0); HGB 13.8 gm/dL (13.0-17.5); Hypochromasia Slight; Lymphocytes % (A) 15 %; MCH 28.1 pg (25.0-35.0); MCHC 29.4 g/dL (31.0-37.0); MCV 95.7 fL (80.0-100.0); Mean Platelet Volume 8.4; Monocytes # (A) 0.5 k/uL (0-1.0); Monocytes % (A) 7 %; Neutrophils # (A) 4.6 k/uL (1.3-7.7); Neutrophils % (A) 72 %; Platelet Count 187 k/uL (150-450); RDW 13.9 % (11.5-15.5); WBC 6.4 k/uL (3.8-10.6)
[2024-05-12] MEDS: DILTIAZEM DRIP BOLUS FROM BAG 1 MG SOLN IV ONE ×2 (02:20→08:21)
[2024-05-12 02:37] LABS: Partial Thromboplastin Time 23.7 sec (22.0-30.0)
[2024-05-12] MEDS: ALPRAZolam 0.25 MG TAB PO STA (02:49)
[2024-05-12] MEDS: HEPARIN SOD,PORK IN 0.45% NACL 25,000 UNIT in 0.45% NACL 1 250ML.BAG IV SCH (02:57)
[2024-05-12] MEDS: HEPARIN SODIUM 1,000 UN/ML (10ML VL) IV ONE (02:58)
[2024-05-12 03:38] LABS: African American GFR (CKD) 47 (>60 ml/min/1.73 sqM); Anion Gap 13 mmol/L; Blood Urea Nitrogen 29 mg/dL (9-20); Calcium 8.6 mg/dL (8.4-10.2); Carbon Dioxide 20 mmol/L (22-30); Chloride 102 mmol/L (98-107); Glucose 146 mg/dL (74-99); Non-African American GFR(CKD) 41 (>60 ml/min/1.73 sqM); Potassium 4.6 mmol/L (3.5-5.1); Sodium 135 mmol/L (137-145)
[2024-05-12 06:45] LABS: Glucose,Whole Blood 147 mg/dL (70-110)
--- NOTE | 2024-05-12 07:05 | P.PN ---
Subjective Progress Note Date: 05/11/24 - Reason for Consult Consult date: 05/10/24 Medical management, status post cholecystectomy - History of Present Illness This is a pleasant 83-year-old male who is admitted under general surgery services status post cholecystectomy which was noted to be gangrenous along with incisional hernia repair and lysis of adhesions. Patient follows with Dr. Gutierrez in the outpatient setting with a significant past medical history of asthma, coronary artery disease, prostate and colon cancer, diabetes mellitus, hyperlipidemia, hypertension, previous myocardial infarction with CABG and previous stenting, and osteoarthritis. Patient is a former smoker denies any other illicit drugs or alcohol use. Patient is status post surgical interve ntion and did have an episode of being aphasic and unable to speak almost immediately after Dilaudid was given and postop. Per general surgery neurology was consulted and CT brain was ordered and negative. Recommended to nursing staff to give Narcan which was administered and patient symptoms resolved. Recommend avoiding Dilaudid. 05/11/2024 Patient is seen in follow-up today appears more distended today and reports not feeling well continues with nausea and some vomiting. Patient currently on clear liquids recommend continuing and/or just sips of water and ice chips until improved. Patient reports has not passed gas today and denies any bowel movements. Abdominal binder noted and patient's abdomen is tender on palpation. Concerns for ileus. Patient is afebrile denies chest pain. Encourage incentive spirometer use and strongly recommend sitting up in the chair and getting up and ambulating more frequently. PT/OT therapy consulted Review of systems: Constitutional: No reports of fatigue, fever, or chills Cardiovascular: No reports of chest pain or palpitations Respiratory: No reports of shortness of breath or cough GI: reports of nausea, vomiting, no diarrhea, reports not passing gas and no bowel movement as of yet : No reports of dysuria or retention Neurovascular: reports of generalized weakness All medications have been reviewed the rest of the 14-point review of systems is negative. PHYSICAL EXAMINATION: GENERAL: The patient is alert and oriented x3, appears in mild discomfort. Well developed, elderly appearing, obese HEENT: Pupils are round and equally reacting to light. EOMI. No scleral icterus. No conjunctival pallor. Normocephalic, atraumatic. No pharyngeal erythema. No thyromegaly. CARDIOVASCULAR: S1 and S2 muffled PULMONARY: Diminished breath sounds bilaterally otherwise chest is clear to auscultation, a few faint crackles noted at the bases. ABDOMEN: Soft, tender, mildly distended, more so today, hypoactive bowel sounds. No palpable organomegaly. Binder noted MUSCULOSKELETAL: No joint swelling or deformity. EXTREMITIES: No cyanosis, clubbing, or pedal edema. NEUROLOGICAL: Gross neurological examination did not reveal any focal deficits. Diffusely weak SKIN: No rashes. Assessment: Status post cholecystectomy for gangrenous cholecystitis along with lysis of adhesions and incisional hernia repair Brief period of difficulty in speaking with aphasia, TIA versus CVA unlikely, likely medication effect from Dilaudid as symptoms started almost immediately after Dilaudid was given and resolved status post Narcan administration Abdominal pain with distention, concerns for ileus History of asthma, not in exacerbation History of coronary artery disease with previous CABG and stenting Diabetes mellitus, type II Hyperlipidemia Hypertension Osteoarthritis Prostate and colon cancer Obesity with a BMI 31.6 GI prophylaxis DVT prophylaxis Full code Plan: Patient admitted under surgery status post surgical intervention with ch olecystectomy for gangrenous gallbladder along with lysis of adhesions and incisional hernia repair. Patient having some mild crackles noted at the bases, and was given a dose of Lasix. Chest x-ray with likely atelectasis and strongly encouraged incentive spirometer. Encourage incentive spirometer use at least 10 times every hour while awake Recommend PT/OT therapy for evaluation and sitting up in the chair more often Patient having some increased abdominal distention more so than yesterday with some increased discomfort and hypoactive bowel sounds, concerns for ileus, patient is continued on clear liquids per surgery and recommend ice chips and sips of water if not tolerating diet. Continue antiemetics supportive care Recommend repeat labs to monitor kidney functions and electrolytes. Replace electrolytes per protocol Neurology had been consulted for the acute aphasia episode and underwent CT brain which was negative recommending no further workup at this time. Strongly recommend avoiding Dilaudid and IV narcotics in this patient. We will continue to follow with general surgery. Thank you kindly for this consultation. The impression and plan of care has been dictated by Brandy Murphy, Nurse Practitioner as directed. Dr. Fabien MD I have performed a history and examination and MDM of this patient, discussed the same with the dictator, and agree with the dictator's assessment and plan as written ,documented as a scribe. Based on total visit time, I have performed more than 50% of the visit. Objective - Vital Signs Vital signs: Vital Signs Temp 97.7 F 05/11/24 07:36 Pulse 72 05/11/24 07:36 Resp 16 05/11/24 07:36 BP 114/77 05/11/24 07:36 Pulse Ox 98 05/11/24 07:36 FiO2 Intake & Output 05/10/24 05/11/24 05/11/24 18:59 06:59 18:59 Intake Total 900 540 Output Total 1350 1840 Balance -450 -1300 Intake: Oral 900 540 Output: Drainage 100 115 Abdomen 100 115 Urine 1250 1725 Other: Voiding Method Urinal # Voids 2 - Labs CBC & Chem 7: 05/12/24 01:57 05/12/24 01:57 Labs: Abnormal Lab Results - Last 24 Hours (Table) 05/10/24 05/10/24 05/10/24 Range/Units 03:27 03:27 03:27 WBC 13.32 H (4.50-10.00) X 10*3/uL MCHC 31.5 L (32.0-37.0) g/dL Immature Gran # 0.06 H (0.00-0.04) X 10*3/uL Neutrophils # 11.11 H (1.80-7.70) X 10*3/uL Lymphocytes # (0.90-5.00) X 10*3/uL Monocytes # 1.10 H (0.20-1.00) X 10*3/uL Eosinophils # 0 L (0.04-0.35) X 10*3/uL Anion Gap (4.00-12.00) mmol/L Creatinine 1.7 H (0.6-1.5) mg/dL Est GFR (CKD-EPI) 40 L (>=60) BUN/Creatinine Ratio 10.12 L (12.00-20.00) Ratio Glucose 170 H (70-110) mg/dL POC Glucose (mg/dL) (70-110) mg/dL Hemoglobin A1c 7.9 H (<=6.0) % Calcium 8.4 L (8.7-10.3) mg/dL AST 57 H (14-35) U/L Total Protein 5.6 L (6.2-8.2) g/dL Albumin 3.5 L (3.8-4.9) g/dL 05/10/24 05/10/24 05/10/24 Range/Units 11:07 17:10 22:08 WBC (4.50-10.00) X 10*3/uL MCHC (32.0-37.0) g/dL Immature Gran # (0.00-0.04) X 10*3/uL Neutrophils # (1.80-7.70) X 10*3/uL Lymphocytes # (0.90-5.00) X 10*3/uL Monocytes # (0.20-1.00) X 10*3/uL Eosinophils # (0.04-0.35) X 10*3/uL Anion Gap (4.00-12.00) mmol/L Creatinine (0.6-1.5) mg/dL Est GFR (CKD-EPI) (>=60) BUN/Creatinine Ratio (12.00-20.00) Ratio Glucose (70-110) mg/dL POC Glucose (mg/dL) 154 H 121 H 140 H (70-110) mg/dL Hemoglobin A1c (<=6.0) % Calcium (8.7-10.3) mg/dL AST (14-35) U/L Total Protein (6.2-8.2) g/dL Albumin (3.8-4.9) g/dL 05/11/24 05/11/24 05/11/24 Range/Units 05:27 05:27 06:36 WBC (4.50-10.00) X 10*3/uL MCHC 31.9 L (32.0-37.0) g/dL Immature Gran # (0.00-0.04) X 10*3/uL Neutrophils # (1.80-7.70) X 10*3/uL Lymphocytes # 0.75 L (0.90-5.00) X 10*3/uL Monocytes # (0.20-1.00) X 10*3/uL Eosinophils # 0.03 L (0.04-0.35) X 10*3/uL Anion Gap 12.80 H (4.00-12.00) mmol/L Creatinine 2.0 H (0.6-1.5) mg/dL Est GFR (CKD-EPI) 33 L (>=60) BUN/Creatinine Ratio 11.40 L (12.00-20.00) Ratio Glucose 188 H (70-110) mg/dL POC Glucose (mg/dL) 179 H (70-110) mg/dL Hemoglobin A1c (<=6.0) % Calcium (8.7-10.3) mg/dL AST (14-35) U/L Total Protein (6.2-8.2) g/dL Albumin (3.8-4.9) g/dL Microbiology - Last 24 Hours (Table) 05/09/24 07:40 Blood Culture - Preliminary Blood
[2024-05-12 07:20] LABS: HGB 13.5 gm/dL (13.0-17.5); Hypochromasia Moderate; MCH 28.5 pg (25.0-35.0); MCV 95.1 fL (80.0-100.0); Mean Platelet Volume 8.5; Platelet Count 210 k/uL (150-450); RBC 4.74 m/uL (4.30-5.90); RDW 13.6 % (11.5-15.5); WBC 7.1 k/uL (3.8-10.6)
[2024-05-12] MEDS: METOPROLOL TARTRATE 50 MG TAB PO SCH (08:51)
[2024-05-12] MEDS: ENOXAPARIN 30 MG/0.3 ML SYRINGE SQ SCH (08:51)
[2024-05-12 11:07] LABS: Glucose,Whole Blood 190 mg/dL (70-110)
--- NOTE | 2024-05-12 15:24 | P.CRDCN ---
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 Patient previously followed in the office with Dr. Duarte and Dr. EDELMIRA Munoz however states he has been following with somebody else more recently. Patient presented with abdominal pa in and nausea and found to have cholecystitis and underwent cholecystectomy. Initially patient was in normal sinus rhythm however noted on the floor to be in A-fib with RVR with heart rates in the 130s to 140s. Patient was predominantly asymptomatic and denies any chest pain or pressure. Denies any significant shortness of breath or fatigue. He was started on Cardizem drip with heart rates better controlled in the 70s. EKG showing LVH with strain with T wave inversions. REVIEW OF SYSTEMS At the time of my exam: CONSTITUTIONAL: Denies fever or chills. CARDIOVASCULAR: Denies chest pain, shortness of breath, orthopnea, PND or palpitations. RESPIRATORY: Denies cough. GASTROINTESTINAL: +abdominal pain, no diarrhea, constipation, +nausea no vomiting. MUSCULOSKELETAL: Denies myalgias. NEUROLOGIC: Denies numbness, tingling or weakness. ENDOCRINE: Denies fatigue, weight change, polydipsia or polyurina. GENITOURINARY: Denies burning, hematuria or urgency with micturation. HEMATOLOGIC: Denies history of anemia or bleeding. PHYSICAL EXAMINATION Vital signs reviewed. CONSTITUTIONAL: No apparent distress. HEENT: Head is normocephalic. Pupils are equal, round. Sclerae anicteric. Mucous membranes of the mouth are moist. No JVD. No carotid bruit. CHEST EXAMINATION: Lungs are clear to auscultation. No chest wall tenderness is noted on palpation or with deep breathing. HEART EXAMINATION: Regular rate and rhythm. S1, S2 heard. No murmurs, gallops or rub. ABDOMEN: Soft, nontender. Positive bowel sounds. EXTREMITIES: 2+ peripheral pulses, no lower extremity edema and no calf tendern ess. NEUROLOGIC EXAMINATION: Patient is awake, alert and oriented x3. ASSESSMENT Cholecystitis status postcholecystectomy New onset atrial fibrillation with RVR CAD status post CABG Hypertension Hyperlipidemia History of cardiomyopathy EF 45% Diabetes mellitus Obesity CKD PLAN Patient with A-fib which he is relatively asymptomatic from with heart rates in the 120s to 130s. He is somewhat better controlled on the Cardizem. Discussed rhythm approach however as he is normally in sinus rhythm and patient agreeable. Will place patient on a amiodarone drip and hopeful chemical cardioversion. If heart rates better controlled in the next 24 to 48 hours likely would be stable for discharge home from cardiac standpoint. Continue with heparin drip for now however when cleared by surgery transition to Eliquis 5 mg twice a day. Obtain records from office and if no recent echo we will reevaluate. Past Medical History Past Medical History: Asthma, Coronary Artery Disease (CAD), Cancer, Diabetes Mellitus, Hyperlipidemia, Hypertension, Myocardial Infarction ([place]), Osteoarthritis (OA), Prostate Disorder Additional Past Medical History / Comment(s): PROSTATE CANCER. colon cancer, Last Myocardial Infarction Date:: 06/30/2015 History of Any Multi-Drug Resistant Organisms: None Reported Past Surgical History: Coronary Bypass/CABG, Heart Catheterization, Heart Catheterization With Stent, Prostate Surgery Additional Past Surgical History / Comment(s): TRIPLE VESSEL CABG-06/30/2015, COLONOSCOPY, two cardiac stents Past Anesthesia/Blood Transfusion Reactions: No Reported Reaction Date of Last Stent Placement:: 2004 Past Psychological History: No Psychological Hx Reported Smoking Status: Former smoker Past Alcohol Use History: None Reported Past Drug Use History: None Reported - Past Family History Father Family Medical History: CVA/TIA Mother Family Medical History: Cancer Additional Family Medical History / Comment(s): COLON CANCER Medications and Allergies Home Medications Medication Instructions Recorded Confirmed Type Aspirin EC [Ecotrin Low Dose] 81 mg PO DAILY #60 tablet. 12/19/14 05/09/24 Rx Ergocalciferol [Vitamin D2 (1250 1,250 mcg PO Q7D 12/10/20 05/09/24 History Mcg = 82619 Iu)] Metoprolol Tartrate [Lopressor] 25 mg PO BID 12/10/20 05/09/24 History hydroCHLOROthiazide [Hydrodiuril] 25 mg PO DAILY 12/10/20 05/09/24 History Atorvastatin [Lipitor] 40 mg PO DAILY 05/09/24 05/09/24 History Empagliflozin [Jardiance] 10 mg PO DAILY 05/09/24 05/09/24 History Losartan Potassium 100 mg PO DAILY 05/09/24 05/09/24 History glyBURIDE [Diabeta] 5 mg PO BID 05/09/24 05/09/24 History sitaGLIPtin [Januvia] 100 mg PO DAILY 05/09/24 05/09/24 History Allergies Allergy/AdvReac Type Severity Reaction Status Date / Time bee venom protein (honey bee) Allergy Rash/Hives Verified 05/09/24 09:52 tree nut [Nut] Allergy Rash/Hives Verified 05/09/24 09:52 Physical Exam Vitals: Vital Signs Temp Pulse Pulse Resp BP BP Pulse Ox 05/12/24 14:00 81 8 L 134/75 91 L 05/12/24 13:00 67 20 143/78 91 L 05/12/24 12:00 65 18 126/74 93 L 05/12/24 11:00 67 16 91 L 05/12/24 10:00 63 15 121/95 91 L 05/12/24 09:00 69 16 108/80 87 L 05/12/24 08:00 98.0 F 102 H 18 129/87 92 L 05/12/24 07:00 115 H 19 122/90 93 L 05/12/24 06:00 129 H 18 135/94 94 L 05/12/24 05:00 117 H 17 126/104 94 L 05/12/24 04:00 123 H 19 119/96 92 L 05/12/24 03:00 109 H 22 119/99 95 05/12/24 02:00 97.4 F L 118 H 18 05/12/24 01:32 98.2 F 136 H 16 122/80 95 05/11/24 19:47 98.1 F 85 16 117/63 95 Intake and Output 05/12/24 05/12/24 05/12/24 06:59 14:59 22:59 Intake Total 520 504.667 Output Total 370 600 Balance 150 -95.333 Intake: IV 40 0.9 KVO 40 Intake, IV Titration 24.667 Amount Diltiazem 125 mg In 24.667 Sodium Chloride 0.9% 100 ml @ 15 MG/HR 15 mls/hr IV .Q8H20M [facility] Rx#: [id number] Oral 480 480 Output: Drainage 20 0 Medial Abdomen 0 0 Right ABD 20 Urine 350 600 Other: Voiding Method Bedpan # Voids 1 Weight 90.8 kg Results 05/12/24 05:00 05/12/24 01:57 Coagulation 05/12/24 05/12/24 Range/Units 01:57 09:01 PT 11.0 (10.0-12.5) sec APTT 23.7 52.1 H (22.0-30.0) sec CBC 05/12/24 05/12/24 Range/Units 01:57 05:00 WBC 6.4 7.1 (3.8-10.6) k/uL RBC 4.90 4.74 (4.30-5.90) m/uL Hgb 13.8 13.5 (13.0-17.5) gm/dL Hct 46.8 45.0 (39.0-53.0) % Plt Count 187 210 (150-450) k/uL Comprehensive Metabolic Panel 05/12/24 Range/Units 01:57 Sodium 135 L (137-145) mmol/L Potassium 4.6 (3.5-5.1) mmol/L Chloride 102 (98-107) mmol/L Carbon Dioxide 20 L (22-30) mmol/L BUN 29 H (9-20) mg/dL Creatinine 1.57 H (0.66-1.25) mg/dL Glucose 146 H (74-99) mg/dL Calcium 8.6 (8.4-10.2) mg/dL Current Medications Generic Name Dose Route Start Last Admin Trade Name Freq PRN Reason Stop Dose Admin Acetaminophen 650 mg 05/09/24 12:53 05/10/24 07:58 Acetaminophen Tab 325 Mg Tab PO 650 mg Q6HR PRN Administration Mild Pain or Fever >= 100.5 Hydrocodone Bitart/Acetaminophen 2 each 05/09/24 12:53 05/11/24 17:49 Hydrocodone/Apap 5-325mg 1 Each Tab PO 2 each Q6HR PRN Administration Severe Pain (Scale 7 to 10) Hydrocodone Bitart/Acetaminophen 1 each 05/09/24 12:53 05/10/24 05:23 Hydrocodone/Apap 5-325mg 1 Each Tab PO 1 each Q4HR PRN Administration Moderate Pain (Scale 4 to 6) Al Hydroxide/Mg Hydroxide 30 ml 05/10/24 23:08 05/10/24 23:14 Mag Hydrox/Al Hydrox/Simeth 30 Ml Cup PO 30 ml Q4HR PRN Administration GI Upset Atorvastatin Calcium 40 mg 05/09/24 22:15 05/12/24 08:51 Atorvastatin 40 Mg Tab PO 40 mg DAILY ABDULLAHI Administration Dapagliflozin 5 mg 05/10/24 09:00 05/12/24 08:51 Dapagliflozin Propanediol 5 Mg Tablet PO 5 mg DAILY ABDULLAHI Administration Dextrose/Water 25 ml 05/09/24 22:04 Dextrose 50% Syringe 50 Ml IVP PER PROTOCOL PRN Hypoglycemia Protocol Dextrose/Water 50 ml 05/09/24 22:04 Dextrose 50% Syringe 50 Ml IVP PER PROTOCOL PRN Hypoglycemia Protocol Docusate Sodium 100 mg 05/09/24 21:00 05/12/24 08:51 Docusate 100 Mg Cap PO 100 mg BID ABDULLAHI Administration Heparin Sodium (Porcine) 0 unit 05/12/24 01:42 Heparin Sodium 1,000 Un/Ml (10ml Vl) IV PER PROTOCOL PRN Low PTT Protocol Piperacillin Sod/Tazobactam 100 mls @ 25 mls/hr 05/10/24 13:00 05/12/24 05:28 Sod 3.375 gm/ Sodium Chloride IVPB 25 mls/hr Q8H ABDULLAHI Administration Protocol Heparin Sodium/Sodium Chloride 250 mls @ 9.997 mls/hr 05/12/24 01:45 05/12/24 02:57 25,000 unit/ Sodium Chloride IV 11.6 units/kg/hr .Q24H ABDULLAHI 9.997 mls/hr Administration Protocol 11.6 UNITS/KG/HR Diltiazem HCl 125 mg/ Sodium 125 mls @ 15 mls/hr 05/12/24 02:15 05/12/24 07:10 Chloride IV 15 mg/hr .Q8H20M ABDULLAHI 15 mls/hr Infusion Protocol 15 MG/HR Insulin Human Lispro 0 unit 05/10/24 07:30 05/12/24 06:47 Insulin Lispro (Humalog) 100 Unit/Ml 10 Ml Vl SQ Not Given ACHS ABDULLAHI Protocol Melatonin 5 mg 05/12/24 00:14 05/12/24 00:23 Melatonin 5 Mg Tablet PO 5 mg HS PRN Administration Insomnia Metoclopramide HCl 10 mg 05/11/24 02:45 05/12/24 10:52 Metoclopramide 5 Mg/Ml 2 Ml Vial IVP 10 mg Q6HR ABDULLAHI Administration Metoprolol Tartrate 50 mg 05/12/24 09:00 05/12/24 08:51 Metoprolol Tartrate 50 Mg Tab PO 50 mg BID ABDULLAHI Administration Naloxone HCl 0.2 mg 05/09/24 08:28 05/09/24 15:11 Naloxone 0.4 Mg/Ml 1 Ml Vial IV 0.2 mg Q2M PRN Administration Opioid Reversal Ondansetron HCl 4 mg 05/09/24 12:53 05/11/24 21:41 Ondansetron 4 Mg/2 Ml Vial IVP 4 mg Q6HR PRN Administration Nausea And Vomiting Pantoprazole Sodium 40 mg 05/10/24 09:00 05/12/24 08:51 Pantoprazole 40 Mg/10 Ml Vial IVP 40 mg DAILY ABDULLAHI Administration Intake and Output 05/12/24 05/12/24 05/12/24 06:59 14:59 22:59 Intake Total 520 504.667 Output Total 370 600 Balance 150 -95.333 Intake: IV 40 0.9 KVO 40 Intake, IV Titration 24.667 Amount Diltiazem 125 mg In 24.667 Sodium Chloride 0.9% 100 ml @ 15 MG/HR 15 mls/hr IV .Q8H20M [facility] Rx#: [id number] Oral 480 480 Output: Drainage 20 0 Medial Abdomen 0 0 Right ABD 20 Urine 350 600 Other: Voiding Method Bedpan # Voids 1 Weight 90.8 kg 05/12/24 05:00 05/12/24 01:57
[2024-05-12 16:14] LABS: Glucose,Whole Blood 155 mg/dL (70-110)
[2024-05-12] MEDS: DEXTROSE 5% IN WATER 100 ML with AMIODARONE 150 MG IV ONE (16:26)
[2024-05-12] MEDS: AMIODARONE 360 MG in DEXTROSE 5% IN WATER 200 ML IV ONE (16:27)
--- NOTE | 2024-05-12 17:49 | P.PN ---
Subjective Progress Note Date: 05/12/24 CHIEF COMPLAINT: Cholecystitis HISTORY OF PRESENT ILLNESS: The patient is a 83-year-old male in intensive care unit. Early patient had ileus. He had nausea. This is now improved. He is tolerating clears. Per discussion with nursing, no recent emesis. Patient is seeking additional food. Patient is in intensive care unit. ROS: No new chest pain. No productive sputum PHYSICAL EXAM: VITAL SIGNS: Reviewed CONSTITUTIONAL: Well developed and in no acute distress. EYES: Conjuctivae without sclera icterus. Extraocular movements grossly intact. HEAD, EARS, NOSE, THROAT: Moist buccal mucosa. Head is atraumatic, normocephalic. Hears conversational speech. No nasal drainage. RESPIRATORY: Non-labored respirations and equal bilateral excursions. CARDIOVASCULAR: Palpable 2+ radial pulses. ABDOMEN: Incision intact. Jose Eduardo-Lambert serosanguineous. Mild abdominal distention. MUSCULOSKELETAL: No gross deformity of the lower extremities noted. No clubbing. No cyanosis. SKIN: Good skin turgor. Well perfused. NEUROLOGIC: Cranial nerves II through XII grossly intact. No focal or later alizing signs. PSYCH: Appropriate affect. Alert and oriented to person, place and time. CLINICAL LABS: Reviewed. WBC normal. ASSESSMENT: 1. Gangrenous cholecystitis. PLAN: 1. Simethicone gas drops ordered scheduled. 2. Continue IV antibiotics for gangrenous cholecystitis 3. Advance to low fiber diet. Objective - Vital Signs Vital signs: Vital Signs Temp 98.0 F 05/12/24 08:00 Pulse 63 05/12/24 17:00 Resp 15 05/12/24 17:00 BP 124/79 05/12/24 17:00 Pulse Ox 93 L 05/12/24 17:00 FiO2 Intake & Output 05/11/24 05/12/24 05/12/24 18:59 06:59 18:59 Intake Total 520 504.667 Output Total 570 1005 600 Balance -570 -485 -95.333 Weight 90.8 kg Intake: IV 40 0.9 KVO 40 Intake, IV Titration 24.667 Amount Diltiazem 125 mg In 24.667 Sodium Chloride 0.9% 100 ml @ 15 MG/HR 15 mls/hr IV .Q8H20M [facility] Rx#: [id number] Oral 480 480 Output: Drainage 30 55 0 Medial Abdomen 0 0 Right ABD 30 55 Urine 500 950 600 Emesis 40 Other: Voiding Method Bedpan Urinal # Voids 1 - Labs CBC & Chem 7: 05/12/24 05:00 05/12/24 01:57 Labs: Abnormal Lab Results - Last 24 Hours (Table) 05/11/24 05/12/24 05/12/24 Range/Units 21:13 01:55 01:57 MCHC 29.4 L (31.0-37.0) g/dL APTT (22.0-30.0) sec Sodium (137-145) mmol/L Carbon Dioxide (22-30) mmol/L BUN (9-20) mg/dL Creatinine (0.66-1.25) mg/dL Glucose (74-99) mg/dL POC Glucose (mg/dL) 138 H 131 H (70-110) mg/dL 05/12/24 05/12/24 05/12/24 Range/Units 01:57 05:00 06:42 MCHC 30.0 L (31.0-37.0) g/dL APTT (22.0-30.0) sec Sodium 135 L (137-145) mmol/L Carbon Dioxide 20 L (22-30) mmol/L BUN 29 H (9-20) mg/dL Creatinine 1.57 H (0.66-1.25) mg/dL Glucose 146 H (74-99) mg/dL POC Glucose (mg/dL) 147 H (70-110) mg/dL 05/12/24 05/12/24 05/12/24 Range/Units 09:01 11:05 16:12 MCHC (31.0-37.0) g/dL APTT 52.1 H (22.0-30.0) sec Sodium (137-145) mmol/L Carbon Dioxide (22-30) mmol/L BUN (9-20) mg/dL Creatinine (0.66-1.25) mg/dL Glucose (74-99) mg/dL POC Glucose (mg/dL) 190 H 155 H (70-110) mg/dL Microbiology - Last 24 Hours (Table) 05/09/24 07:40 Blood Culture - Preliminary Blood
[2024-05-12] MEDS: SIMETHICONE 40 MG/0.6 ML DROPS 2,000 MG/30 ML BOTTLE PO SCH (19:08)
[2024-05-12 20:03] LABS: Glucose,Whole Blood 197 mg/dL (70-110)
[2024-05-12] MEDS: AMIODARONE 450 MG in DEXTROSE 5% IN WATER 250 ML IV SCH (22:37)
--- NOTE | 2024-05-13 00:40 | P.PN ---
Subjective Progress Note Date: 05/12/24 - Reason for Consult Consult date: 05/10/24 Medical management, status post cholecystectomy - History of Present Illness This is a pleasant 83-year-old male who is admitted under general surgery services status post cholecystectomy which was noted to be gangrenous along with incisional hernia repair and lysis of adhesions. Patient follows with Dr. Gutierrez in the outpatient setting with a significant past medical history of asthma, coronary artery disease, prostate and colon cancer, diabetes mellitus, hyperlipidemia, hypertension, previous myocardial infarction with CABG and previous stenting, and osteoarthritis. Patient is a former smoker denies any other illicit drugs or alcohol use. Patient is status post surgical interve ntion and did have an episode of being aphasic and unable to speak almost immediately after Dilaudid was given and postop. Per general surgery neurology was consulted and CT brain was ordered and negative. Recommended to nursing staff to give Narcan which was administered and patient symptoms resolved. Recommend avoiding Dilaudid. 05/11/2024 Patient is seen in follow-up today appears more distended today and reports not feeling well continues with nausea and some vomiting. Patient currently on clear liquids recommend continuing and/or just sips of water and ice chips until improved. Patient reports has not passed gas today and denies any bowel movements. Abdominal binder noted and patient's abdomen is tender on palpation. Concerns for ileus. Patient is afebrile denies chest pain. Encourage incentive spirometer use and strongly recommend sitting up in the chair and getting up and ambulating more frequently. PT/OT therapy consulted 05/12/2024 Patient is seen in follow-up today was transferred to the ICU as patient was found to have an elevated heart rate and A-fib with the RVR. Cardiology consulted and patient was placed on heparin along with Cardizem drip. Per nursing staff Cardizem is being titrated and patient is continued on IV heparin and will be transition to metoprolol and recommend to continue IV heparin for now and will likely need Eliquis on discharge home. Patient currently rate controlled and will be a transfer out of the ICU once a bed is available. Ramu diallo reports some abdominal pain that is improving and reports to passing gas, would like an advance in diet. Patient is admitted under general surgery and diet is being advanced to low fiber. Encourage sitting up in the chair more often and increase activity as tolerated. Review of systems: Constitutional: No reports of fatigue, fever, or chills Cardiovascular: No reports of chest pain or palpitations Respiratory: No reports of shortness of breath or cough GI: No further reports of nausea, vomiting, no diarrhea, reports passing gas and no bowel movement as of yet, reports to feeling hungry asking for advance in diet : No reports of dysuria or retention Neurovascular: reports of generalized weakness All medications have been reviewed PHYSICAL EXAMINATION: GENERAL: The patient is alert and oriented x3, appears more comfortable today. Well developed, elderly appearing, obese HEENT: Pupils are round and equally reacting to light. EOMI. No scleral icterus. No conjunctival pallor. Normocephalic, atraumatic. No pharyngeal erythema. No thyromegaly. CARDIOVASCULAR: S1 and S2 muffled PULMONARY: Diminished breath sounds bilaterally otherwise chest is clear to auscultation, a few faint crackles noted at the bases. ABDOMEN: Soft, tender, mildly distended, slightly improved today, hypoactive bowel sounds. No palpable organomegaly. Binder noted MUSCULOSKELETAL: No joint swelling or deformity. EXTREMITIES: No cyanosis, clubbing, or pedal edema. NEUROLOGICAL: Gross neurological examination did not reveal any focal deficits. Diffusely weak SKIN: No rashes. Assessment: Status post cholecystectomy for gangrenous cholecystitis along with lysis of adhesions and incisional hernia repair Brief period of difficulty in speaking with aphasia, TIA versus CVA unlikely, likely medication effect from Dilaudid as symptoms started almost immediately after Dilaudid was given and resolved status post Narcan administration Atrial fibrillation with RVR, new onset, currently on IV heparin and Cardizem Abdominal pain with distention, concerns for ileus History of asthma, not in exacerbation History of coronary artery disease with previous CABG and stenting Diabetes mellitus, type II Hyperlipidemia Hypertension Osteoarthritis Prostate and colon cancer Obesity with a BMI 31.6 GI prophylaxis DVT prophylaxis Full code Plan: Patient admitted under surgery status post surgical intervention with cholecystectomy for gangrenous gallbladder along with lysis of adhesions and incisional hernia repair. Patient was brought to the ICU as a stepdown overflow for atrial fibrillation w ith RVR, new onset. Patient was started on Cardizem along with IV heparin and cardiology following transitioning to metoprolol recommending continue with IV heparin for now and will transition to oral Eliquis on discharge. Encourage incentive spirometer use at least 10 times every hour while awake Recommend PT/OT therapy for evaluation and sitting up in the chair more often Patient was having some increased abdominal distention with concerns for ileus. Patient reports to passing gas and reports improvement in abdominal pain requesting advance in diet. Per surgery patient being advanced low fiber Recommend repeat labs to monitor kidney functions and electrolytes. Replace electrolytes per protocol Neurology had been consulted for the acute aphasia episode and underwent CT brain which was negative recommending no further workup at this time. Strongly recommend avoiding Dilaudid and IV narcotics in this patient. We will continue to follow with general surgery. Thank you kindly for this consultation. The impression and plan of care has been dictated by Brandy Murphy, Nurse Practitioner as directed. Dr. Fabien MD I have performed a history and examination and MDM of this patient, discussed the same with the dictator, and agree with the dictator's assessment and plan as written ,documented as a scribe. Based on total visit time, I have performed more than 50% of the visit. Objective - Vital Signs Vital signs: Vital Signs Temp 97.4 F L 05/12/24 02:00 Pulse 115 H 05/12/24 07:00 Resp 19 05/12/24 07:00 BP 122/90 05/12/24 07:00 Pulse Ox 93 L 05/12/24 07:00 FiO2 Intake & Output 05/11/24 05/12/24 05/12/24 18:59 06:59 18:59 Intake Total 520 24.667 Output Total 570 1005 Balance -570 -485 24.667 Weight 90.8 kg Intake: IV 40 0.9 KVO 40 Intake, IV Titration 24.667 Amount Diltiazem 125 mg In 24.667 Sodium Chloride 0.9% 100 ml @ 5 MG/HR 5 mls/hr IV .Q24H [facility] Rx#:[id number] Oral 480 Output: Drainage 30 55 Medial Abdomen 0 Right ABD 30 55 Urine 500 950 Emesis 40 Other: Voiding Method Bedpan # Voids 1 - Labs CBC & Chem 7: 05/12/24 05:00 05/12/24 01:57 Labs: Abnormal Lab Results - Last 24 Hours (Table) 05/11/24 05/11/24 05/11/24 Range/Units 11:53 16:45 21:13 MCHC (31.0-37.0) g/dL Sodium (137-145) mmol/L Carbon Dioxide (22-30) mmol/L BUN (9-20) mg/dL Creatinine (0.66-1.25) mg/dL Glucose (74-99) mg/dL POC Glucose (mg/dL) 169 H 162 H 138 H (70-110) mg/dL 05/12/24 05/12/24 05/12/24 Range/Units 01:55 01:57 01:57 MCHC 29.4 L (31.0-37.0) g/dL Sodium 135 L (137-145) mmol/L Carbon Dioxide 20 L (22-30) mmol/L BUN 29 H (9-20) mg/dL Creatinine 1.57 H (0.66-1.25) mg/dL Glucose 146 H (74-99) mg/dL POC Glucose (mg/dL) 131 H (70-110) mg/dL 05/12/24 05/12/24 Range/Units 05:00 06:42 MCHC 30.0 L (31.0-37.0) g/dL Sodium (137-145) mmol/L Carbon Dioxide (22-30) mmol/L BUN (9-20) mg/dL Creatinine (0.66-1.25) mg/dL Glucose (74-99) mg/dL POC Glucose (mg/dL) 147 H (70-110) mg/dL Microbiology - Last 24 Hours (Table) 05/09/24 07:40 Blood Culture - Preliminary Blood
[2024-05-13 06:05] LABS: Glucose,Whole Blood 194 mg/dL (70-110)
[2024-05-13 08:40] LABS: INR 1.1 (<1.2); Partial Thromboplastin Time 64.5 sec (22.0-30.0); Prothrombin Time 11.7 sec (10.0-12.5)
[2024-05-13 09:00] LABS: Basophils % (A) 0 %; Eosinophils # (A) 0.2 k/uL (0-0.7); Eosinophils % (A) 2 %; HCT 43.7 % (39.0-53.0); HGB 13.1 gm/dL (13.0-17.5); Hypochromasia Slight; Lymphocytes # (A) 0.8 k/uL (1.0-4.8); Lymphocytes % (A) 13 %; MCH 28.2 pg (25.0-35.0); MCV 94.1 fL (80.0-100.0); Mean Platelet Volume 8.2; Monocytes # (A) 0.5 k/uL (0-1.0); Monocytes % (A) 8 %; Neutrophils # (A) 4.6 k/uL (1.3-7.7); Neutrophils % (A) 74 %; Platelet Count 212 k/uL (150-450); RBC 4.64 m/uL (4.30-5.90); RDW 13.9 % (11.5-15.5); WBC 6.2 k/uL (3.8-10.6)
[2024-05-13 09:26] LABS: African American GFR (CKD) 47 (>60 ml/min/1.73 sqM); Anion Gap 12 mmol/L; Blood Urea Nitrogen 32 mg/dL (9-20); Calcium 8.3 mg/dL (8.4-10.2); Carbon Dioxide 24 mmol/L (22-30); Chloride 103 mmol/L (98-107); Glucose 159 mg/dL (74-99); Non-African American GFR(CKD) 41 (>60 ml/min/1.73 sqM); Potassium 4.2 mmol/L (3.5-5.1); Sodium 139 mmol/L (137-145)
[2024-05-13 11:31] LABS: Glucose,Whole Blood 148 mg/dL (70-110)
[2024-05-13] MEDS: AMIODARONE 200 MG TAB PO SCH (11:36)
[2024-05-13 12:17] LABS: Glucose,Whole Blood 151 mg/dL (70-110)
[2024-05-13] MEDS ORDERED: IPRATROPIUM-ALBUTEROL 3 ML NEB INHALATION PRN (13:10)
[2024-05-13] MEDS: hydrALAZINE HCL 20 MG/ML 1 ML VIAL IVP PRN (13:16)
--- NOTE | 2024-05-13 13:49 | P.PN ---
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 Patient previously followed in the office with Dr. Duarte and Dr. EDELMIRA Munoz however states he has been following with somebody else more recently. Patient presented with abdominal pain and nausea and found to have cholecystitis and underwent cholecystectomy. Initially patient was in normal sinus rhythm however noted on the floor to be in A-fib with RVR with heart rates in the 130s to 140s. Patient was predominantly asymptomatic and denies any chest pain or pressure. Denies any significant s hortness of breath or fatigue. He was started on Cardizem drip with heart rates better controlled in the 70s. EKG showing LVH with strain with T wave inversions. / Patient seen and examined on the cardiac stepdown unit. Patient has been transferred out of the intensive care unit unit. Patient states I cannot eat, I have no appetite. He states his abdomen hurts when he coughs. Patient has been started on amiodarone drip and converted to sinus rhythm last evening. He is already on heparin drip for now until cleared by general surgery for Eliquis. Blood pressure 193/91, heart rate 84, pulse ox 95% on 1 L. PHYSICAL EXAMINATION Vital signs reviewed. CONSTITUTIONAL: No apparent distress. HEENT: Head is normocephalic. Pupils are equal, round. Sclerae anicteric. Mucous membranes of the mouth are moist. No JVD. No carotid bruit. CHEST EXAMINATION: Lungs are clear to auscultation. No chest wall tenderness is noted on palpation or with deep breathing. HEART EXAMINATION: Regular rate and rhythm. S1, S2 heard. No murmurs, gallops or rub. ABDOMEN: Soft, nontender. Positive bowel sounds. EXTREMITIES: 2+ peripheral pulses, no lower extremity edema and no calf tenderness. NEUROLOGIC EXAMINATION: Patient is awake, alert and oriented x3. ASSESSMENT Cholecystitis status postcholecystectomy New onset paroxysmal atrial fibrillation with RVR, converted to sinus rhythm Acute kidney injury CAD status post CABG Hypertension Hyperlipidemia History of cardiomyopathy EF 45% Diabetes mellitus Obesity CKD PLAN Transition IV amiodarone to oral 400 mg twice daily for 1 week followed by 200 mg twice daily for 1 week and then 200 mg daily Plan to start patient on Eliquis once cleared by general surgery. Continue heparin drip for now. Add hydralazine 25 mg 3 times daily Obtain 2D echocardiogram to evaluate cardiomyopathy and valves. Further recommendations as patient progresses. Nurse practitioner note has been reviewed, I agree with documented findings and plan of care. Patient was seen and examined. Objective - Vital Signs Vital signs: Vital Signs Temp 98.2 F 05/12/24 21:10 Pulse 71 05/13/24 04:20 Resp 18 05/13/24 04:20 BP 164/91 05/13/24 04:20 Pulse Ox 95 05/13/24 04:20 FiO2 Intake & Output 05/12/24 05/13/24 05/13/24 18:59 06:59 18:59 Intake Total 504.667 247.759 Output Total 600 930 Balance -95.333 -682.241 Weight 90.5 kg Intake: Intake, IV Titration 24.667 247.759 Amount Diltiazem 125 mg In 24.667 Sodium Chloride 0.9% 100 ml @ 15 MG/HR 15 mls/hr IV .Q8H20M [facility] Rx#: [id number] Heparin Sod,Pork in 0.45% 247.759 NaCl 25,000 unit In 0.45 % NaCl 1 250ml.bag @ 11.6 UNITS/KG/HR 9.997 mls/hr IV .Q24H [facility] Rx#: [id number] Oral 480 Output: Drainage 0 80 Medial Abdomen 0 0 Right ABD 80 Urine 600 850 Other: Voiding Method Urinal Urinal # Voids 2 - Labs CBC & Chem 7: 05/13/24 07:08 05/13/24 07:08 Labs: Abnormal Lab Results - Last 24 Hours (Table) 05/12/24 05/12/24 05/12/24 Range/Units 09:01 11:05 16:12 MCHC (31.0-37.0) g/dL Lymphocytes # (1.0-4.8) k/uL APTT 52.1 H (22.0-30.0) sec POC Glucose (mg/dL) 190 H 155 H (70-110) mg/dL 05/12/24 05/13/24 05/13/24 Range/Units 20:02 05:58 07:08 MCHC 30.0 L (31.0-37.0) g/dL Lymphocytes # 0.8 L (1.0-4.8) k/uL APTT (22.0-30.0) sec POC Glucose (mg/dL) 197 H 194 H (70-110) mg/dL 05/13/24 Range/Units 07:08 MCHC (31.0-37.0) g/dL Lymphocytes # (1.0-4.8) k/uL APTT 64.5 H (22.0-30.0) sec POC Glucose (mg/dL) (70-110) mg/dL Microbiology - Last 24 Hours (Table) 05/09/24 07:40 Blood Culture - Preliminary Blood
--- NOTE | 2024-05-13 14:54 | P.PN ---
Subjective Progress Note Date: 05/13/24 CHIEF COMPLAINT: Cholecystitis HISTORY OF PRESENT ILLNESS: The patient is a 83-year-old male transferred from the intensive care unit to [facility]. He is tolerating diet. He status post cholecystectomy. He reports having a bowel movement and is passing flatus. He reports early satiety. He reports intolerance to high sugary beverages due to diabetes. ROS: No new chest pain. No productive sputum PHYSICAL EXAM: VITAL SIGNS: Reviewed CONSTITUTIONAL: Well developed and in no acute distress. EYES: Conjuctivae without sclera icterus. Extraocular movements grossly intact. HEAD, EARS, NOSE, THROAT: Moist buccal mucosa. Head is atraumatic, normocephalic. Hears conversational speech. No nasal drainage. RESPIRATORY: Non-labored respirations and equal bilateral excursions. CARDIOVASCULAR: Palpable 2+ radial pulses. ABDOMEN: Incision intact. Jose Eduardo-Lambert serosanguineous. Abdominal binder intact. MUSCULOSKELETAL: No gross deformity of the lower extremities noted. No clubbing. No cyanosis. SKIN: Good skin turgor. Well perfused. NEUROLOGIC: Cranial nerves II through XII grossly intact. No focal or lateralizing signs. PSYCH: Appropriate affect. Alert and oriented to person, place and time. CLINICAL LABS: Reviewed. WBC normal. ASSESSMENT: 1. Gangrenous cholecystitis. 2. Diabetes type 2 PLAN: 1. Will add protein shakes such that he has an alternative outside of eating foods for optimal recovery. 2. Patient advised to eat his protein on his diet to the best of his ability. Objective - Vital Signs Vital signs: Vital Signs Temp 98.1 F 05/13/24 12:00 Pulse 84 05/13/24 12:00 Resp 17 05/13/24 12:00 BP 179/100 05/13/24 12:30 Pulse Ox 95 05/13/24 12:00 FiO2 Intake & Output 05/12/24 05/13/24 05/13/24 18:59 06:59 18:59 Intake Total 504.667 247.759 Output Total 600 930 115 Balance -95.333 -682.241 -115 Weight 90.5 kg Intake: Intake, IV Titration 24.667 247.759 Amount Diltiazem 125 mg In 24.667 Sodium Chloride 0.9% 100 ml @ 15 MG/HR 15 mls/hr IV .Q8H20M [facility] Rx#: [id number] Heparin Sod,Pork in 0.45% 247.759 NaCl 25,000 unit In 0.45 % NaCl 1 250ml.bag @ 11.6 UNITS/KG/HR 9.997 mls/hr IV .Q24H [facility] Rx#: [id number] Oral 480 Output: Drainage 0 80 115 Medial Abdomen 0 0 75 Right ABD 80 40 Urine 600 850 Other: Voiding Method Urinal Urinal Urinal # Voids 2 1 # Bowel Movements 1 - Labs CBC & Chem 7: 05/13/24 07:08 05/13/24 07:08 Labs: Abnormal Lab Results - Last 24 Hours (Table) 05/12/24 05/12/24 05/13/24 Range/Units 16:12 20:02 05:58 MCHC (31.0-37.0) g/dL Lymphocytes # (1.0-4.8) k/uL APTT (22.0-30.0) sec BUN (9-20) mg/dL Creatinine (0.66-1.25) mg/dL Glucose (74-99) mg/dL POC Glucose (mg/dL) 155 H 197 H 194 H (70-110) mg/dL Calcium (8.4-10.2) mg/dL 05/13/24 05/13/24 05/13/24 Range/Units 07:08 07:08 07:08 MCHC 30.0 L (31.0-37.0) g/dL Lymphocytes # 0.8 L (1.0-4.8) k/uL APTT 64.5 H (22.0-30.0) sec BUN 32 H (9-20) mg/dL Creatinine 1.57 H (0.66-1.25) mg/dL Glucose 159 H (74-99) mg/dL POC Glucose (mg/dL) (70-110) mg/dL Calcium 8.3 L (8.4-10.2) mg/dL 05/13/24 05/13/24 Range/Units 11:30 12:15 MCHC (31.0-37.0) g/dL Lymphocytes # (1.0-4.8) k/uL APTT (22.0-30.0) sec BUN (9-20) mg/dL Creatinine (0.66-1.25) mg/dL Glucose (74-99) mg/dL POC Glucose (mg/dL) 148 H 151 H (70-110) mg/dL Calcium (8.4-10.2) mg/dL Microbiology - Last 24 Hours (Table) 05/09/24 07:40 Blood Culture - Preliminary Blood
[2024-05-13] MEDS: hydrALAZINE HCL 25 MG TAB PO SCH (15:32)
[2024-05-13 16:35] LABS: Glucose,Whole Blood 153 mg/dL (70-110)
[2024-05-13 21:19] LABS: Glucose,Whole Blood 146 mg/dL (70-110)
--- NOTE | 2024-05-14 03:30 | P.PN ---
Subjective Progress Note Date: 05/13/24 - Reason for Consult Consult date: 05/10/24 Medical management, status post cholecystectomy - History of Present Illness This is a pleasant 83-year-old male who is admitted under general surgery services status post cholecystectomy which was noted to be gangrenous along with incisional hernia repair and lysis of adhesions. Patient follows with Dr. Gutierrez in the outpatient setting with a significant past medical history of asthma, coronary artery disease, prostate and colon cancer, diabetes mellitus, hyperlipidemia, hypertension, previous myocardial infarction with CABG and previous stenting, and osteoarthritis. Patient is a former smoker denies any other illicit drugs or alcohol use. Patient is status post surgical interve ntion and did have an episode of being aphasic and unable to speak almost immediately after Dilaudid was given and postop. Per general surgery neurology was consulted and CT brain was ordered and negative. Recommended to nursing staff to give Narcan which was administered and patient symptoms resolved. Recommend avoiding Dilaudid. 05/11/2024 Patient is seen in follow-up today appears more distended today and reports not feeling well continues with nausea and some vomiting. Patient currently on clear liquids recommend continuing and/or just sips of water and ice chips until improved. Patient reports has not passed gas today and denies any bowel movements. Abdominal binder noted and patient's abdomen is tender on palpation. Concerns for ileus. Patient is afebrile denies chest pain. Encourage incentive spirometer use and strongly recommend sitting up in the chair and getting up and ambulating more frequently. PT/OT therapy consulted 05/12/2024 Patient is seen in follow-up today was transferred to the ICU as patient was found to have an elevated heart rate and A-fib with the RVR. Cardiology consulted and patient was placed on heparin along with Cardizem drip. Per nursing staff Cardizem is being titrated and patient is continued on IV heparin and will be transition to metoprolol and recommend to continue IV heparin for now and will likely need Eliquis on discharge home. Patient currently rate controlled and will be a transfer out of the ICU once a bed is available. Ramu diallo reports some abdominal pain that is improving and reports to passing gas, would like an advance in diet. Patient is admitted under general surgery and diet is being advanced to low fiber. Encourage sitting up in the chair more often and increase activity as tolerated. 05/13/2024 Patient is seen in follow-up today admitted to general surgery with cardiology now following as patient has new onset A-fib, currently rate controlled and being maintained on metoprolol as well as IV heparin. Patient will need transition to Eliquis once cleared by surgery. Patient reports is eating some although not much of an appetite and reports to passing some minimal gas. Patient has not had a bowel movement as of yet. Patient continues on 2 L of oxygen and normally does not wear oxygen at home. Recommend continuing with incentive spirometer use and weaning FiO2 as tolerated. Will add breathing t reatments as needed as there was some faint wheezing noted on expiration. Diet being advanced per surgery. Review of systems: Constitutional: No reports of fatigue, fever, or chills Cardiovascular: No reports of chest pain or palpitations Respiratory: No reports of shortness of breath or cough GI: No further reports of nausea, vomiting, no diarrhea, reports passing gas and no bowel movement as of yet, reports not much of an appetite : No reports of dysuria or retention Neurovascular: reports of generalized weakness All medications have been reviewed PHYSICAL EXAMINATION: GENERAL: The patient is alert and oriented x3, appears more comfortable today. Well developed, elderly appearing, obese HEENT: Pupils are round and equally reacting to light. EOMI. No scleral icterus. No conjunctival pallor. Normocephalic, atraumatic. No pharyngeal erythema. No thyromegaly. CARDIOVASCULAR: S1 and S2 muffled PULMONARY: Diminished breath sounds bilaterally otherwise chest is clear to auscultation, a few faint crackles noted at the bases. ABDOMEN: Soft, tender, less distended, slightly improved today, bowel sounds noted. No palpable organomegaly. Binder noted MUSCULOSKELETAL: No joint swelling or deformity. EXTREMITIES: No cyanosis, clubbing, or pedal edema. NEUROLOGICAL: Gross neurological examination did not reveal any focal deficits. Diffusely weak SKIN: No rashes. Assessment: Status post cholecystectomy for gangrenous cholecystitis along with lysis of adhesions and incisional hernia repair Brief period of difficulty in speaking with aphasia, TIA versus CVA unlikely, likely medication effect from Dilaudid as symptoms started almost immediately after Dilaudid was given and resolved status post Narcan administration Atrial fibrillation with RVR, new onset, currently on IV heparin and transition to metoprolol, currently rate controlled Abdominal pain with distention, concerns for ileus, improving patient is passing gas and reports to having a bowel movement History of asthma, not in exacerbation History of coronary artery disease with previous CABG and stenting Diabetes mellitus, type II Hyperlipidemia Hypertension Osteoarthritis Prostate and colon cancer Obesity with a BMI 31.6 Generalized weakness GI prophylaxis DVT prophylaxis Full code Plan: Patient admitted under surgery status post surgical intervention with cholecystectomy for gangrenous gallbladder along with lysis of adhesions and incisional hernia repair. Patient was brought to the ICU as a stepdown overflow for atrial fibrillation with RVR, new onset. Patient was started on Cardizem along with IV heparin and cardiology following and has transitioned to metoprolol recommending continue wi IV heparin for now and will transition to oral Eliquis on discharge. Encourage incentive spirometer use at least 10 times every hour while awake Recommend PT/OT therapy for evaluation and sitting up in the chair more often, per nursing staff patient had an unwitnessed fall as he was attempting to get to the bathroom quickly. Patient reported to staff that he fell onto his butt and denies hitting his head and was able to get back up on his own and get back into bed. Patient denying any injuries. Will monitor closely and have physical therapy reevaluate on Tuesday. Patient was having some increased abdominal distention with concerns for ileus. Patient reports to passing gas and reports improvement in abdominal pain requesting advance in diet. Per surgery patient being advanced low fiber, patient reports to having a bowel movement today Recommend repeat labs to monitor kidney functions and electrolytes. Replace electrolytes per protocol We will continue to follow with general surgery. Thank you kindly for this consultation. The impression and plan of care has been dictated by Brandy Murphy, Nurse Practitioner as directed. Dr. Fabien MD I have performed a history and examination and MDM of this patient, discussed the same with the dictator, and agree with the dictator's assessment and plan as written ,documented as a scribe. Based on total visit time, I have performed more than 50% of the visit. Objective - Vital Signs Vital signs: Vital Signs Temp 98.2 F 05/12/24 21:10 Pulse 71 05/13/24 04:20 Resp 18 05/13/24 04:20 BP 164/91 05/13/24 04:20 Pulse Ox 95 05/13/24 04:20 FiO2 Intake & Output 05/12/24 05/13/24 05/13/24 18:59 06:59 18:59 Intake Total 504.667 247.759 Output Total 600 930 Balance -95.333 -682.241 Weight 90.5 kg Intake: Intake, IV Titration 24.667 247.759 Amount Diltiazem 125 mg In 24.667 Sodium Chloride 0.9% 100 ml @ 15 MG/HR 15 mls/hr IV .Q8H20M [facility] Rx#: [id number] Heparin Sod,Pork in 0.45% 247.759 NaCl 25,000 unit In 0.45 % NaCl 1 250ml.bag @ 11.6 UNITS/KG/HR 9.997 mls/hr IV .Q24H [facility] Rx#: [id number] Oral 480 Output: Drainage 0 80 Medial Abdomen 0 0 Right ABD 80 Urine 600 850 Other: Voiding Method Urinal Urinal # Voids 2 - Labs CBC & Chem 7: 05/13/24 07:08 05/13/24 07:08 Labs: Abnormal Lab Results - Last 24 Hours (Table) 05/12/24 05/12/24 05/12/24 Range/Units 11:05 16:12 20:02 MCHC (31.0-37.0) g/dL Lymphocytes # (1.0-4.8) k/uL APTT (22.0-30.0) sec BUN (9-20) mg/dL Creatinine (0.66-1.25) mg/dL Glucose (74-99) mg/dL POC Glucose (mg/dL) 190 H 155 H 197 H (70-110) mg/dL Calcium (8.4-10.2) mg/dL 05/13/24 05/13/24 05/13/24 Range/Units 05:58 07:08 07:08 MCHC 30.0 L (31.0-37.0) g/dL Lymphocytes # 0.8 L (1.0-4.8) k/uL APTT 64.5 H (22.0-30.0) sec BUN (9-20) mg/dL Creatinine (0.66-1.25) mg/dL Glucose (74-99) mg/dL POC Glucose (mg/dL) 194 H (70-110) mg/dL Calcium (8.4-10.2) mg/dL 05/13/24 Range/Units 07:08 MCHC (31.0-37.0) g/dL Lymphocytes # (1.0-4.8) k/uL APTT (22.0-30.0) sec BUN 32 H (9-20) mg/dL Creatinine 1.57 H (0.66-1.25) mg/dL Glucose 159 H (74-99) mg/dL POC Glucose (mg/dL) (70-110) mg/dL Calcium 8.3 L (8.4-10.2) mg/dL Microbiology - Last 24 Hours (Table) 05/09/24 07:40 Blood Culture - Preliminary Blood
[2024-05-14 06:17] LABS: Glucose,Whole Blood 112 mg/dL (70-110)
[2024-05-14 08:03] LABS: African American GFR (CKD) 58 (>60 ml/min/1.73 sqM); Anion Gap 16 mmol/L; Blood Urea Nitrogen 23 mg/dL (9-20); Calcium 8.3 mg/dL (8.4-10.2); Carbon Dioxide 16 mmol/L (22-30); Chloride 106 mmol/L (98-107); Glucose 112 mg/dL (74-99); Non-African American GFR(CKD) 50 (>60 ml/min/1.73 sqM); Sodium 138 mmol/L (137-145)
[2024-05-14 08:06] LABS: Potassium 4.3 mmol/L (3.5-5.1)
[2024-05-14] MEDS: APIXABAN 5 MG TAB PO SCH (09:42)
[2024-05-14 11:34] LABS: Glucose,Whole Blood 107 mg/dL (70-110)
--- NOTE | 2024-05-14 12:33 | P.PN ---
Subjective Progress Note Date: 05/14/24 SURGICAL PROGRESS NOTE CHIEF COMPLAINT: Gangrenous cholecystitis HISTORY OF PRESENT ILLNESS: Patient is postop day #5 status post diagnostic laparoscopy, open cholecystectomy repair of small bowel, lysis of adhesions and repair of incisional hernia. Patient required transfer to the cardiac floor over the weekend due to A-fib with RVR. He is currently on a heparin drip. He did have a small bowel movement and is having some flatus. Denies any nausea or vomiting. Pain controlled. Family at bedside notes intermittent confusion. Afebrile. Creatinine 1.33 PHYSICAL EXAM: VITAL SIGNS: Reviewed. GENERAL: Well-developed in no acute distress. ABDOMEN: Soft. Prevena wound VAC intact NEUROLOGIC: Alert and oriented. Cranial nerves II through XII grossly intact. ASSESSMENT: 1. Gangrenous cholecystitis, adhesions, incisional hernia 2. Difficulty with speech postoperatively likely due to pain medication and anesthesia. Symptoms improved after Narcan. Dilaudid was discontinued. Patient seen by neurology service. 3. Ileus PLAN: -Continue low-fat diet -Okay to start Eliquis from surgical standpoint -Continue antibiotics -Patient can shower -Continue the Prevena wound VAC dressing until Tuesday -Continue pain management -Transfer service over to medicine team -GI prophylaxis Protonix and DVT prophylaxis Lovenox Physician Supervisor Drapery Hanging note has been reviewed by physician. Signing provider agrees with the documented findings, assessment, and plan of care. Objective - Vital Signs Vital signs: Vital Signs Temp 98.2 F 05/14/24 09:17 Pulse 81 05/14/24 09:17 Resp 19 05/14/24 09:17 BP 150/82 05/14/24 09:17 Pulse Ox 99 05/14/24 09:17 FiO2 Intake & Output 05/13/24 05/14/24 05/14/24 18:59 06:59 18:59 Intake Total 240 250 10 Output Total 115 280 75 Balance 125 -30 -65 Weight 90.7 kg Intake: IV 10 Invasive Line 4 10 Intake, IV Titration 250 Amount Heparin Sod,Pork in 0.45% 250 NaCl 25,000 unit In 0.45 % NaCl 1 250ml.bag @ 11.6 UNITS/KG/HR 9.997 mls/hr IV .Q24H [facility] Rx#: [id number] Oral 240 Output: Drainage 115 280 75 Medial Abdomen 75 0 0 Right ABD 40 280 75 Other: Voiding Method Urinal Urinal Urinal # Voids 1 # Bowel Movements 1 1 - Labs CBC & Chem 7: 05/13/24 07:08 05/14/24 06:54 Labs: Abnormal Lab Results - Last 24 Hours (Table) 05/13/24 05/13/24 05/14/24 Range/Units 16:34 21:18 06:16 APTT (22.0-30.0) sec Carbon Dioxide (22-30) mmol/L BUN (9-20) mg/dL Creatinine (0.66-1.25) mg/dL Glucose (74-99) mg/dL POC Glucose (mg/dL) 153 H 146 H 112 H (70-110) mg/dL Calcium (8.4-10.2) mg/dL 05/14/24 05/14/24 Range/Units 06:54 06:59 APTT 56.4 H (22.0-30.0) sec Carbon Dioxide 16 L (22-30) mmol/L BUN 23 H (9-20) mg/dL Creatinine 1.33 H (0.66-1.25) mg/dL Glucose 112 H (74-99) mg/dL POC Glucose (mg/dL) (70-110) mg/dL Calcium 8.3 L (8.4-10.2) mg/dL
--- NOTE | 2024-05-14 13:26 | P.PN ---
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 Patient previously followed in the office with Dr. Duarte and Dr. EDELMIRA Munoz however states he has been following with somebody else more recently. Patient presented with abdominal pain and nausea and found to have cholecystitis and underwent cholecystectomy. Initially patient was in normal sinus rhythm however noted on the floor to be in A-fib with RVR with heart rates in the 130s to 140s. Patient was predominantly asymptomatic and denies any chest pain or pressure. Denies any significant shortness of breath or fatigue. He was started on Cardizem drip with heart rates better controlled in the 70s. EKG showing LVH with strain with T wave inversions. 05/13 Patient seen and examined on the cardiac stepdown unit. Patient has been transferred out of the intensive care unit unit. Patient states I cannot eat, I have no appetite. He states his abdomen hurts when he coughs. Patient has been started on amiodarone drip and converted to sinus rhythm last evening. He is already on heparin drip for now until cleared by general surgery for Eliquis. Blood pressure 193/91, heart rate 84, pulse ox 95% on 1 L. 05/14/2024 Patient examined this morning the bedside. Patient currently denies chest pain or pressure. He denies shortness of breath. Telemetry reveals sinus mechanism. Patient is currently not eating much. PHYSICAL EXAM: VITAL SIGNS: Reviewed. GENERAL: Well-developed in no acute distress. NECK: Supple. No JVD or thyromegaly LUNGS: Respirations even and unlabored. Lungs essentially clear to auscultation bilaterally. HEART: Regular rate and rhythm. S1 and S2 heard. EXTREMITIES: Normal range of motion. No clubbing or cyanosis. Peripheral pulses intact. No lower extremity edema ASSESSMENT: Cholecystitis status postcholecystectomy New onset paroxysmal atrial fibrillation with RVR, converted to sinus rhythm Acute kidney injury CAD status post CABG Hypertension Hyperlipidemia History of cardiomyopathy EF 45% Diabetes mellitus Obesity CKD PLAN: 2D echo ordered. Await results. Begin Eliquis 5 mg twice a day. Okay to begin anticoagulation per general surgery Discontinue Farxiga as patient has decreased oral intake. Resume Farxiga at the time of discharge Continue oral amiodarone 400 mg twice a day. Decrease to 200 mg twice a day at the time of discharge. Continue additional cardiac medications including Lipitor, hydralazine, and metoprolol Continue telemetry monitoring Further recommendations pending patient course Nurse practitioner note has been reviewed by physician. Signing provider agrees with the documented findings, assessment, and plan of care documented by MI[employer] NET DEVELOPER as a scribe. Objective - Vital Signs Vital signs: Vital Signs Temp 98.2 F 05/14/24 09:17 Pulse 81 05/14/24 09:17 Resp 19 05/14/24 09:17 BP 150/82 05/14/24 09:17 Pulse Ox 99 05/14/24 09:17 FiO2 Intake & Output 05/13/24 05/14/24 05/14/24 18:59 06:59 18:59 Intake Total 240 250 10 Output Total 115 280 75 Balance 125 -30 -65 Weight 90.7 kg Intake: IV 10 Invasive Line 4 10 Intake, IV Titration 250 Amount Heparin Sod,Pork in 0.45% 250 NaCl 25,000 unit In 0.45 % NaCl 1 250ml.bag @ 11.6 UNITS/KG/HR 9.997 mls/hr IV .Q24H [facility] Rx#: [id number] Oral 240 Output: Drainage 115 280 75 Medial Abdomen 75 0 0 Right ABD 40 280 75 Other: Voiding Method Urinal Urinal Urinal # Voids 1 # Bowel Movements 1 1 - Labs CBC & Chem 7: 05/13/24 07:08 05/14/24 06:54 Labs: Abnormal Lab Results - Last 24 Hours (Table) 05/13/24 05/13/24 05/14/24 Range/Units 16:34 21:18 06:16 APTT (22.0-30.0) sec Carbon Dioxide (22-30) mmol/L BUN (9-20) mg/dL Creatinine (0.66-1.25) mg/dL Glucose (74-99) mg/dL POC Glucose (mg/dL) 153 H 146 H 112 H (70-110) mg/dL Calcium (8.4-10.2) mg/dL 05/14/24 05/14/24 Range/Units 06:54 06:59 APTT 56.4 H (22.0-30.0) sec Carbon Dioxide 16 L (22-30) mmol/L BUN 23 H (9-20) mg/dL Creatinine 1.33 H (0.66-1.25) mg/dL Glucose 112 H (74-99) mg/dL POC Glucose (mg/dL) (70-110) mg/dL Calcium 8.3 L (8.4-10.2) mg/dL Microbiology - Last 24 Hours (Table) 05/09/24 07:40 Blood Culture - Final Blood
[2024-05-14 16:22] LABS: Glucose,Whole Blood 151 mg/dL (70-110)
--- NOTE | 2024-05-14 17:32 | CA ---
Transthoracic Echo Report Name: Issa Jennings Age: 83 Gender: M : 1940 Exam Date: 05/14/2024 08:21 Exam Location: [facility] Ht (in): 66 Wt (lb): 199 Ordering Physician: Kareen Joshi Attending/Referring Phys: [id number], Madelyn House Decorator Jeimy Agustin RDCS Procedure CPT: Indications: Cardiomyopathy with history of EF 45 Cardiac Hx: Stent, CABG Technical Quality: Good Contrast 1: Definity Total Dose (mL): 2 Contrast 2: Total Dose (mL): MEASUREMENTS (Male / Female) Normal Values 2D ECHO LV Diastolic Diameter PLAX 5.1 cm 4.2 - 5.9 / 3.9 - 5.3 cm LV Systolic Diameter PLAX 4.0 cm IVS Diastolic Thickness 1.1 cm 0.6 - 1.0 / 0.6 - 0.9 cm LVPW Diastolic Thickness 1.0 cm 0.6 - 1.0 / 0.6 - 0.9 cm LV Relative Wall Thickness 0.4 LVOT Diameter 1.6 cm LA Systolic Diameter LX 3.9 cm 3.0 - 4.0 / 2.7 - 3.8 cm LA Volume 70.0 cm??? 18 - 58 / 22 - 52 cm??? LA Volume Index 33.6 cm???/m??? 16 - 28 cm???/m??? DOPPLER MV Area PHT 4.3 cm??? Mitral E Point Velocity 84.7 cm/s Mitral A Point Velocity 102.3 cm/s Mitral E to A Ratio 0.8 MV Deceleration Time 175.4 ms FINDINGS Left Ventricle Left ventricular ejection fraction is estimated at 50-55%. Left ventricular cavity size normal. Right Ventricle Moderate right ventricular dilatation. Normal systlic function. Unable to estimate the right ventricular systolic pressure. Right Atrium Normal right atrial size. Left Atrium Mildly increased left atrial volume. Mitral Valve Mitral valve thickened. Mitral annular calcification. No mitral stenosis. Trace mitral regurgitation. Aortic Valve Trileaflet aortic valve. Diffuse thickening (sclerosis) of the aortic valve cusps without reduced excursion. No aortic stenosis. No aortic regurgitation. Tricuspid Valve Structurally normal tricuspid valve. Trace tricuspid regurgitation. Pulmonic Valve Structurally normal pulmonic valve. No pulmonic stenosis. No pulmonic regurgitation. Pericardium No pericardial effusion. Aorta Normal size aortic root and proximal ascending aorta. CONCLUSIONS 1. Borderline left ventricular systolic function 2. Trace mitral and tricuspid regurgitation Previewed by: Dr. Obed Sanchez MD (Electronically Signed) Final Date: 14 May 2024 17:31
[2024-05-14 19:41] LABS: Glucose,Whole Blood 187 mg/dL (70-110)
--- NOTE | 2024-05-15 05:39 | P.PN ---
Subjective Progress Note Date: 05/14/24 - Reason for Consult Consult date: 05/10/24 Medical management, status post cholecystectomy - History of Present Illness This is a pleasant 83-year-old male who is admitted under general surgery services status post cholecystectomy which was noted to be gangrenous along with incisional hernia repair and lysis of adhesions. Patient follows with Dr. Gutierrez in the outpatient setting with a significant past medical history of asthma, coronary artery disease, prostate and colon cancer, diabetes mellitus, hyperlipidemia, hypertension, previous myocardial infarction with CABG and previous stenting, and osteoarthritis. Patient is a former smoker denies any other illicit drugs or alcohol use. Patient is status post surgical interve ntion and did have an episode of being aphasic and unable to speak almost immediately after Dilaudid was given and postop. Per general surgery neurology was consulted and CT brain was ordered and negative. Recommended to nursing staff to give Narcan which was administered and patient symptoms resolved. Recommend avoiding Dilaudid. 05/11/2024 Patient is seen in follow-up today appears more distended today and reports not feeling well continues with nausea and some vomiting. Patient currently on clear liquids recommend continuing and/or just sips of water and ice chips until improved. Patient reports has not passed gas today and denies any bowel movements. Abdominal binder noted and patient's abdomen is tender on palpation. Concerns for ileus. Patient is afebrile denies chest pain. Encourage incentive spirometer use and strongly recommend sitting up in the chair and getting up and ambulating more frequently. PT/OT therapy consulted 05/12/2024 Patient is seen in follow-up today was transferred to the ICU as patient was found to have an elevated heart rate and A-fib with the RVR. Cardiology consulted and patient was placed on heparin along with Cardizem drip. Per nursing staff Cardizem is being titrated and patient is continued on IV heparin and will be transition to metoprolol and recommend to continue IV heparin for now and will likely need Eliquis on discharge home. Patient currently rate controlled and will be a transfer out of the ICU once a bed is available. Ramu diallo reports some abdominal pain that is improving and reports to passing gas, would like an advance in diet. Patient is admitted under general surgery and diet is being advanced to low fiber. Encourage sitting up in the chair more often and increase activity as tolerated. 05/13/2024 Patient is seen in follow-up today admitted to general surgery with cardiology now following as patient has new onset A-fib, currently rate controlled and being maintained on metoprolol as well as IV heparin. Patient will need transition to Eliquis once cleared by surgery. Patient reports is eating some although not much of an appetite and reports to passing some minimal gas. Patient has not had a bowel movement as of yet. Patient continues on 2 L of oxygen and normally does not wear oxygen at home. Recommend continuing with incentive spirometer use and weaning FiO2 as tolerated. Will add breathing t reatments as needed as there was some faint wheezing noted on expiration. Diet being advanced per surgery. 05/14/2024 Patient is seen in follow-up today and he has been transferred over to medicine service per surgery as he is considered stable from surgical standpoint for discharge although having new onset A-fib with cardiology following making adjustments to medications. Patient is reporting multiple episodes of diarrhea and was maintained on IV antibiotics per general surgery and will obtain a C. difficile. Patient not eating very much although reports is holding it down a little better with less nausea associated. Patient has been encouraged to sit up in the chair more frequently and walk with increased activity as tolerated. Continue encouraging incentive spirometer use every hour. Review of systems: Constitutional: No reports of fatigue, fever, or chills Cardiovascular: No reports of chest pain or palpitations Respiratory: No reports of worsening shortness of breath or cough GI: No further reports of nausea or vomiting, patient reporting multiple episodes of loose stool , reports passing gas, continues to report poor appetite : No reports of dysuria or retention Neurovascular: reports of generalized weakness All medications have been reviewed PHYSICAL EXAMINATION: GENERAL: The patient is alert and oriented x3, appears more comfortable today. Well developed, elderly appearing, obese HEENT: Pupils are round and equally reacting to light. EOMI. No scleral icterus. No conjunctival pallor. Normocephalic, atraumatic. No pharyngeal erythema. No thyromegaly. CARDIOVASCULAR: S1 and S2 muffled PULMONARY: Diminished breath sounds bilaterally otherwise chest is clear to auscultation, a few faint crackles noted at the bases. ABDOMEN: Soft, tender, less distended, slightly improved today, bowel sounds noted. No palpable organomegaly. Binder noted MUSCULOSKELETAL: No joint swelling or deformity. EXTREMITIES: No cyanosis, clubbing, or pedal edema. NEUROLOGICAL: Gross neurological examination did not reveal any focal deficits. Diffusely weak SKIN: No rashes. Assessment: Status post cholecystectomy for gangrenous cholecystitis along with lysis of adh esions and incisional hernia repair Brief period of difficulty in speaking with aphasia, TIA versus CVA unlikely, likely medication effect from Dilaudid as symptoms started almost immediately after Dilaudid was given and resolved status post Narcan administration Atrial fibrillation with RVR, new onset, currently on IV heparin and being transition to Eliquis Abdominal pain with distention, concerns for ileus, improving patient is passing gas and reports to having a bowel movement Diarrhea, ruled out C. difficile History of asthma, not in exacerbation History of coronary artery disease with previous CABG and stenting Diabetes mellitus, type II Hyperlipidemia Hypertension Osteoarthritis Prostate and colon cancer Obesity with a BMI 31.6 Generalized weakness GI prophylaxis DVT prophylaxis Full code Plan: Patient admitted under surgery initially and surgery has cleared the patient although other medical issues ongoing and has transferred service over the medicine. Status post surgical intervention with cholecystectomy for gangrenous gallbladder along with lysis of adhesions and incisional hernia repair. Patient was brought to the ICU as a stepdown overflow for atrial fibrillation wi th RVR, new onset. Patient was started on Cardizem along with IV heparin and cardiology following and has transitioned to metoprolol recommending transitioning to Eliquis Encourage incentive spirometer use at least 10 times every hour while awake Recommend PT/OT therapy for evaluation and sitting up in the chair more often, per nursing staff patient had an unwitnessed fall as he was attempting to get to the bathroom quickly. Patient reported to staff that he fell onto his butt and denies hitting his head and was able to get back up on his own and get back into bed. Patient denying any injuries. Will monitor closely and have physical therapy reevaluate, plan will be to return home with home care Patient was having some increased abdominal distention with concerns for ileus. Patient reports to passing gas and reports improvement in abdominal pain requesting advance in diet. Per surgery patient being advanced low fiber, patient reports to having multiple episodes of loose stool today. C. difficile was tested and negative Recommend repeat labs to monitor kidney functions and electrolytes. Replace electrolytes per protocol The impression and plan of care has been dictated by Brandy Murphy, Nurse Practitioner as directed. Dr. Fabien MD I have performed a history and examination and MDM of this patient, discussed the same with the dictator, and agree with the dictator's assessment and plan as written ,documented as a scribe. Based on total visit time, I have performed more than 50% of the visit. Objective - Vital Signs Vital signs: Vital Signs Temp 98.2 F 05/13/24 19:42 Pulse 77 05/14/24 05:55 Resp 18 05/14/24 05:55 BP 159/78 05/14/24 05:55 Pulse Ox 99 05/14/24 05:55 FiO2 Intake & Output 05/13/24 05/14/24 05/14/24 18:59 06:59 18:59 Intake Total 240 250 Output Total 115 280 75 Balance 125 -30 -75 Weight 90.7 kg Intake: Intake, IV Titration 250 Amount Heparin Sod,Pork in 0.45% 250 NaCl 25,000 unit In 0.45 % NaCl 1 250ml.bag @ 11.6 UNITS/KG/HR 9.997 mls/hr IV .Q24H [facility] Rx#: [id number] Oral 240 Output: Drainage 115 280 75 Medial Abdomen 75 0 0 Right ABD 40 280 75 Other: Voiding Method Urinal Urinal # Voids 1 # Bowel Movements 1 1 - Labs CBC & Chem 7: 05/13/24 07:08 05/14/24 06:54 Labs: Abnormal Lab Results - Last 24 Hours (Table) 05/13/24 05/13/24 05/13/24 Range/Units 11:30 12:15 16:34 APTT (22.0-30.0) sec Carbon Dioxide (22-30) mmol/L BUN (9-20) mg/dL Creatinine (0.66-1.25) mg/dL Glucose (74-99) mg/dL POC Glucose (mg/dL) 148 H 151 H 153 H (70-110) mg/dL Calcium (8.4-10.2) mg/dL 05/13/24 05/14/24 05/14/24 Range/Units 21:18 06:16 06:54 APTT (22.0-30.0) sec Carbon Dioxide 16 L (22-30) mmol/L BUN 23 H (9-20) mg/dL Creatinine 1.33 H (0.66-1.25) mg/dL Glucose 112 H (74-99) mg/dL POC Glucose (mg/dL) 146 H 112 H (70-110) mg/dL Calcium 8.3 L (8.4-10.2) mg/dL 05/14/24 Range/Units 06:59 APTT 56.4 H (22.0-30.0) sec Carbon Dioxide (22-30) mmol/L BUN (9-20) mg/dL Creatinine (0.66-1.25) mg/dL Glucose (74-99) mg/dL POC Glucose (mg/dL) (70-110) mg/dL Calcium (8.4-10.2) mg/dL
[2024-05-15 05:47] LABS: Glucose,Whole Blood 135 mg/dL (70-110)
[2024-05-15 07:36] LABS: Basophils % (A) 0 %; Eosinophils # (A) 0.2 k/uL (0-0.7); Eosinophils % (A) 3 %; HGB 13.2 gm/dL (13.0-17.5); Hypochromasia Marked; Lymphocytes # (A) 1.2 k/uL (1.0-4.8); Lymphocytes % (A) 15 %; MCH 28.9 pg (25.0-35.0); MCHC 29.9 g/dL (31.0-37.0); MCV 96.7 fL (80.0-100.0); Mean Platelet Volume 7.7; Monocytes # (A) 0.6 k/uL (0-1.0); Monocytes % (A) 8 %; Neutrophils # (A) 5.7 k/uL (1.3-7.7); Neutrophils % (A) 71 %; Platelet Count 259 k/uL (150-450); RBC 4.55 m/uL (4.30-5.90)
[2024-05-15 08:08] LABS: African American GFR (CKD) 52 (>60 ml/min/1.73 sqM); Anion Gap 14 mmol/L; Blood Urea Nitrogen 21 mg/dL (9-20); Calcium 8.2 mg/dL (8.4-10.2); Carbon Dioxide 18 mmol/L (22-30); Chloride 104 mmol/L (98-107); Glucose 150 mg/dL (74-99); Non-African American GFR(CKD) 45 (>60 ml/min/1.73 sqM); Potassium 3.9 mmol/L (3.5-5.1); Sodium 136 mmol/L (137-145)
--- NOTE | 2024-05-15 10:53 | P.PN ---
Subjective Progress Note Date: 05/15/24 SURGICAL PROGRESS NOTE CHIEF COMPLAINT: Gangrenous cholecystitis HISTORY OF PRESENT ILLNESS: Patient is postop day #6 status post diagnostic laparoscopy, open cholecystectomy repair of small bowel, lysis of adhesions and repair of incisional hernia. Patient remains in the cardiac floor. His Eliquis anticoagulation started yesterday for his blood thinner. Patient has been having multiple loose stools. Stool for C. difficile was negative. Patient does report nausea. No vomiting. Reports a decreased appetite. His pain is controlled. Afebrile. Heart rate 107. WBC 8.0 Hgb 13.2 creatinine 1.44 JUNIOR drain with [address] Jones is covering for Dr. Womack PHYSICAL EXAM: VITAL SIGNS: Reviewed. GENERAL: Well-developed in no acute distress. ABDOMEN: Soft. Prevena wound VAC intact mild tenderness at incision site. NEUROLOGIC: Awake and alert ASSESSMENT: 1. Gangrenous cholecystitis, adhesions, incisional hernia 2. Difficulty with speech postoperatively likely due to pain medication and anesthesia. Symptoms improved after Narcan. Dilaudid was discontinued. Patient seen by neurology service. 3. Ileus resolved PLAN: -Discontinue Colace and Reglan due to diarrhea -Continue low-fat diet -Continue antibiotics -Discontinue Prevena wound VAC dressing tomorrow -Continue pain management -Encourage patient to increase activity level -Continue antiemetics as needed -Continue to monitor JUNIOR drain output -GI prophylaxis Protonix and DVT prophylaxis Lovenox Physician Channel Installer note has been reviewed by physician. Signing provider agrees with the documented findings, assessment, and plan of care. Please see additional documentation per MD below CHIEF COMPLAINT: Cholecystitis HISTORY OF PRESENT ILLNESS: The patient is a 83-year-old male with gangrenous cholecystitis. No reports of vomiting. He has low appetite. Heart rate continues to be elevated. He is having diarrhea. ROS: No new chest pain. No productive sputum PHYSICAL EXAM: VITAL SIGNS: Reviewed CONSTITUTIONAL: Well developed and in no acute distress. EYES: Conjuctivae without sclera icterus. Extraocular movements grossly intact. HEAD, EARS, NOSE, THROAT: Moist buccal mucosa. Head is atraumatic, normocephalic. Hears conversational speech. No nasal drainage. RESPIRATORY: Non-labored respirations and equal bilateral excursions. CARDIOVASCULAR: Palpable 2+ radial pulses. ABDOMEN: Incision intact. Jose Eduardo-Lambert serosanguineous. MUSCULOSKELETAL: No gross deformity of the lower extremities noted. No clubbing. No cyanosis. SKIN: Good skin turgor. Well perfused. NEUROLOGIC: Cranial nerves II through XII grossly intact. No focal or lateralizing signs. PSYCH: Appropriate affect. Alert and oriented to person, place and time. CLINICAL LABS: Reviewed. WBC normal. ASSESSMENT: 1. Gangrenous cholecystitis. 2. Diabetes type 2 PLAN: 1. Discontinue dairy products due to risk of lactose intolerance 2. Discontinue motility prokinetic agent such as Reglan and laxatives. 3. Continue antibiotics Objective - Vital Signs Vital signs: Vital Signs Temp 98.5 F 05/15/24 08:45 Pulse 107 H 05/15/24 08:45 Resp 17 05/15/24 08:45 BP 128/54 05/15/24 08:45 Pulse Ox 98 05/15/24 08:45 FiO2 Intake & Output 05/14/24 05/15/24 05/15/24 18:59 06:59 18:59 Intake Total 256 20 Output Total 275 220 115 Balance -19 -200 -115 Weight 91 kg Intake: IV 20 20 Invasive Line 3 10 Invasive Line 4 20 10 Oral 236 Output: Drainage 275 220 115 Medial Abdomen 0 0 0 Right ABD 275 220 115 Other: Voiding Method Urinal Bedside Commode # Voids 2 1 # Bowel Movements 1 1 - Labs CBC & Chem 7: 05/15/24 07:15 05/17/24 06:26 Labs: Abnormal Lab Results - Last 24 Hours (Table) 05/14/24 05/14/24 05/15/24 Range/Units 16:20 19:38 05:46 MCHC (31.0-37.0) g/dL Sodium (137-145) mmol/L Carbon Dioxide (22-30) mmol/L BUN (9-20) mg/dL Creatinine (0.66-1.25) mg/dL Glucose (74-99) mg/dL POC Glucose (mg/dL) 151 H 187 H 135 H (70-110) mg/dL Calcium (8.4-10.2) mg/dL 05/15/24 05/15/24 Range/Units 07:15 07:15 MCHC 29.9 L (31.0-37.0) g/dL Sodium 136 L (137-145) mmol/L Carbon Dioxide 18 L (22-30) mmol/L BUN 21 H (9-20) mg/dL Creatinine 1.44 H (0.66-1.25) mg/dL Glucose 150 H (74-99) mg/dL POC Glucose (mg/dL) (70-110) mg/dL Calcium 8.2 L (8.4-10.2) mg/dL Microbiology - Last 24 Hours (Table) 05/09/24 07:40 Blood Culture - Final Blood
[2024-05-15 11:29] LABS: Glucose,Whole Blood 193 mg/dL (70-110)
[2024-05-15] MEDS: PIPERACILLIN-TAZOBACTAM 3.375 GM in SODIUM CHLORIDE 0.9% 100 ML IVPB SCH (12:01)
--- NOTE | 2024-05-15 15:00 | P.PN ---
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 Patient previously followed in the office with Dr. Duarte and Dr. EDELMIRA Munoz however states he has been following with somebody else more recently. Patient presented with abdominal pain and nausea and found to have cholecystitis and underwent cholecystectomy. Initially patient was in normal sinus rhythm however noted on the floor to be in A-fib with RVR with heart rates in the 130s to 140s. Patient was predominantly asymptomatic and denies any chest pain or pressure. Denies any significant shortness of breath or fatigue. He was started on Cardizem drip with heart rates better controlled in the 70s. EKG showing LVH with strain with T wave inversions. 05/13 Patient seen and examined on the cardiac stepdown unit. Patient has been transferred out of the intensive care unit unit. Patient states I cannot eat, I have no appetite. He states his abdomen hurts when he coughs. Patient has been started on amiodarone drip and converted to sinus rhythm last evening. He is already on heparin drip for now until cleared by general surgery for Eliquis. Blood pressure 193/91, heart rate 84, pulse ox 95% on 1 L. 05/14/2024 Patient examined this morning the bedside. Patient currently denies chest pain or pressure. He denies shortness of breath. Telemetry reveals sinus mechanism. Patient is currently not eating much. 05/15/2024 Patient examined this morning at the bedside. Patient currently denies chest pain or pressure. He denies shortness of breath. Patient went back into atrial fibrillation. Heart rates are in the 90s. Patient's oral intake has increased. Echocardiogram completed revealing ejection fraction 50 to 55%, trace MR, trace TR. PHYSICAL EXAM: VITAL SIGNS: Reviewed. GENERAL: Well-developed in no acute distress. NECK: Supple. No JVD or thyromegaly LUNGS: Respirations even and unlabored. Lungs essentially clear to auscultation bilaterally. HEART: Irregular rate and rhythm. S1 and S2 heard. EXTREMITIES: Normal range of motion. No clubbing or cyanosis. Peripheral pulses intact. No lower extremity edema ASSESSMENT: Cholecystitis status postcholecystectomy New onset paroxysmal atrial fibrillation with RVR, converted to sinus rhythm, back in A-fib Acute kidney injury CAD status post CABG Hypertension Hyperlipidemia History of ischemic cardiomyopathy EF 45%, with improved EF 50 to 55% Diabetes mellitus Obesity CKD PLAN: Decrease amiodarone to 200 mg twice a day Continue additional cardiac medications including Eliquis, Lipitor, hydralazine, and metoprolol Resume Farxiga 10 mg daily No further inpatient recommendations from a cardiac standpoint We will sign off. Please reconsult if needed. Nurse practitioner note has been reviewed by physician. Signing provider agrees with the documented findings, assessment, and plan of care documented by [employer]ADESHOW WORKER as a scribe. Objective - Vital Signs Vital signs: Vital Signs Temp 98.6 F 05/15/24 13:08 Pulse 90 05/15/24 13:08 Resp 18 05/15/24 13:08 BP 152/74 05/15/24 13:08 Pulse Ox 96 05/15/24 13:08 FiO2 Intake & Output 05/14/24 05/15/24 05/15/24 18:59 06:59 18:59 Intake Total 256 20 180 Output Total 275 220 215 Balance -19 -200 -35 Weight 91 kg Intake: IV 20 20 Invasive Line 3 10 Invasive Line 4 20 10 Oral 236 180 Output: Drainage 275 220 215 Medial Abdomen 0 0 0 Right ABD 275 220 215 Other: Voiding Method Urinal Bedside Commode Bedside Commode # Voids 2 1 # Bowel Movements 1 1 - Labs CBC & Chem 7: 05/15/24 07:15 05/15/24 07:15 Labs: Abnormal Lab Results - Last 24 Hours (Table) 05/14/24 05/14/24 05/15/24 Range/Units 16:20 19:38 05:46 MCHC (31.0-37.0) g/dL Sodium (137-145) mmol/L Carbon Dioxide (22-30) mmol/L BUN (9-20) mg/dL Creatinine (0.66-1.25) mg/dL Glucose (74-99) mg/dL POC Glucose (mg/dL) 151 H 187 H 135 H (70-110) mg/dL Calcium (8.4-10.2) mg/dL 05/15/24 05/15/24 05/15/24 Range/Units 07:15 07:15 11:27 MCHC 29.9 L (31.0-37.0) g/dL Sodium 136 L (137-145) mmol/L Carbon Dioxide 18 L (22-30) mmol/L BUN 21 H (9-20) mg/dL Creatinine 1.44 H (0.66-1.25) mg/dL Glucose 150 H (74-99) mg/dL POC Glucose (mg/dL) 193 H (70-110) mg/dL Calcium 8.2 L (8.4-10.2) mg/dL Microbiology - Last 24 Hours (Table) 05/09/24 07:40 Blood Culture - Final Blood
[2024-05-15 16:24] LABS: Glucose,Whole Blood 159 mg/dL (70-110)
[2024-05-15 17:51] VITALS: BMI 33.3
[2024-05-15 21:52] LABS: Glucose,Whole Blood 187 mg/dL (70-110)
[2024-05-15] MEDS: AMIODARONE 200 MG TAB PO SCH (22:06)
--- NOTE | 2024-05-16 05:39 | P.PN ---
Subjective Progress Note Date: 05/15/24 - Reason for Consult Consult date: 05/10/24 Medical management, status post cholecystectomy - History of Present Illness This is a pleasant 83-year-old male who is admitted under general surgery services status post cholecystectomy which was noted to be gangrenous along with incisional hernia repair and lysis of adhesions. Patient follows with Dr. Gutierrez in the outpatient setting with a significant past medical history of asthma, coronary artery disease, prostate and colon cancer, diabetes mellitus, hyperlipidemia, hypertension, previous myocardial infarction with CABG and previous stenting, and osteoarthritis. Patient is a former smoker denies any other illicit drugs or alcohol use. Patient is status post surgical interve ntion and did have an episode of being aphasic and unable to speak almost immediately after Dilaudid was given and postop. Per general surgery neurology was consulted and CT brain was ordered and negative. Recommended to nursing staff to give Narcan which was administered and patient symptoms resolved. Recommend avoiding Dilaudid. 05/11/2024 Patient is seen in follow-up today appears more distended today and reports not feeling well continues with nausea and some vomiting. Patient currently on clear liquids recommend continuing and/or just sips of water and ice chips until improved. Patient reports has not passed gas today and denies any bowel movements. Abdominal binder noted and patient's abdomen is tender on palpation. Concerns for ileus. Patient is afebrile denies chest pain. Encourage incentive spirometer use and strongly recommend sitting up in the chair and getting up and ambulating more frequently. PT/OT therapy consulted 05/12/2024 Patient is seen in follow-up today was transferred to the ICU as patient was found to have an elevated heart rate and A-fib with the RVR. Cardiology consulted and patient was placed on heparin along with Cardizem drip. Per nursing staff Cardizem is being titrated and patient is continued on IV heparin and will be transition to metoprolol and recommend to continue IV heparin for now and will likely need Eliquis on discharge home. Patient currently rate controlled and will be a transfer out of the ICU once a bed is available. Ramu diallo reports some abdominal pain that is improving and reports to passing gas, would like an advance in diet. Patient is admitted under general surgery and diet is being advanced to low fiber. Encourage sitting up in the chair more often and increase activity as tolerated. 05/13/2024 Patient is seen in follow-up today admitted to general surgery with cardiology now following as patient has new onset A-fib, currently rate controlled and being maintained on metoprolol as well as IV heparin. Patient will need transition to Eliquis once cleared by surgery. Patient reports is eating some although not much of an appetite and reports to passing some minimal gas. Patient has not had a bowel movement as of yet. Patient continues on 2 L of oxygen and normally does not wear oxygen at home. Recommend continuing with incentive spirometer use and weaning FiO2 as tolerated. Will add breathing t reatments as needed as there was some faint wheezing noted on expiration. Diet being advanced per surgery. 05/14/2024 Patient is seen in follow-up today and he has been transferred over to medicine service per surgery as he is considered stable from surgical standpoint for discharge although having new onset A-fib with cardiology following making adjustments to medications. Patient is reporting multiple episodes of diarrhea and was maintained on IV antibiotics per general surgery and will obtain a C. difficile. Patient not eating very much although reports is holding it down a little better with less nausea associated. Patient has been encouraged to sit up in the chair more frequently and walk with increased activity as tolerated. Continue encouraging incentive spirometer use every hour. 05/15/2024 Patient seen in follow-up today continuing to report multiple episodes of loose stool. C. difficile testing was negative and will add Imodium as needed as well as some Questran. Encourage increase activity as tolerated including sitting up at the chair. Patient has been transition to oral amiodarone and will continue taper with cardiology following making adjustments to medications recommending outpatient follow-up. General surgery following as well and will need close outpatient follow-up. Continues to have poor appetite and encourage small frequent meals. Continue with supplements between meals. Review of systems: Constitutional: No reports of fatigue, fever, or chills Cardiovascular: No reports of chest pain or palpitations Respiratory: No reports of worsening shortness of breath or cough GI: No further reports of nausea or vomiting, patient reporting multiple epi sodes of loose stool , reports passing gas, continues to report poor appetite : No reports of dysuria or retention Neurovascular: reports of generalized weakness All medications have been reviewed PHYSICAL EXAMINATION: GENERAL: The patient is alert and oriented x3, appears more comfortable today. Well developed, elderly appearing, obese HEENT: Pupils are round and equally reacting to light. EOMI. No scleral icterus. No conjunctival pallor. Normocephalic, atraumatic. No pharyngeal erythema. No thyromegaly. CARDIOVASCULAR: S1 and S2 muffled PULMONARY: Diminished breath sounds bilaterally otherwise chest is clear to auscultation, a few faint crackles noted at the bases. ABDOMEN: Soft, tender, less distended, slightly improved today, bowel sounds noted. No palpable organomegaly. Binder noted MUSCULOSKELETAL: No joint swelling or deformity. EXTREMITIES: No cyanosis, clubbing, or pedal edema. NEUROLOGICAL: Gross neurological examination did not reveal any focal deficits. Diffusely weak SKIN: No rashes. Assessment: Status post cholecystectomy for gangrenous cholecystitis along with lysis of adhesions and incisional hernia repair Brief period of difficulty in speaking with aphasia, TIA versus CVA unlikely, likely medication effect from Dilaudid as symptoms started almost immediately after Dilaudid was given and resolved status post Narcan administration Atrial fibrillation with RVR, new onset, currently on IV heparin and being transition to Eliquis Abdominal pain with distention, concerns for ileus, improving patient is passing gas and reports to having a bowel movement Diarrhea, ruled out C. difficile History of asthma, not in exacerbation History of coronary artery disease with previous CABG and stenting Diabetes mellitus, type II Hyperlipidemia Hypertension Osteoarthritis Prostate and colon cancer Obesity with a BMI 31.6 Generalized weakness GI prophylaxis DVT prophylaxis Full code Plan: Patient admitted under surgery initially and surgery has cleared the patient although other medical issues ongoing and has transferred service over the medicine. Status post surgical intervention with cholecystectomy for gangrenous gallbladder along with lysis of adhesions and incisional hernia repair. Cardiology following and has made adjustments to medications and will continue amiodarone taper and has been transition to Eliquis with no further recommendati ons other than outpatient follow-up. Cardiology is signing off Encourage incentive spirometer use at least 10 times every hour while awake Patient evaluated by physical therapy with plans on returning home with family. Patient encouraged to sit up in the chair more often Patient did have multiple episodes of loose stool and C. difficile was negative will add Imodium as needed as well as Questran Recommend repeat labs to monitor kidney functions and electrolytes. Replace electrolytes per protocol Possible discharge planning in the next 24 hours The impression and plan of care has been dictated by Brandy Murphy, Nurse Practitioner as directed. Dr. Fabien MD I have performed a history and examination and MDM of this patient, discussed the same with the dictator, and agree with the dictator's assessment and plan as written ,documented as a scribe. Based on total visit time, I have performed more than 50% of the visit. Objective - Vital Signs Vital signs: Vital Signs Temp 98.4 F 05/16/24 01:22 Pulse 113 H 05/16/24 01:22 Resp 16 05/16/24 01:22 BP 147/69 05/16/24 01:22 Pulse Ox 91 L 05/16/24 01:22 FiO2 Intake & Output 05/15/24 05/15/24 05/16/24 06:59 18:59 06:59 Intake Total 20 180 50 Output Total 220 340 195 Balance -200 -160 -145 Weight 91 kg 91 kg Intake: IV 20 Invasive Line 3 10 Invasive Line 4 10 Oral 180 50 Output: Drainage 220 340 195 Medial Abdomen 0 0 0 Right ABD 220 340 195 Other: Voiding Method Bedside Commode Bedside Commode # Voids 1 2 # Bowel Movements 1 1 - Labs CBC & Chem 7: 05/15/24 07:15 05/15/24 07:15 Labs: Abnormal Lab Results - Last 24 Hours (Table) 05/15/24 05/15/24 05/15/24 Range/Units 05:46 07:15 07:15 MCHC 29.9 L (31.0-37.0) g/dL Sodium 136 L (137-145) mmol/L Carbon Dioxide 18 L (22-30) mmol/L BUN 21 H (9-20) mg/dL Creatinine 1.44 H (0.66-1.25) mg/dL Glucose 150 H (74-99) mg/dL POC Glucose (mg/dL) 135 H (70-110) mg/dL Calcium 8.2 L (8.4-10.2) mg/dL 05/15/24 05/15/24 05/15/24 Range/Units 11:27 16:21 21:51 MCHC (31.0-37.0) g/dL Sodium (137-145) mmol/L Carbon Dioxide (22-30) mmol/L BUN (9-20) mg/dL Creatinine (0.66-1.25) mg/dL Glucose (74-99) mg/dL POC Glucose (mg/dL) 193 H 159 H 187 H (70-110) mg/dL Calcium (8.4-10.2) mg/dL
[2024-05-16 06:15] LABS: Glucose,Whole Blood 143 mg/dL (70-110)
[2024-05-16] MEDS: DAPAGLIFLOZIN PROPANEDIOL 10 MG TABLET PO SCH (08:04)
--- NOTE | 2024-05-16 10:30 | P.PN ---
Subjective Progress Note Date: 05/16/24 SURGICAL PROGRESS NOTE CHIEF COMPLAINT: Gangrenous cholecystitis HISTORY OF PRESENT ILLNESS: Patient is postop day #7 status post diagnostic laparoscopy, open cholecystectomy repair of small bowel, lysis of adhesions and repair of incisional hernia. Patient currently on a regular medical floor. He reports overall feeling better today. He is sitting up at bedside chair. He was able to eat dinner. His pain is controlled. He is having bowel movements and they are not as frequent. Afebrile. Labs pending Dr. Jones is covering for Dr. Womack PHYSICAL EXAM: VITAL SIGNS: Reviewed. GENERAL: Well-developed in no acute distress. ABDOMEN: Soft. Mildly distended. Prevena wound VAC removed. Incision site clean dry and intact. JUNIOR drain serosanguineous drainage NEUROLOGIC: Awake and alert ASSESSMENT: 1. Gangrenous cholecystitis, adhesions, incisional hernia 2. Difficulty with speech postoperatively likely due to pain medication and anesthesia. Symptoms improved after Narcan. Dilaudid was discontinued. Patient seen by neurology service. 3. Ileus resolved PLAN: -Incision cleaned with chlorhexidine wipe and covered with ABD pads -Continue low-fat diet -Continue antibiotics -Continue pain management -Encourage patient to increase activity level -Continue to monitor JUNIOR drain output -GI prophylaxis Protonix and DVT prophylaxis Lovenox Physician Breast Surgeon note has been reviewed by physician. Signing provider agrees with the documented findings, assessment, and plan of care. Please see additional documentation per MD below CHIEF COMPLAINT: Cholecystitis HISTORY OF PRESENT ILLNESS: The patient is a 83-year-old male with gangrenous cholecystitis. He was on high dairy products. This is now resolved. He is feeling better. No fevers or chills. ROS: No new chest pain. No productive sputum PHYSICAL EXAM: VITAL SIGNS: Reviewed CONSTITUTIONAL: Well developed and in no acute distress. EYES: Conjuctivae without sclera icterus. Extraocular movements grossly intact. HEAD, EARS, NOSE, THROAT: Moist buccal mucosa. Head is atraumatic, normocephalic. Hears conversational speech. No nasal drainage. RESPIRATORY: Non-labored respirations and equal bilateral excursions. CARDIOVASCULAR: Palpable 2+ radial pulses. ABDOMEN: Incision intact. Jose Eduardo-Lambert serosanguineous. MUSCULOSKELETAL: No gross deformity of the lower extremities noted. No clubbin g. No cyanosis. SKIN: Good skin turgor. Well perfused. NEUROLOGIC: Cranial nerves II through XII grossly intact. No focal or lateralizing signs. PSYCH: Appropriate affect. Alert and oriented to person, place and time. CLINICAL LABS: Reviewed. WBC normal. ASSESSMENT: 1. Gangrenous cholecystitis. 2. Diabetes type 2 PLAN: 1. Continue low fat diet and dairy free diet 2. Patient may continue to have outside food for his choice 3. Continue JUNIOR drain Objective - Vital Signs Vital signs: Vital Signs Temp 98.0 F 05/16/24 06:40 Pulse 54 L 05/16/24 06:40 Resp 16 05/16/24 06:40 BP 120/67 05/16/24 06:40 Pulse Ox 96 05/16/24 06:40 FiO2 Intake & Output 05/15/24 05/16/24 05/16/24 18:59 06:59 18:59 Intake Total 180 50 250 Output Total 340 275 40 Balance -160 -225 210 Weight 91 kg Intake: Oral 180 50 250 Output: Drainage 340 275 40 Medial Abdomen 0 0 Right ABD 340 275 40 Other: Voiding Method Bedside Commode # Voids 2 # Bowel Movements 1 - Labs CBC & Chem 7: 05/15/24 07:15 05/17/24 06:26 Labs: Abnormal Lab Results - Last 24 Hours (Table) 05/15/24 05/15/24 05/15/24 Range/Units 11:27 16:21 21:51 POC Glucose (mg/dL) 193 H 159 H 187 H (70-110) mg/dL 05/16/24 Range/Units 06:14 POC Glucose (mg/dL) 143 H (70-110) mg/dL
[2024-05-16 10:49] LABS: BUN/Creat Ratio 11.19 Ratio (12.00-20.00); Blood Urea Nitrogen 17.9 mg/dL (9.0-27.0); Calcium 8.1 mg/dL (8.7-10.3); Carbon Dioxide 21.1 mmol/L (21.6-31.8); Chloride 105 mmol/L (96-109); Glucose 172 mg/dL (70-110); Potassium 3.9 mmol/L (3.5-5.5); Sodium 141 mmol/L (135-145)
[2024-05-16] MEDS: CHOLESTYRAMINE (WITH SUGAR) 4 GM PACKET PO SCH (11:42)
[2024-05-16] MEDS: LOPERAMIDE 2 MG CAP PO PRN (11:42)
[2024-05-16 12:18] LABS: Glucose,Whole Blood 181 mg/dL (70-110)
[2024-05-16] MEDS: PIPERACILLIN-TAZOBACTAM 3.375 GM in SODIUM CHLORIDE 0.9% 100 ML IVPB SCH (15:33)
[2024-05-16 16:39] LABS: Glucose,Whole Blood 168 mg/dL (70-110)
[2024-05-16 20:31] LABS: Glucose,Whole Blood 213 mg/dL (70-110)
[2024-05-16] MEDS: APIXABAN 2.5 MG TABLET PO SCH (21:09)
--- NOTE | 2024-05-17 05:42 | P.PN ---
Subjective Progress Note Date: 05/16/24 - Reason for Consult Consult date: 05/10/24 Medical management, status post cholecystectomy - History of Present Illness This is a pleasant 83-year-old male who is admitted under general surgery services status post cholecystectomy which was noted to be gangrenous along with incisional hernia repair and lysis of adhesions. Patient follows with Dr. Gutierrez in the outpatient setting with a significant past medical history of asthma, coronary artery disease, prostate and colon cancer, diabetes mellitus, hyperlipidemia, hypertension, previous myocardial infarction with CABG and previous stenting, and osteoarthritis. Patient is a former smoker denies any other illicit drugs or alcohol use. Patient is status post surgical interve ntion and did have an episode of being aphasic and unable to speak almost immediately after Dilaudid was given and postop. Per general surgery neurology was consulted and CT brain was ordered and negative. Recommended to nursing staff to give Narcan which was administered and patient symptoms resolved. Recommend avoiding Dilaudid. 05/11/2024 Patient is seen in follow-up today appears more distended today and reports not feeling well continues with nausea and some vomiting. Patient currently on clear liquids recommend continuing and/or just sips of water and ice chips until improved. Patient reports has not passed gas today and denies any bowel movements. Abdominal binder noted and patient's abdomen is tender on palpation. Concerns for ileus. Patient is afebrile denies chest pain. Encourage incentive spirometer use and strongly recommend sitting up in the chair and getting up and ambulating more frequently. PT/OT therapy consulted 05/12/2024 Patient is seen in follow-up today was transferred to the ICU as patient was found to have an elevated heart rate and A-fib with the RVR. Cardiology consulted and patient was placed on heparin along with Cardizem drip. Per nursing staff Cardizem is being titrated and patient is continued on IV heparin and will be transition to metoprolol and recommend to continue IV heparin for now and will likely need Eliquis on discharge home. Patient currently rate controlled and will be a transfer out of the ICU once a bed is available. Ramu diallo reports some abdominal pain that is improving and reports to passing gas, would like an advance in diet. Patient is admitted under general surgery and diet is being advanced to low fiber. Encourage sitting up in the chair more often and increase activity as tolerated. 05/13/2024 Patient is seen in follow-up today admitted to general surgery with cardiology now following as patient has new onset A-fib, currently rate controlled and being maintained on metoprolol as well as IV heparin. Patient will need transition to Eliquis once cleared by surgery. Patient reports is eating some although not much of an appetite and reports to passing some minimal gas. Patient has not had a bowel movement as of yet. Patient continues on 2 L of oxygen and normally does not wear oxygen at home. Recommend continuing with incentive spirometer use and weaning FiO2 as tolerated. Will add breathing t reatments as needed as there was some faint wheezing noted on expiration. Diet being advanced per surgery. 05/14/2024 Patient is seen in follow-up today and he has been transferred over to medicine service per surgery as he is considered stable from surgical standpoint for discharge although having new onset A-fib with cardiology following making adjustments to medications. Patient is reporting multiple episodes of diarrhea and was maintained on IV antibiotics per general surgery and will obtain a C. difficile. Patient not eating very much although reports is holding it down a little better with less nausea associated. Patient has been encouraged to sit up in the chair more frequently and walk with increased activity as tolerated. Continue encouraging incentive spirometer use every hour. 05/15/2024 Patient seen in follow-up today continuing to report multiple episodes of loose stool. C. difficile testing was negative and will add Imodium as needed as well as some Questran. Encourage increase activity as tolerated including sitting up at the chair. Patient has been transition to oral amiodarone and will continue taper with cardiology following making adjustments to medications recommending outpatient follow-up. General surgery following as well and will need close outpatient follow-up. Continues to have poor appetite and encourage small frequent meals. Continue with supplements between meals. 05/16/2024 Patient is seen in follow-up today currently sitting up in the chair reports to feeling much better although patient continues to have multiple episodes of loose stools. C. difficile testing was negative and will continue with Imodium as well as Questran. Patient reports he feels there is some minimal formation of stool and will continue current regimen. General surgery also following recommending to continue with antibiotics for now and patient continues to have significant output in the JUNIOR that is mostly clear. Recommend monitoring overnight and educating the patient on JUNIOR drainage and suction as patient will likely return home with this. Plan is for patient to return home with home care being arranged. Encouraged increase activity as tolerated and discussing possible discharge in the next 24 hours. Cardiology has evaluated the patient making adjustments to medications for A-fib and will continue current regimen recommending outpatient follow-up. Review of systems: Constitutional: No reports of fatigue, fever, or chills Cardiovascular: No reports of chest pain or palpitations Respiratory: No reports of worsening shortness of breath or cough GI: No further reports of nausea or vomiting, patient reporting multiple episodes of loose stool , reports passing gas, reports eating a little more today : No reports of dysuria or retention Neurovascular: reports of generalized weakness All medications have been reviewed PHYSICAL EXAMINATION: GENERAL: The patient is alert and oriented x3, appears more comfortable today. Well developed, elderly appearing, obese HEENT: Pupils are round and equally reacting to light. EOMI. No scleral icterus. No conjunctival pallor. Normocephalic, atraumatic. No pharyngeal erythema. No thyromegaly. CARDIOVASCULAR: S1 and S2 muffled PULMONARY: Diminished breath sounds bilaterally otherwise chest is clear to auscultation, a few faint crackles noted at the bases. ABDOMEN: Soft, tender, less distended, slightly improved today, bowel sounds noted. No palpable organomegaly. Binder noted MUSCULOSKELETAL: No joint swelling or deformity. EXTREMITIES: No cyanosis, clubbing, or pedal edema. NEUROLOGICAL: Gross neurological examination did not reveal any focal deficits. Diffusely weak SKIN: No rashes. Assessment: Status post cholecystectomy for gangrenous cholecystitis along with lysis of a dhesions and incisional hernia repair Brief period of difficulty in speaking with aphasia, TIA versus CVA unlikely, likely medication effect from Dilaudid as symptoms started almost immediately after Dilaudid was given and resolved status post Narcan administration Atrial fibrillation with RVR, new onset, transition to oral Eliquis and oral amiodarone, currently rate controlled Abdominal pain with distention, concerns for ileus, improved Diarrhea, ruled out C. difficile History of asthma, not in exacerbation History of coronary artery disease with previous CABG and stenting Diabetes mellitus, type II Hyperlipidemia Hypertension Osteoarthritis Prostate and colon cancer Obesity with a BMI 31.6 Generalized weakness GI prophylaxis DVT prophylaxis Full code Plan: Patient admitted under surgery initially and surgery has cleared the patient although other medical issues ongoing and has transferred service over the medicine. Status post surgical intervention with cholecystectomy for gangrenous gallbladder along with lysis of adhesions and incisional hernia repair. Cardiology has evaluated the patient for A-fib currently transition to oral Eliquis as well as amiodarone. Patient will need close outpatient follow-up with cardiology on discharge. Cardiology has cleared the patient for discharge Encourage incentive spirometer use at least 10 times every hour while awake Patient evaluated by physical therapy with plans on returning home with family. Patient encouraged to sit up in the chair more often. Recommend home care Patient did have multiple episodes of loose stool and C. difficile was negative we will continue Imodium as well as Questran. Monitor overnight for improveme nts in diarrhea as patient reports having multiple episodes although is becoming less frequent Monitor JUNIOR drain output and will likely be going home with this per surgery. Surgery has resumed antibiotics and will likely complete a short course of oral antibiotic on discharge Possible discharge planning in the next 24 hours The impression and plan of care has been dictated by Brandy Murphy, Nurse Practitioner as directed. Dr. Fabien MD I have performed a history and examination and MDM of this patient, discussed the same with the dictator, and agree with the dictator's assessment and plan as written ,documented as a scribe. Based on total visit time, I have performed more than 50% of the visit. Objective - Vital Signs Vital signs: Vital Signs Temp 98.0 F 05/16/24 06:40 Pulse 54 L 05/16/24 06:40 Resp 16 05/16/24 06:40 BP 120/67 05/16/24 06:40 Pulse Ox 96 05/16/24 06:40 FiO2 Intake & Output 05/15/24 05/16/24 05/16/24 18:59 06:59 18:59 Intake Total 180 50 250 Output Total 340 275 Balance -160 -225 250 Weight 91 kg Intake: Oral 180 50 250 Output: Drainage 340 275 Medial Abdomen 0 0 Right ABD 340 275 Other: Voiding Method Bedside Commode # Voids 2 # Bowel Movements 1 - Labs CBC & Chem 7: 05/15/24 07:15 05/16/24 06:23 Labs: Abnormal Lab Results - Last 24 Hours (Table) 05/15/24 05/15/24 05/15/24 Range/Units 11:27 16:21 21:51 POC Glucose (mg/dL) 193 H 159 H 187 H (70-110) mg/dL 03/05/25 Range/Units 06:14 POC Glucose (mg/dL) 143 H (70-110) mg/dL
[2024-05-17 06:35] LABS: Glucose,Whole Blood 165 mg/dL (70-110)
[2024-05-17 08:49] VITALS: RESP 17
[2024-05-17 10:53] LABS: BUN/Creat Ratio 8.25 Ratio (12.00-20.00); Blood Urea Nitrogen 13.2 mg/dL (9.0-27.0); Calcium 8.4 mg/dL (8.7-10.3); Carbon Dioxide 23.7 mmol/L (21.6-31.8); Chloride 105 mmol/L (96-109); Glucose 195 mg/dL (70-110); Magnesium 1.9 mg/dL (1.5-2.4); Potassium 3.6 mmol/L (3.5-5.5); Sodium 141 mmol/L (135-145)
[2024-05-17 11:46] LABS: Glucose,Whole Blood 189 mg/dL (70-110)
--- NOTE | 2024-05-17 12:17 | P.PN ---
Subjective Progress Note Date: 05/17/24 SURGICAL PROGRESS NOTE CHIEF COMPLAINT: Gangrenous cholecystitis HISTORY OF PRESENT ILLNESS: Patient is postop day #8 status post diagnostic laparoscopy, open cholecystectomy repair of small bowel, lysis of adhesions and repair of incisional hernia. Abdominal pain controlled. Last bowel movement charted May 16. He is having flatus. He is ambulating. JUNIOR drain with 430 mL serosanguineous output through the night and 40 mL this morning. PHYSICAL EXAM: VITAL SIGNS: Reviewed. GENERAL: Well-developed in no acute distress. ABDOMEN: Soft. Mildly distended. Incision site clean dry and intact. JUNIOR drain serous in color NEUROLOGIC: Awake and alert ASSESSMENT: 1. Gangrenous cholecystitis, adhesions, incisional hernia 2. Difficulty with speech postoperatively likely due to pain medication and anesthesia. Symptoms improved after Narcan. Dilaudid was discontinued. Patient seen by neurology service. 3. Ileus resolved PLAN: -Can be discharged from surgical standpoint -Discontinue JUNIOR drain prior to discharge -No further antibiotics needed after discharge -Continue low-fat diet -Continue pain management -Encourage patient to increase activity level -GI prophylaxis Protonix and DVT prophylaxis Lovenox Physician Car Seat Coverer note has been reviewed by physician. Signing provider agrees with the documented findings, assessment, and plan of care. Objective - Vital Signs Vital signs: Vital Signs Temp 97.9 F 05/17/24 08:00 Pulse 64 05/17/24 08:00 Resp 17 05/17/24 08:00 BP 142/72 05/17/24 08:00 Pulse Ox 98 05/17/24 08:00 FiO2 Intake & Output 05/16/24 05/17/24 05/17/24 18:59 06:59 18:59 Intake Total 250 Output Total 230 360 140 Balance 20 -360 -140 Intake: Oral 250 Output: Drainage 230 360 140 Right ABD 230 360 140 Other: Voiding Method Toilet # Voids 2 5 # Bowel Movements 2 - Labs CBC & Chem 7: 05/15/24 07:15 05/17/24 06:26 Labs: Abnormal Lab Results - Last 24 Hours (Table) 05/16/24 05/16/24 05/16/24 Range/Units 12:16 16:38 20:28 Anion Gap (4.00-12.00) mmol/L Creatinine (0.6-1.5) mg/dL Est GFR (CKD-EPI) (>=60) BUN/Creatinine Ratio (12.00-20.00) Ratio Glucose (70-110) mg/dL POC Glucose (mg/dL) 181 H 168 H 213 H (70-110) mg/dL Calcium (8.7-10.3) mg/dL 05/17/24 05/17/24 Range/Units 06:26 06:32 Anion Gap 12.30 H (4.00-12.00) mmol/L Creatinine 1.6 H (0.6-1.5) mg/dL Est GFR (CKD-EPI) 43 L (>=60) BUN/Creatinine Ratio 8.25 L (12.00-20.00) Ratio Glucose 195 H (70-110) mg/dL POC Glucose (mg/dL) 165 H (70-110) mg/dL Calcium 8.4 L (8.7-10.3) mg/dL
[2024-05-17 14:27] VITALS: BP 144/65; PULSE 81; TEMP 98.4
--- NOTE | 2024-05-19 11:30 | CDI ---
Documentation Clarification Form Date: 05/19/24 From: NAYELI Freire Admit Date: 05/09/2024 08:28:00 AM Patient Name: Issa Jennings Visit Number: [id number] Discharge Date: 05/17/2024 03:40:00 PM ATTENTION: The Clinical Documentation Specialists (CDI) and [facility] Coding Staff appreciate your assistance in clarifying documentation. Please respond to the clarification below the line at the bottom and electronically sign. The CDI & [facility] Coding staff will review the response and follow-up if needed. Please note: Queries are made part of the Legal Health Record. If you have any questions, please contact the author of this message via ITS. Doctor/Provider: Daryl Womack The final diagnosis of the pathology report states Acute and chronic necrotic cholecystitis with cholelithiasis. Coding guidelines do not allow coding professionals to code based on pathology results; therefore, clarification is requested. History/risk factors: Patient presented with RUQ pain and plans were made for laparoscopic cholecystectomy. Clinical Indicators: CT findings from 05/09 suggest acute cholecystitis Treatment: Laparoscopic cholecystectomy Please clarify if you agree with the pathology report diagnosis of Acute and chronic necrotic cholecystitis with cholelithiasis: [ ] Yes [ ] No [ ] Other (please specify) [ ] Unable to determine MTDD
--- NOTE | 2024-05-20 00:40 | P.DS ---
Providers Date of admission: 05/09/24 08:28 Attending physician: Sil Kenney Consults: 05/09/24 12:53 Consult Physician Routine Consulting Provider: Sil Kenney Consult Reason/Comments: Medical management Do you want consulting provider notified?: Already Contacted 05/09/24 15:35 Consult Physician Routine Consulting Provider: Gregorio Barrera Consult Reason/Comments: difficulty with speech Do you want consulting provider notified?: Yes Primary care physician: Emely Gutierrez Hospital Course: Final Diagnosis Status post cholecystectomy for gangrenous cholecystitis along with lysis of adhesions and incisional hernia repair Brief period of difficulty in speaking with aphasia, TIA versus CVA unlikely, likely medication effect from Dilaudid as symptoms started almost immediately after Dilaudid was given and resolved status post Narcan administration Atrial fibrillation with RVR, new onset, transition to oral Eliquis and oral amiodarone, currently rate controlled Abdominal pain with distention, concerns for ileus, improved Diarrhea, ruled out C. difficile History of asthma, not in exacerbation History of coronary artery disease with previous CABG and stenting Diabetes mellitus, type II Hyperlipidemia Hypertension Osteoarthritis Prostate and colon cancer Obesity with a BMI 31.6 Generalized weakness Discharge Disposition Patient stable for discharge home. Patient has been started on oral Eliquis 2.5 mg twice daily as well as oral metoprolol 50 mg twice daily and oral amiodarone 200 mg twice daily for the new onset atrial fibrillation. JUNIOR drains have been pulled prior to discharge. Patient to follow-up with Dr. Womack in 2 weeks has an appointment scheduled for May 24. Patient to follow-up with his PCP Dr. Emely Gutierrez and has an appointment scheduled for May 25. Patient has a cardiology follow-up scheduled for May 31. Patient will repeat a basic metabolic panel in 3 days. Hospital Course This is a pleasant 83-year-old male who is admitted under general surgery services status post cholecystectomy which was noted to be gangrenous along with incisional hernia repair and lysis of adhesions. Patient follows with Dr. Gutierrez in the outpatient setting with a significant past medical history of asthma, coronary artery disease, prostate and colon cancer, diabetes mellitus, hyperlipidemia, hypertension, previous myocardial infarction with CABG and previous stenting, and osteoarthritis. Patient is a former smoker denies any other illicit drugs or alcohol use. Patient is status post surgical intervention and did have an episode of being aphasic and unable to speak almost immediately after Dilaudid was given and postop. Per general surgery neurology was consulted and CT brain was ordered and negative. Recommended to nursing staff to give Narcan which was administered and patient symptoms resolved. Recommend avoiding Dilaudid. Patient was transferred to the intensive care unit with concerns for ileus and vomiting with abdominal distention. He was found to have atrial fibrillation with rapid ventricular rate he was started on IV heparin and IV Cardizem. He was transitioned to oral metoprolol and no started on low fiber diet. Patient has been passing gas postoperatively. Patient remains in atrial fibrillation however his rate is controlled. He has been transition to oral Eliquis. Patient was having some diarrhea postsurgically which is not resolved and his C. difficile was found to be negative. Patient was having a significant drainage from his JUNIOR drain however was clear in nature and not of concern per general surgery and JUNIOR drains were discontinued prior to discharge. Patient was moved out of the intensive care unit and monitored on the medical floor he has been up in the chair has been ambulating without difficulty he is awake alert and oriented he is no longer having any focal logical deficits. He has been tolerating diet he is having bowel movements. His most recent blood work reveals a white blood cell count of 8.0, sodium 141, potassium 3.6, BUN 14.2, creatinine 1.6, magnesium 1.9 she has been cleared for discharge home. Please see medication reconciliation for a list of current medications. Thank you for allowing us to participate in the care of this patient. The impression and plan of care has been dictated by Florence Carter Nurse Practitioner as directed. Dr. Fabien MD I have performed a history and physical examination and medical decision making of this patient, discussed the same with the dictator, and agree with the dictators assessment and plan as written, documented as a scribe. Based on total visit time, I have performed more than 50% of this visit. Patient Condition at Discharge: Stable Plan - Discharge Summary Discharge Rx Participant: Yes New Discharge Prescriptions: New Metoprolol Tartrate [Lopressor] 50 mg PO BID #60 tab Pantoprazole [Protonix] 40 mg PO DAILY #30 tab hydrALAZINE HCL [Apresoline] 25 mg PO TID #90 tab Amiodarone [Cordarone] 200 mg PO BID #60 tab Apixaban [Eliquis] 2.5 mg PO BID #60 tab Continue Ergocalciferol [Vitamin D2 (1250 Mcg = 35355 Iu)] 1,250 mcg PO Q7D Atorvastatin [Lipitor] 40 mg PO DAILY Empagliflozin [Jardiance] 10 mg PO DAILY glyBURIDE [Diabeta] 5 mg PO BID sitaGLIPtin [Januvia] 100 mg PO DAILY Discontinued Aspirin EC [Ecotrin Low Dose] 81 mg PO DAILY #60 tablet. Metoprolol Tartrate [Lopressor] 25 mg PO BID hydroCHLOROthiazide [Hydrodiuril] 25 mg PO DAILY Losartan Potassium 100 mg PO DAILY Discharge Medication List Ergocalciferol [Vitamin D2 (1250 Mcg = 99349 Iu)] 1,250 mcg PO Q7D 12/10/20 [History] Atorvastatin [Lipitor] 40 mg PO DAILY 05/09/24 [History] Empagliflozin [Jardiance] 10 mg PO DAILY 05/09/24 [History] glyBURIDE [Diabeta] 5 mg PO BID 05/09/24 [History] sitaGLIPtin [Januvia] 100 mg PO DAILY 05/09/24 [History] Amiodarone [Cordarone] 200 mg PO BID #60 tab 05/17/24 [Rx] Apixaban [Eliquis] 2.5 mg PO BID #60 tab 05/17/24 [Rx] Metoprolol Tartrate [Lopressor] 50 mg PO BID #60 tab 05/17/24 [Rx] Pantoprazole [Protonix] 40 mg PO DAILY #30 tab 05/17/24 [Rx] hydrALAZINE HCL [Apresoline] 25 mg PO TID #90 tab 05/17/24 [Rx] Follow up Appointment(s)/Referral(s): Cory Escalona DO [STAFF PHYSICIAN] - 05/31/24 1:30 pm [facility], [NON-STAFF] - As Needed ([facility] will call you to schedule your in home nursing visits. ) Emely Gutierrez DO [Primary Care Provider] - 05/25/24 11:15 am Daryl Womack MD [STAFF PHYSICIAN] - 05/24/24 2:30 pm Ambulatory/Diagnostic Orders: Basic Metabolic Panel [LAB.AMB] Time Frame: 3 Days, Location: None Selected Activity/Diet/Wound Care/Special Instructions: No lifting over 10 pounds Shower daily starting tomorrow. No soaking or tub baths for 2 weeks Very light activity until you are reevaluated at your follow up appointment with your surgeon Discharge Disposition: HOME SELF-CARE
== END 2024-05-17 15:40 | disposition home health service (06) | DRG 415 ==
LOC: EC 04:56 → OBSVTOIN 08:28 → 6NMEDSUR 08:28 → 4SSUR 14:13 → 2SICU 05-12 02:26 → 3SCARD 05-12 21:00 → 4SSUR 05-15 18:48
PROVIDERS: ADMIT Hospitalist; ATTEND Hospitalist
PROC: 0WQF0ZZ Repair Abdominal Wall, Open Approach (ICD-10-PCS; 2024-05-09)
PROC: 0DQ80ZZ Repair Small Intestine, Open Approach (ICD-10-PCS; 2024-05-09)
PROC: 0FT40ZZ Resection of Gallbladder, Open Approach (ICD-10-PCS; principal; 2024-05-09 08:35)
DX: K80.12 Calculus of gallbladder with acute and chronic cholecystitis without obstruction (principal); K82.A1 Gangrene of gallbladder in cholecystitis; K56.7 Ileus, unspecified; N17.9 Acute kidney failure, unspecified; R47.01 Aphasia; I48.0 Paroxysmal atrial fibrillation; E11.22 Type 2 diabetes mellitus with diabetic chronic kidney disease; E66.9 Obesity, unspecified; I12.9 Hypertensive chronic kidney disease with stage 1 through stage 4 chronic kidney disease, or unspecified chronic kidney disease; N18.9 Chronic kidney disease, unspecified; J45.909 Unspecified asthma, uncomplicated; I25.5 Ischemic cardiomyopathy; Z90.49 Acquired absence of other specified parts of digestive tract; E78.5 Hyperlipidemia, unspecified; I25.10 Atherosclerotic heart disease of native coronary artery without angina pectoris; I25.2 Old myocardial infarction; K43.2 Incisional hernia without obstruction or gangrene; M19.90 Unspecified osteoarthritis, unspecified site; Z68.31 Body mass index [BMI] 31.0-31.9, adult; Z79.82 Long term (current) use of aspirin; Z79.84 Long term (current) use of oral hypoglycemic drugs; Z79.899 Other long term (current) drug therapy; Z85.038 Personal history of other malignant neoplasm of large intestine; Z85.46 Personal history of malignant neoplasm of prostate; Z87.891 Personal history of nicotine dependence; Z95.1 Presence of aortocoronary bypass graft; Z95.5 Presence of coronary angioplasty implant and graft
CPT/HCPCS: 36415; 70450; 71045; 74176; 76705; 80048; 80053; 81003; 82150; 83036; 83605; 83690; 83735; 84100; 84484; 85025; 85027; 85610; 85730; 87040; 87324; 88304; 93306; 96365; 96374; 96375; 99285

== ENCOUNTER → 2024-06-06 | Outpatient (CLI) | payer OTHER, MEDICARE ==
[2024-06-06 18:41] LABS: ALT 18 U/L (10-49); AST 17 U/L (14-35); Albumin 3.7 g/dL (3.8-4.9); Albumin/Globulin Ratio 1.48 Ratio (1.60-3.17); Alkaline Phosphatase 79 U/L (41-126); BUN/Creat Ratio 4.94 Ratio (12.00-20.00); Blood Urea Nitrogen 8.9 mg/dL (9.0-27.0); Calcium 9.2 mg/dL (8.7-10.3); Carbon Dioxide 25.9 mmol/L (21.6-31.8); Chloride 104 mmol/L (96-109); Chol/HDL Ratio 2.38 Ratio; Globulin 2.5 g/dL (1.6-3.3); Glucose 102 mg/dL (70-110); LDL Cholesterol,Calculated 57.2 mg/dL (0.0-131.0); Potassium 4.4 mmol/L (3.5-5.5); Sodium 143 mmol/L (135-145); Total Bilirubin 0.7 mg/dL (0.3-1.2); Total Protein 6.2 g/dL (6.2-8.2); VLDL Calculation 10.08 mg/dL (5.00-40.00)
[2024-06-06 18:44] LABS: NT-Pro-B-Type Natriuretic Pept 1496 pg/mL (0-450)
[2024-06-06 19:06] LABS: HCT 40.8 % (39.6-50.0); HGB 12.6 g/dL (13.0-17.0); MCH 28.8 pg (27.0-32.0); MCHC 30.9 g/dL (32.0-37.0); MCV 93.4 FL (80.0-97.0); NRBC Per 100 WBC 0 X 10*3/uL (0.00-0.01); Platelet Count 182 X 10*3/uL (140-440); RBC 4.37 X 10*6/uL (4.40-5.60); RDW 15.9 % (11.5-14.5); WBC 4.78 X 10*3/uL (4.50-10.00)
== END | disposition home or self-care (01) ==
LOC: LABWHC1 12:08
PROVIDERS: ATTEND Student in an Organized Health Care Education/Training Program
DX: Z13.6 Encounter for screening for cardiovascular disorders (principal); I50.9 Heart failure, unspecified; D72.9 Disorder of white blood cells, unspecified; E11.9 Type 2 diabetes mellitus without complications; E78.5 Hyperlipidemia, unspecified; E03.9 Hypothyroidism, unspecified; R79.89 Other specified abnormal findings of blood chemistry
CPT/HCPCS: 36415; 80053; 80061; 83036; 83880; 85027